=== PATIENT | female | born 1965 | race Caucasian/White ===

== ENCOUNTER 2017-08-10 13:35 | Emergency (ER) | payer OTHER ==
[~2017-08-10 13:35] MED LIST: ASPI-1471 PO; CHOL10005 PO; ESTR0.5T16 PO; ESTR10TA4 VG; FAMO-67 PO; IBUP200C71 PO; IMMUNE SUPPORT PO; LORA-629 PO; PROP10TA58 PO; TURM1POW3 PO; VITA-131 PO; [UNRECOGNIZED DRUG - MIXTURE]; [UNRECOGNIZED DRUG - OTHER] PO
--- NOTE | 2017-08-10 13:48 | ER Report ---
History and Physical Time Seen By MD: 13:47 Hx. of Stated Complaint: Patient reporting a bowel obstruction. HPI/ROS CHIEF COMPLAINT: Abdominal pain, believes she has a small bowel obstruction HISTORY OF PRESENT ILLNESS: 52-year-old female patient presents to emergency room with complaint of is very similar to what obstruction. Since that this started this morning after she ate breakfast. She states that she ate some cereal and vomited. She states she's not been able to eat or drink anything since then. She states the pain is a 10 out of 10. Patient states she has a history of ovarian cancer and has been receiving chemotherapy for this. She states that 6 weeks ago she received chemotherapy and this occurred. She states that her numbers improved and she had more chemotherapy recently. She states that all for abdominal symptoms are today. States last time she had this she is medicated to the hospital for a couple of days. She states that she does not want to have a CAT scan at this time. REVIEW OF SYSTEMS: Respiratory: No cough, no dyspnea. Cardiovascular: No chest pain, no palpitations. Gastrointestinal: As noted above Musculoskeletal: No back pain. Allergies: Coded Allergies: gluten (Verified Allergy, Mild, 06/26/17) Feels better not eating Gluten methimazole (Verified Allergy, Unknown, Hives/Rash, 06/26/17) Home Meds Discontinued Reported Medications Famotidine (FAMOTIDINE) 20 Mg Tablet, 20 MG PO QDAY, TAB 06/26/17 Aspirin (ASPIR 81) 81 Mg Tablet.dr, 81 MG PO QDAY, TAB 06/26/17 [JuJube/ejaio mixture] No Conflict Check, 1 DAILY 01/17/17 [gogi berries] No Conflict Check, 1 TSP PO DAILY 01/17/17 [immune Support] No Conflict Check, 1 CAP PO DAILY 01/17/17 Loratadine (LORATADINE) 10 Mg Tablet, 1 TAB PO DAILY Y for ALLERGY SYMPTOMS 01/17/17 Turmeric (CURCUMIN) 1 Gm Powder, 1000 MG PO DAILY 01/17/17 Vitamin B Complex (VITAMIN B COMPLEX) 1 Each Tablet, 0.5 TAB PO DAILY 01/17/17 Cholecalciferol (Vitamin D3) (VITAMIN D3) 1,000 Unit Tablet, 1 TAB PO DAILY, TAB 01/17/17 Past Medical/Surgical History Patient has a past medical history of ovarian cancer, and frequent alcohol use. Patient has a surgical history of hysterectomy, knee surgery 2, colonoscopy, EGD. Reviewed Nurses Notes: Yes Smoking Status: Never Smoker Hx Substance Use Disorder: No Hx Alcohol Use: Yes (INFREQUENTLY) Constitutional Vital Sign - Last 24 Hours 08/10/17 08/10/17 08/10/17 08/10/17 13:40 13:40 13:45 13:50 Temp 98.7 Pulse 68 69 79 Resp 18 B/P (MAP) 107/69 (82) 107/69 Pulse Ox 90 97 100 97 O2 Delivery Room Air 08/10/17 08/10/17 08/10/17 08/10/17 14:45 14:45 15:15 15:30 Pulse 74 70 B/P (MAP) 103/50 (67) 102/58 (73) Pulse Ox 93 96 O2 Delivery Room Air 08/10/17 08/10/17 08/10/17 08/10/17 15:40 15:45 15:50 15:55 Pulse 69 69 71 B/P (MAP) 101/49 (66) Pulse Ox 94 98 97 96 08/10/17 08/10/17 08/10/17 16:00 16:05 16:10 Pulse 73 69 B/P (MAP) 105/63 (77) Pulse Ox 93 95 96 Intake and Output 08/10/17 08/10/17 08/11/17 15:00 23:00 07:00 Intake Total 700 ml Balance 700 ml Physical Exam General Appearance: The patient is alert, has no immediate need for airway protection and no current signs of toxicity. ENT: Tympanic membranes are pearly-pizarro, auditory canals are patent, mucous membranes are moist. Respiratory: Chest is non tender, lungs are clear to auscultation. Cardiac: regular rate and rhythm Gastrointestinal: Abdomen is mildly distended and tender in the periumbilical region, no masses, bowel sounds hypoactive. Musculoskeletal: Neck: Neck is supple and non tender. Extremities have full range of motion and are non tender. Skin: No rashes or lesions. DIFFERENTIAL DIAGNOSIS: After history and physical exam differential diagnosis was considered for small bowel obstruction, constipation, gastroenteritis, worsening ascites. Medical Decision Making Data Points Result Diagram: 08/10/17 1346 08/10/17 1346 Laboratory Hematology Test 08/10/17 13:46 12/29/17 14:43 Red Blood Count 3.38 M/uL (4.17-5.56) Mean Corpuscular Volume 98.0 fL (80.0-96.0) Mean Corpuscular Hemoglobin 34.0 pg (26.0-33.0) Mean Corpuscular Hemoglobin Concent 34.7 g/dL (32.0-36.0) Red Cell Distribution Width 13.5 % (11.5-14.5) Mean Platelet Volume 6.2 fL (7.2-11.1) Neutrophils (%) (Auto) 87.0 % (39.4-72.5) Lymphocytes (%) (Auto) 9.8 % (17.6-49.6) Monocytes (%) (Auto) 2.6 % (4.1-12.4) Eosinophils (%) (Auto) 0.2 % (0.4-6.7) Basophils (%) (Auto) 0.4 % (0.3-1.4) Nucleated RBC Relative Count (auto) 0.1 /100WBC Neutrophils # (Auto) 4.4 K/uL (2.0-7.4) Lymphocytes # (Auto) 0.5 K/uL (1.3-3.6) Monocytes # (Auto) 0.1 K/uL (0.3-1.0) Eosinophils # (Auto) 0.0 K/uL (0.0-0.5) Basophils # (Auto) 0.0 K/uL (0.0-0.1) Nucleated RBC Absolute Count (auto) 0.01 K/uL Peripheral Blood Smear No Y/N Sodium Level 137 mmol/L (137-145) Potassium Level 3.2 mmol/L (3.5-5.0) Chloride Level 98 mmol/L (98-107) Carbon Dioxide Level 27 mmol/L (22-31) Blood Urea Nitrogen 18 mg/dl (7-18) Creatinine 0.70 mg/dl (0.52-1.04) Glomerular Filtration Rate Calc > 60.0 Random Glucose 108 mg/dl (75-110) Calcium Level 9.6 mg/dl (8.4-10.2) Total Bilirubin 1.1 mg/dl (0.2-1.3) Aspartate Amino Transf (AST/SGOT) 29 U/L (0-35) Alanine Aminotransferase (ALT/SGPT) 32 U/L (0-56) Alkaline Phosphatase 109 U/L (0-126) Total Protein 7.9 gm/dl (6.3-8.2) Albumin 4.1 g/dl (3.5-5.0) Amylase Level 70 U/L (0-110) Lipase 78 U/L (23-300) Urine Color Ciara Urine Clarity Slightly-cloudy Urine pH 5.0 pH (4.8-9.5) Urine Specific [place] 1.028 Urine Protein 30 mg/dL (NEGATIVE) Urine Glucose (UA) Negative mg/dL (NEGATIVE) Urine Ketones 20 mg/dL (NEGATIVE) Urine Blood Negative (NEGATIVE) Urine Nitrite Negative (NEGATIVE) Urine Bilirubin Negative (NEGATIVE) Urine Urobilinogen Negative mg/dL (0.2-1.9) Urine Leukocyte Esterase Trace (NEGATIVE) Urine RBC None /HPF (0-2/HPF) Urine WBC 3 /HPF (0-5/HPF) Urine Squamous Epithelial Cells None /LPF (</=FEW) Urine Calcium Oxalate Crystals Moderate /HPF (NONE) Urine Bacteria Negative /HPF (NONE-FEW) Urine Mucus Few /HPF (NONE-FEW) Chemistry Test 08/10/17 13:46 08/10/17 14:43 White Blood Count 5.0 k/uL (4.5-11.0) Red Blood Count 3.38 M/uL (4.17-5.56) Hemoglobin 11.5 g/dL (12.0-16.0) Hematocrit 33.1 % (34.0-47.0) Mean Corpuscular Volume 98.0 fL (80.0-96.0) Mean Corpuscular Hemoglobin 34.0 pg (26.0-33.0) Mean Corpuscular Hemoglobin Concent 34.7 g/dL (32.0-36.0) Red Cell Distribution Width 13.5 % (11.5-14.5) Platelet Count 272 K/uL (150-450) Mean Platelet Volume 6.2 fL (7.2-11.1) Neutrophils (%) (Auto) 87.0 % (39.4-72.5) Lymphocytes (%) (Auto) 9.8 % (17.6-49.6) Monocytes (%) (Auto) 2.6 % (4.1-12.4) Eosinophils (%) (Auto) 0.2 % (0.4-6.7) Basophils (%) (Auto) 0.4 % (0.3-1.4) Nucleated RBC Relative Count (auto) 0.1 /100WBC Neutrophils # (Auto) 4.4 K/uL (2.0-7.4) Lymphocytes # (Auto) 0.5 K/uL (1.3-3.6) Monocytes # (Auto) 0.1 K/uL (0.3-1.0) Eosinophils # (Auto) 0.0 K/uL (0.0-0.5) Basophils # (Auto) 0.0 K/uL (0.0-0.1) Nucleated RBC Absolute Count (auto) 0.01 K/uL Peripheral Blood Smear No Y/N Glomerular Filtration Rate Calc > 60.0 Calcium Level 9.6 mg/dl (8.4-10.2) Total Bilirubin 1.1 mg/dl (0.2-1.3) Aspartate Amino Transf (AST/SGOT) 29 U/L (0-35) Alanine Aminotransferase (ALT/SGPT) 32 U/L (0-56) Alkaline Phosphatase 109 U/L (0-126) Total Protein 7.9 gm/dl (6.3-8.2) Albumin 4.1 g/dl (3.5-5.0) Amylase Level 70 U/L (0-110) Lipase 78 U/L (23-300) Urine Color Ciara Urine Clarity Slightly-cloudy Urine pH 5.0 pH (4.8-9.5) Urine Specific [place] 1.028 Urine Protein 30 mg/dL (NEGATIVE) Urine Glucose (UA) Negative mg/dL (NEGATIVE) Urine Ketones 20 mg/dL (NEGATIVE) Urine Blood Negative (NEGATIVE) Urine Nitrite Negative (NEGATIVE) Urine Bilirubin Negative (NEGATIVE) Urine Urobilinogen Negative mg/dL (0.2-1.9) Urine Leukocyte Esterase Trace (NEGATIVE) Urine RBC None /HPF (0-2/HPF) Urine WBC 3 /HPF (0-5/HPF) Urine Squamous Epithelial Cells None /LPF (</=FEW) Urine Calcium Oxalate Crystals Moderate /HPF (NONE) Urine Bacteria Negative /HPF (NONE-FEW) Urine Mucus Few /HPF (NONE-FEW) Urinalysis Test 08/10/17 14:43 Urine Color Ciara Urine Clarity Slightly-cloudy Urine pH 5.0 pH (4.8-9.5) Urine Specific [place] 1.028 Urine Protein 30 mg/dL (NEGATIVE) Urine Glucose (UA) Negative mg/dL (NEGATIVE) Urine Ketones 20 mg/dL (NEGATIVE) Urine Blood Negative (NEGATIVE) Urine Nitrite Negative (NEGATIVE) Urine Bilirubin Negative (NEGATIVE) Urine Urobilinogen Negative mg/dL (0.2-1.9) Urine Leukocyte Esterase Trace (NEGATIVE) Urine RBC None /HPF (0-2/HPF) Urine WBC 3 /HPF (0-5/HPF) Urine Squamous Epithelial Cells None /LPF (</=FEW) Urine Calcium Oxalate Crystals Moderate /HPF (NONE) Urine Bacteria Negative /HPF (NONE-FEW) Urine Mucus Few /HPF (NONE-FEW) EKG/Imaging Imaging Exam type: KUB SINGLE VIEW ABDOMEN History: Small bowel obstruction, abdomen pain and cramping Comparison: The liver 2016. Findings: There is a moderate amount of fecal material seen in the colon. Air is seen in a loop of small bowel in the left upper quadrant which appears nonspecific. No gross evidence of organomegaly. There are calcified phleboliths in the pelvis. IMPRESSION: 1. There is a moderate amount of fecal material seen throughout the colon which can be seen with constipation. If a small bowel obstruction remains a strong clinical concern CT of abdomen pelvis recommended Report Dictated By: Lainey Mendez MD at 08/10/2017 2:09 PM Report E-Signed By: Lainey Mendez MD at 08/10/2017 2:11 PM ED Course/Re-evaluation ED Course Patient was admitted to exam room, history and physical were obtained. Differential diagnoses were considered. On examination patient was having significant amounts of discomfort. A CBC, CMP, urinalysis, KUB were done. Lab results were unremarkable, urine was negative. KUB showed moderate amount stool consistent with constipation. I discussed with patient. She talked about doing a paracentesis for improved comfort. I discussed this with Dr. Larsen, surgeon, who felt this would be a little excessive. He recommended going ahead and treating the constipation, and if there's no improvement in the next 24-48 hours the patient returned, ultrasound would ultrasound the abdomen and possibly do a paracentesis. I discussed this with the patient. Patient states she's feeling significantly improved, her pain levels were down considerably. We did give her a cup of coffee which she was able to tolerate without any vomiting. We will go ahead and discharge patient home at this time. I discussed this with the patient who verbalized understanding and agreement. Decision to Disposition Date: Aug 10, 2017 Decision to Disposition Time: 16:03 Depart Departure Latest Vital Signs Vital Signs Date Time Temp Pulse Resp B/P (MAP) Pulse Ox O2 Delivery O2 Flow Rate FiO2 08/10/17 16:10 96 08/10/17 16:05 69 08/10/17 16:00 105/63 (77) 08/10/17 14:45 Room Air 08/10/17 13:40 98.7 18 Impression: Primary Impression: Abdominal pain Additional Impression: Constipation Condition: Improved Disposition: HOME OR SELF-CARE Referrals: JOSÉ PÉREZ MD (PCP) New Scripts No Active Prescriptions or Reported Meds Patient Instructions: Abdominal Pain (ED) Additional Instructions: Limit activity by pain. Increase fluid intake. Continue with walking. Return to the ER if condition worsens. At that time we will do an Ultrasound and see how much ascites we have. Take the Mag citrate to have a bowel movement. Problem Qualifiers Primary Impression: Abdominal pain Abdominal location: generalized Qualified Codes: R10.84 - Generalized abdominal pain Additional Impression: Constipation Constipation type: unspecified constipation type Qualified Codes: K59.00 - Constipation, unspecified CARLA FORREST Aug 10, 2017 13:48
[2017-08-10] MEDS ORDERED: NS(*) 0.9% 1000 ML BAG 1,000 ML IV ONE (13:51)
[2017-08-10] MEDS ORDERED: ONDANSETRON 4 MG/2 ML VIAL IVP ONE (13:55)
[2017-08-10] MEDS ORDERED: MORPHINE 4 MG/ML SYR IVP ONE (13:55)
[2017-08-10 13:59] LABS: PLATELET COUNT, AUTOMATED 272 K/uL (150-450)
--- NOTE | 2017-08-10 14:15 | RADIOLOGY IMAGING REPORT ---
FACILITY: [facility] PATIENT NAME: Laverne Mcadams : 1965 MR: [id number] V: [id number] EXAM DATE: ORDERING PHYSICIAN: CARLA FORREST TECHNOLOGIST: Location: [facility] [place] Patient: Laverne Mcadams : 1965 Visit/Account:[id number] Date of Sevice: 08/10/2017 Exam type: KUB SINGLE VIEW ABDOMEN History: Small bowel obstruction, abdomen pain and cramping Comparison: The liver 2016. Findings: There is a moderate amount of fecal material seen in the colon. Air is seen in a loop of small bowel in the left upper quadrant which appears nonspecific. No gross evidence of organomegaly. There are calcified phleboliths in the pelvis. IMPRESSION: 1. There is a moderate amount of fecal material seen throughout the colon which can be seen with con stipation. If a small bowel obstruction remains a strong clinical concern CT of abdomen pelvis recom mended Report Dictated By: Lainey Mendez MD at 08/10/2017 2:09 PM Report E-Signed By: Lainey Mendez MD at 08/10/2017 2:11 PM WSN:[id number]
[2017-08-10 16:00] VITALS: BP 105/63
[2017-08-10] MEDS ORDERED: MAGNESIUM CITRATE 300 ML BTL PO ONE (16:05)
== END 2017-08-10 16:21 | disposition home or self-care (01) ==
LOC: ER 14:00
DX: K59.00 Constipation, unspecified (principal)
CPT/HCPCS: 74000; 81001; 82150; 83690; 85025; 87088; 96374; 96375; 99284; J2270; J2405; 82040; 82247; 82310; 82374; 82435; 82565; 82947; 84075; 84132; 84155; 84295; 84450; 84460; 84520

== ENCOUNTER 2018-01-16 12:29 | Inpatient (IN) | payer OTHER ==
[~2018-01-16] VITALS: Ht 162.6 cm; Wt 55.8 kg
[2018-01-16] MEDS ORDERED: [UNRECOGNIZED DRUG - CODE] PO (12:48)
[2018-01-16] MEDS ORDERED: BEV100I IV (12:48)
[2018-01-16] MEDS ORDERED: NS(*) 0.9% 1000 ML BAG 1,000 ML IV ONE (12:51)
[2018-01-16] MEDS ORDERED: ONDANSETRON 4 MG/2 ML VIAL IVP ONE (12:55)
--- NOTE | 2018-01-16 12:55 | ER Report ---
History and Physical Time Seen By MD: 12:45 Hx. of Stated Complaint: ABDOMINAL PAINSINCE LAST EVENING. HAS CERVICAL CANCER. THIS PAIN FEELS SIMILAR TO WHEN SHE WAS ADMITTED FOR A BOWEL OBSTRUCTIONS LAST FALL HPI/ROS CHIEF COMPLAINT: Abdominal pain HISTORY OF PRESENT ILLNESS: 52-year-old female comes emergency Department today with periumbilical and infraumbilical abdominal pain which is guaiac last 2 days and decreased bowel movements she's taking laxatives 3 with some mild return patient is a long history of ovarian cancer with metastatic changes consistent with intra-abdominal metastatic cancer she has had a complete hysterectomy and oophorectomy including fallopian tubes she has had both peritoneal chemotherapy as well as IV chemotherapy with her last being somewhat successful she states that she's had small bowel obstructions in the past but has not required surgical intervention last one was about a week or 2 ago where she was able to medically manage as an outpatient. Patient has had no nausea vomiting but has had abdominal pain again localized infraumbilical area dull aching cramping comes and goes relieved with [id number] pain medication and with hot towels patient denies any urinary complaints bladder bowel incontinence REVIEW OF SYSTEMS: Respiratory: No cough, no dyspnea. Cardiovascular: No chest pain, no palpitations. Gastrointestinal: Abdominal pain without vomiting constipation Musculoskeletal: No back pain. Remainder of the 14 system rev: Yes Allergies: Coded Allergies: gluten (Verified Allergy, Mild, 01/16/18) Feels better not eating Gluten methimazole (Verified Allergy, Unknown, Hives/Rash, 01/16/18) Home Meds Reported Medications Creatine Monohydrate (CYTOTINE) 1.5 Gm/15 Ml Liquid, 1.5 GM PO 01/16/18 Bevacizumab (AVASTIN) 100 Mg/4 Ml Injs, 100 MG IV 01/16/18 Reviewed Nurses Notes: Yes Old Medical Records Reviewed: Yes Smoking Status: Never Smoker Hx Substance Use Disorder: No Hx Alcohol Use: Yes (INFREQUENTLY) Constitutional Vital Sign - Last 24 Hours 01/16/18 01/16/18 01/16/18 01/16/18 12:36 12:43 12:44 12:45 Temp 97.5 Pulse 50 54 Resp 16 B/P (MAP) 141/87 (105) 141/87 125/76 (92) Pulse Ox 92 95 O2 Delivery Room Air 01/16/18 01/16/18 01/16/18/6/18 12:59 13:00 13:14 13:15 Pulse 62 83 B/P (MAP) 115/80 (92) 113/89 (97) Pulse Ox 92 92 01/16/18 01/16/18 01/16/18 01/16/18 13:29 13:30 13:44 13:45 Pulse ??? 57 B/P (MAP) ???/??? (1665) 108/85 (93) 107/79 (88) Pulse Ox 96 01/16/18 01/16/18 01/16/18 13:59 14:00 14:14 Pulse 64 B/P (MAP) 118/76 (90) Pulse Ox 93 O2 Flow Rate 2.0 Physical Exam General Appearance: The patient is alert, has no immediate need for airway protection and no current signs of toxicity. [ ] Eyes: Pupils equal and round no injection. Respiratory: Chest is non tender, lungs are clear to auscultation. Cardiac: regular rate and rhythm [ ] Gastrointestinal: Abdomen examination demonstrates a firm to palpation in about a 6 x 10 cm area infra-abdominal umbilical area no rebound with some mild tenderness to palpation decreased bowel sounds around the area otherwise unremarkable exam Musculoskeletal: Neck: Neck is supple and non tender. Extremities have full range of motion and are non tender. Skin: No rashes or lesions. [ ] DIFFERENTIAL DIAGNOSIS: After history and physical exam differential diagnosis was considered for small bowel obstruction colitis and enteritis Medical Decision Making Data Points Result Diagram: 01/16/18 1309 01/16/18 1309 Laboratory Hematology Test 01/16/18 12:38 01/16/18 13:09 Urine Color Ciara Urine Clarity Slightly-cloudy Urine pH 5.0 pH (4.8-9.5) Urine Specific [place] 1.025 Urine Protein 30 mg/dL (NEGATIVE) Urine Glucose (UA) Negative mg/dL (NEGATIVE) Urine Ketones 20 mg/dL (NEGATIVE) Urine Blood Negative (NEGATIVE) Urine Nitrite Negative (NEGATIVE) Urine Bilirubin Negative (NEGATIVE) Urine Urobilinogen Negative mg/dL (0.2-1.9) Urine Leukocyte Esterase Negative (NEGATIVE) Urine RBC 2 /HPF (0-2/HPF) Urine WBC 3 /HPF (0-5/HPF) Urine Squamous Epithelial Cells Moderate /LPF (</=FEW) Urine Bacteria Negative /HPF (NONE-FEW) Urine Hyaline Casts Few /LPF (NONE-FEW) Urine Mucus Few /HPF (NONE-FEW) Red Blood Count 4.50 M/uL (4.17-5.56) Mean Corpuscular Volume 98.0 fL (80.0-96.0) Mean Corpuscular Hemoglobin 34.5 pg (26.0-33.0) Mean Corpuscular Hemoglobin Concent 35.2 g/dL (32.0-36.0) Red Cell Distribution Width 14.8 % (11.5-14.5) Mean Platelet Volume 6.8 fL (7.2-11.1) Neutrophils (%) (Auto) 73.4 % (39.4-72.5) Lymphocytes (%) (Auto) 14.5 % (17.6-49.6) Monocytes (%) (Auto) 8.6 % (4.1-12.4) Eosinophils (%) (Auto) 2.5 % (0.4-6.7) Basophils (%) (Auto) 1.0 % (0.3-1.4) Nucleated RBC Relative Count (auto) 0.1 /100WBC Neutrophils # (Auto) 3.7 K/uL (2.0-7.4) Lymphocytes # (Auto) 0.7 K/uL (1.3-3.6) Monocytes # (Auto) 0.4 K/uL (0.3-1.0) Eosinophils # (Auto) 0.1 K/uL (0.0-0.5) Basophils # (Auto) 0.1 K/uL (0.0-0.1) Nucleated RBC Absolute Count (auto) 0.00 K/uL Prothrombin Time 13.0 seconds (12.0-14.4) Prothromb Time International Ratio 0.98 Activated Partial Thromboplast Time 26 seconds (23-35) Sodium Level 133 mmol/L (137-145) Potassium Level 4.0 mmol/L (3.5-5.0) Chloride Level 96 mmol/L (98-107) Carbon Dioxide Level 21 mmol/L (22-31) Blood Urea Nitrogen 15 mg/dl (7-18) Creatinine 0.90 mg/dl (0.52-1.04) Glomerular Filtration Rate Calc > 60.0 Random Glucose 101 mg/dl (75-110) Calcium Level 9.8 mg/dl (8.4-10.2) Total Bilirubin 1.5 mg/dl (0.2-1.3) Aspartate Amino Transf (AST/SGOT) 32 U/L (0-35) Alanine Aminotransferase (ALT/SGPT) 42 U/L (0-56) Alkaline Phosphatase 105 U/L (0-126) Total Protein 7.6 gm/dl (6.3-8.2) Albumin 4.3 g/dl (3.5-5.0) Lipase 155 U/L (23-300) Chemistry Test 01/16/18 12:38 01/16/18 13:09 Urine Color Ciara Urine Clarity Slightly-cloudy Urine pH 5.0 pH (4.8-9.5) Urine Specific [place] 1.025 Urine Protein 30 mg/dL (NEGATIVE) Urine Glucose (UA) Negative mg/dL (NEGATIVE) Urine Ketones 20 mg/dL (NEGATIVE) Urine Blood Negative (NEGATIVE) Urine Nitrite Negative (NEGATIVE) Urine Bilirubin Negative (NEGATIVE) Urine Urobilinogen Negative mg/dL (0.2-1.9) Urine Leukocyte Esterase Negative (NEGATIVE) Urine RBC 2 /HPF (0-2/HPF) Urine WBC 3 /HPF (0-5/HPF) Urine Squamous Epithelial Cells Moderate /LPF (</=FEW) Urine Bacteria Negative /HPF (NONE-FEW) Urine Hyaline Casts Few /LPF (NONE-FEW) Urine Mucus Few /HPF (NONE-FEW) White Blood Count 5.1 k/uL (4.5-11.0) Red Blood Count 4.50 M/uL (4.17-5.56) Hemoglobin 15.5 g/dL (12.0-16.0) Hematocrit 44.1 % (34.0-47.0) Mean Corpuscular Volume 98.0 fL (80.0-96.0) Mean Corpuscular Hemoglobin 34.5 pg (26.0-33.0) Mean Corpuscular Hemoglobin Concent 35.2 g/dL (32.0-36.0) Red Cell Distribution Width 14.8 % (11.5-14.5) Platelet Count 311 K/uL (150-450) Mean Platelet Volume 6.8 fL (7.2-11.1) Neutrophils (%) (Auto) 73.4 % (39.4-72.5) Lymphocytes (%) (Auto) 14.5 % (17.6-49.6) Monocytes (%) (Auto) 8.6 % (4.1-12.4) Eosinophils (%) (Auto) 2.5 % (0.4-6.7) Basophils (%) (Auto) 1.0 % (0.3-1.4) Nucleated RBC Relative Count (auto) 0.1 /100WBC Neutrophils # (Auto) 3.7 K/uL (2.0-7.4) Lymphocytes # (Auto) 0.7 K/uL (1.3-3.6) Monocytes # (Auto) 0.4 K/uL (0.3-1.0) Eosinophils # (Auto) 0.1 K/uL (0.0-0.5) Basophils # (Auto) 0.1 K/uL (0.0-0.1) Nucleated RBC Absolute Count (auto) 0.00 K/uL Prothrombin Time 13.0 seconds (12.0-14.4) Prothromb Time International Ratio 0.98 Activated Partial Thromboplast Time 26 seconds (23-35) Glomerular Filtration Rate Calc > 60.0 Calcium Level 9.8 mg/dl (8.4-10.2) Total Bilirubin 1.5 mg/dl (0.2-1.3) Aspartate Amino Transf (AST/SGOT) 32 U/L (0-35) Alanine Aminotransferase (ALT/SGPT) 42 U/L (0-56) Alkaline Phosphatase 105 U/L (0-126) Total Protein 7.6 gm/dl (6.3-8.2) Albumin 4.3 g/dl (3.5-5.0) Lipase 155 U/L (23-300) Coagulation Test 01/16/18 13:09 Prothrombin Time 13.0 seconds Prothromb Time International Ratio 0.98 Activated Partial Thromboplast Time 26 seconds Urinalysis Test 01/16/18 12:38 Urine Color Ciara Urine Clarity Slightly-cloudy Urine pH 5.0 pH (4.8-9.5) Urine Specific [place] 1.025 Urine Protein 30 mg/dL (NEGATIVE) Urine Glucose (UA) Negative mg/dL (NEGATIVE) Urine Ketones 20 mg/dL (NEGATIVE) Urine Blood Negative (NEGATIVE) Urine Nitrite Negative (NEGATIVE) Urine Bilirubin Negative (NEGATIVE) Urine Urobilinogen Negative mg/dL (0.2-1.9) Urine Leukocyte Esterase Negative (NEGATIVE) Urine RBC 2 /HPF (0-2/HPF) Urine WBC 3 /HPF (0-5/HPF) Urine Squamous Epithelial Cells Moderate /LPF (</=FEW) Urine Bacteria Negative /HPF (NONE-FEW) Urine Hyaline Casts Few /LPF (NONE-FEW) Urine Mucus Few /HPF (NONE-FEW) ED Course/Re-evaluation ED Course Small bowel obstruction admitted by surgery confirmed on CT scan Decision to Disposition Date: Jan 16, 2018 Decision to Disposition Time: 14:42 Depart Departure Latest Vital Signs Vital Signs Date Time Temp Pulse Resp B/P (MAP) Pulse Ox O2 Delivery O2 Flow Rate FiO2 01/16/18 14:14 2.0 01/16/18 14:00 118/76 (90) 01/16/18 13:59 64 93 01/16/18 12:43 97.5 16 Room Air Impression: Primary Impression: Small bowel obstruction Condition: Improved Disposition: Admitted from ER Referrals: JOSÉ PÉREZ MD (PCP) MYNOR GARIBAY MD Jan 16, 2018 12:55
[2018-01-16 13:22] LABS: PLATELET COUNT, AUTOMATED 311 K/uL (150-450)
[2018-01-16] MEDS ORDERED: IOPAMIDOL 76% 75 ML INFUS BTL 75 ML ONE (13:29)
[2018-01-16 13:38] LABS: INR 0.98
--- NOTE | 2018-01-16 13:54 | RADIOLOGY IMAGING REPORT ---
FACILITY: [facility] PATIENT NAME: Laverne Mcadams : 1965 MR: [id number] V: [id number] EXAM DATE: ORDERING PHYSICIAN: MYNOR GARIBAY TECHNOLOGIST: Location: [facility] [place] Patient: Laverne Mcadams : 1965 Visit/Account:[id number] Date of Sevice: 01/16/2018 2 VIEWS CHEST INDICATION: Abdominal pain. COMPARISON: 06/26/2017 FINDINGS: Tiny calcified nodule seen in the left mid and upper lung characteristic of old granulomatous disease . Subtle asymmetric opacity overlies the right lung base and overlies the anterior margin of the sixt h rib. This was seen on prior study. This could represent overlying osseous and vascular structures o r even a nipple shadow. No effusion or pneumothorax is seen. Heart size and mediastinal contours are normal. IMPRESSION: 1. No radiographic evidence of active disease. 2. No interval change. Report Dictated By: Akbar Gao at 01/16/2018 1:45 PM Report E-Signed By: Akbar Gao at 01/16/2018 1:50 PM WSN:[id number]
[2018-01-16] MEDS ORDERED: HYDROmorphone* 1 MG/ML 1 MG/ML ML IVP ONE (14:00)
--- NOTE | 2018-01-16 14:12 | RADIOLOGY IMAGING REPORT ---
[place] [facility] [place] Laverne Mcadams : 1965 MR: [id number] V: [id number] EXAM DATE: ORDERING PHYSICIAN: MYNOR GARIBAY TECHNOLOGIST: Location: [facility] [place] Patient: Laverne Mcadams : 1965 Visit/Account:[id number] Date of Sevice: 01/16/2018 ABDOMEN/PELVIS WITH CONTRAST HISTORY: pain ro sbo TECHNIQUE: Following administration of IV contrast contiguous axial images acquired through the abdom en/pelvis. Coronal and sagittal reformatting also performed. Dose Lowering Technique One of the following dose optimization techniques was utilized in the performance of this exam: Autom ated exposure control; adjustment of the mA and/or kV according to the patient's size; or use of an i terative reconstruction technique. Specific details can be referenced in the facility's radiology C T exam operational policy. CONTRAST: 75 mL Isovue-370 COMPARISON: June 26, 2017 FINDINGS: Visualized lung bases: Negative. Hepatobiliary: The previously noted 7 mm subcapsular hypodensity lateral inferior right lobe the live r appears unchanged and is best seen on image 173.. Previously noted 9 mm hypodense lesion lateral a spect right lobe the liver also remains unchanged best seen on image 113. There is a 6 mm subcapsula r hypodensity superolateral aspect the right lobe best seen on image 70 which is faintly seen on the prior study and appears relatively unchanged in size. Spleen: Negative. Adrenals: Negative. Pancreas: Negative. Kidneys ureters or bladder: Kidneys appear grossly unremarkable. The bladder is decompressed Genitalia: Hysterectomy GI: There are numerous loops of moderately dilated fluid-filled small bowel in the mid and lower abd omen measuring up to 3.6 cm in diameter.. There is a possible transitional point in the anterior rig ht mid to lower abdomen. The colon and terminal ileum appear decompressed Vessels/spaces/nodes: There is a small amount of abdominal and pelvic ascites . Bones/soft tissues: Negative. Additional findings: None pertinent. IMPRESSION: There are multiple dilated small bowel loops throughout the abdomen with a possible transitional poin t in the anterior right mid to lower abdomen. The colon appears decompressed as does the terminal il eum findings are likely related to a small bowel obstruction Small amount of abdominal and pelvic ascites Small hypodensities in the liver appear unchanged Results were called to MYNOR GARIBAY at 01/16/2018 2:08 PM. Report Dictated By: Lainey Mendez MD at 01/16/2018 1:47 PM Report E-Signed By: Lainey Mendez MD at 01/16/2018 2:08 PM [email or web address]
[2018-01-16 15:27] VITALS: BP 116/78
--- NOTE | 2018-01-16 16:12 | RADIOLOGY IMAGING REPORT ---
FACILITY: [facility] - [place] PATIENT NAME: Laverne Mcadams : 1965 MR: [id number] V: [id number] EXAM DATE: ORDERING PHYSICIAN: MYNOR GARIBAY TECHNOLOGIST: Location: [facility] Patient: Laverne Mcadams : 1965 Visit/Account:[id number] Date of Sevice: 01/16/2018 KUB SINGLE VIEW ABDOMEN HISTORY: NG TUBE PLACEMENT Additional history: SBO COMPARISON: Comparison made to abdomen/pelvis CT performed earlier today. FINDINGS: NG tube appears appropriately positioned in the stomach. Again seen are distended loops of small bow el and absent gas in the colon consistent with history of small bowel obstruction. In reviewing the previous CT scan I believe the obstruction is in fact that the terminal ileum. The appendix can be s een on the previous CT scan and is normal. Prior CT scan demonstrates free fluid which is likely inf lammatory. There is no free air on the prior study. There is mild right-sided hydronephrosis and ureterectasis which terminates in the region of small everardo wel obstruction. This is due to extrinsic compression by the obstructed segment. IMPRESSION: NG tube appears well-positioned. Retained contrast in a mildly distended right renal collecting system which is related to extrinsic c ompression at the level of the GI obstruction. In reviewing the CT actually the area of obstruction is at the terminal ileum (any history of Crohn's disease?). Report Dictated By: Misael Bull MD at 01/16/2018 3:53 PM Report E-Signed By: Misael Bull MD at 01/16/2018 4:07 PM WSN:[email or web address]
[2018-01-16] MEDS ORDERED: ONDANSETRON 4 MG/2 ML VIAL IVP PRN (16:50)
[2018-01-16] MEDS ORDERED: MORPHINE 1 MG/ML 30 ML PCA IV PRN (16:50)
--- NOTE | 2018-01-16 16:59 | General Surgery 1 H&P ---
History of Present Illness Chief Complaint abdominal pain History of Present Illness 52 yo female with a history of metastatic ovarian cancer. she is currently on chemotherapy and had avastin one week ago. she had a franklin and bso in 2017 for her cancer. she had a recurrence and had another debulking procedure in 2017. she developed a sbo in jul that resolved with conservative management. yesterday she developed periumbilical abdominal pain that was quite severe. no emesis. no fever. seen in ed she has normal wbc and a ct which suggests a distal sbo. pt would like to enter a clinical trial for continued treatment for her ovarian cancer. her gynecologic surgeon is in [facility] History Other Past Surgeries: franklin and bso and a debulking operation Home Meds Reported Medications Creatine Monohydrate (CYTOTINE) 1.5 Gm/15 Ml Liquid, 1.5 GM PO 01/16/18 Bevacizumab (AVASTIN) 100 Mg/4 Ml Injs, 100 MG IV 01/16/18 Allergies: Coded Allergies: gluten (Verified Allergy, Mild, 01/16/18) Feels better not eating Gluten methimazole (Verified Allergy, Unknown, Hives/Rash, 01/16/18) Family History: FH: COPD (chronic obstructive pulmonary disease) FATHER FH: Gilbert's disease FATHER FH: arthritis FATHER FH: celiac disease FH: hypothyroidism CHILD CHILD FH: multiple sclerosis BROTHER OR SISTER BROTHER OR SISTER FH: osteoporosis MOTHER BROTHER OR SISTER Graves' disease Review of Systems History of Hypertension?: No History of Diabetes?: No History of DVT?: No Obstructive Sleep Apnea?: No History of Liver Disease?: No History of Kidney Disease?: No Exam Vital Signs Date Time Temp Pulse Resp B/P (MAP) Pulse Ox O2 Delivery O2 Flow Rate FiO2 01/16/18 16:00 99 Nasal Cannula 2.0 01/16/18 15:27 98.7 51 12 116/78 (91) General Appearance: Alert, Awake GI: Other (her abdomen is distended in the lower abdomen with a firmness that is not found above the umbilicus. she states it has been like that for some time.) Medical Decision Making Data Points Result Diagram: 01/16/18 1309 01/16/18 1309 Assessment and Plan Problems: (1) Small bowel obstruction Status: Acute Assessment & Plan: admit , npo iv hydration and analgesia. ng tube and try conservative management. Copies to: CHIKIS CARDONA MD Venous Thromboembolism Antithrombotics Is Pt On Any Antithrombotics?: No CHIKIS CARDONA MD Jan 16, 2018 16:59
[2018-01-16 19:43] VITALS: BP 116/63
[2018-01-16] MEDS: NORMOSOL R SOLN(*) 1000 ML BAG 1,000 ML IV PRN (20:02)
[2018-01-16] MEDS ORDERED: CYCL50CA PO (20:58)
[2018-01-16] MEDS ORDERED: CHOL100058 PO (20:58)
[2018-01-17 00:11] VITALS: BP 130/75
[2018-01-17] MEDS: NORMOSOL R SOLN(*) 1000 ML BAG 1,000 ML IV PRN (02:14)
[2018-01-17 05:34] VITALS: BP 100/66
[2018-01-17 05:48] LABS: PLATELET COUNT, AUTOMATED 233 K/uL (150-450)
[2018-01-17] MEDS ORDERED: NORMOSOL R SOLN(*) 1000 ML BAG 1,000 ML IV PRN (07:06)
--- NOTE | 2018-01-17 07:09 | General Surgery Progress Note ---
Subjective Progress Notes Subjective no pain , no nausea, ng about 175 cc Physical Exam Vital Signs Date Time Temp Pulse Resp B/P (MAP) Pulse Ox O2 Delivery O2 Flow Rate FiO2 01/17/18 05:34 98.0 60 100/66 (77) 97 Nasal Cannula 2.0 01/16/18 20:50 14 General Appearance: Alert, Awake GI: Soft and Non-Tender (no flatus or bm) Result Diagram: 01/17/18 0533 01/16/18 1309 Assessment and Plan Problems: (1) Small bowel obstruction Status: Acute Assessment & Plan: admit , npo iv hydration and analgesia. ng tube and try conservative management. 01/17/18 stable. Exam Sepsis Risk: No Definite Risk CHIKIS CARDONA MD Jan 17, 2018 07:09
[2018-01-17 08:09] VITALS: BP 91/65
[2018-01-17] MEDS ORDERED: PANTOPRAZOLE SOD 40 MG IV VIAL IVP SCH (09:00)
[2018-01-17] MEDS ORDERED: ENOXAPARIN 40 MG/0.4ML SYR SC SCH (09:00)
[2018-01-17 11:36] VITALS: BP 112/62
--- NOTE | 2018-01-17 14:00 | Medical Nutrition Therapy ---
Nutrition Anthropometrics Height (Inches): 64.00 Height (Calculated Centimeters: 162.211877 Weight (Pounds): 123 Weight (Calculated Kilograms): 55.792 BMI: 21 Akira Nutrition Score: Adequate Akira Nutrition Risk Score: 21 Dietary Referral Nutrition Risk Factors: Nutrition Risk Comment: Physical Findings Physical Appearance: BMI 21 WNR Skin Appearance Skin Appearance: Edema Edema Location Modifier: Edema Location: Type of Edema: Degree of Edema: Gastrointestinal Symptoms GI Symtoms: Change in Bowel Pattern Tube Present: NG Bowel Sounds: Recent Bowel Pattern: Stool Characteristics: Nutritional Diagnosis Nutritional Risk Acuity 1: GI Obstruction (SBO) Nutritional Risk Acuity 3: Cancer, Gastritis/Gastroenteritis Past Medical History: Reocurrent carcinoma of ovary, constipation, abdominal pain, small bowl obstruction, cervical cancer Nutritional Acuity: 1-High Nutrition Diagnosis: Inadequate Food Intake, Altered GI Function Nutrition Etiology: Physiological Causes Nutrition Problem/Etiology/Sym: Altered GI function related to physiological causes AEB SBO. Inadequate oral intake related to SBO AEB clear liquid diet and doctor order for ng placement. Energy Requirement: 1643 ([place]- St. Jeor X 1.1 [id number] kcal/day) Protein Requirement: 61 (1.1g/kg help with healing.) Fluid Requirement: 1671 (30ml/kg ) Diet Type: Clear Liquids Nutrition Intervention: Encourage intake, Nutrition support, Change diet Nutrition Monitoring & Eval Nutrition Goals: Eat 50-100% Meal RD Patient Assessment Time: [address] Assessment Type: RD Assessment Patient Nutrition Acuity: 1-High Follow Up Date: Jan 19, 2018 Nutritional Comment: 6/7 Pt admitted for SBO. Pt experienced severe abdominal pain. Pt has hx of SBO, but states she has been able to manage it without surgery. Pt has cervical cancer and is receiving treatment from cancer center. Pt is on a clear liquid diet with no oral intake recorded at this time. Ng tube is ordered and try will conservative management. Continue to monitor pt progress and diet advancement. TRINITY NUÑEZJUSTIN Jan 17, 2018 09:59
--- NOTE | 2018-01-17 14:27 | General Surgery Progress Note ---
Subjective Progress Notes Subjective tolerating clears, no nausea or pain, wants to go home Physical Exam Vital Signs Date Time Temp Pulse Resp B/P (MAP) Pulse Ox O2 Delivery O2 Flow Rate FiO2 01/17/18 14:06 95 01/17/18 11:36 97.9 53 112/62 (79) Room Air 01/17/18 05:34 2.0 01/16/18 20:50 14 Intake and Output 01/18/18 06:59 Intake Total 1702 ml Balance 1702 ml Intake Oral 720 ml IV Total 982 ml # Voids 1 # Bowel Movements 1 GI: Other (had bm) Result Diagram: 01/17/18 0533 01/16/18 1309 Assessment and Plan Problems: (1) Small bowel obstruction Status: Acute Assessment & Plan: admit , npo iv hydration and analgesia. ng tube and try conservative management. 01/17/18 stable. 01/17 had bm, no pain and wants to go home, will discharge Exam Sepsis Risk: No Definite Risk CHIKSI CARDONA MD Jan 17, 2018 14:27
--- NOTE | 2018-01-17 14:28 | Short(Outpt) Discharge Summary ---
Discharge Summary Reason for Hosp/Final Diag: (1) Small bowel obstruction Status: Acute Hospital Course & Plan: admit , npo iv hydration and analgesia. ng tube and try conservative management. 01/17/18 stable. 01/17 had bm, no pain and wants to go home, will discharge Departure Discharge to: Home Discharge Instructions Home Meds Reported Medications Cyclophosphamide (Cyclophosphamide) 50 Mg Capsule, 50 MG PO QDAY, CAPSULE 01/16/18 Cholecalciferol (Vitamin D3) (VITAMIN D) 1,000 Unit Capsule, 1000 UNIT PO, CAPSULE 01/16/18 Bevacizumab (AVASTIN) 100 Mg/4 Ml Injs, 100 MG IV Q3WK 01/16/18 Discontinued Reported Medications Creatine Monohydrate (CYTOTINE) 1.5 Gm/15 Ml Liquid, 1.5 GM PO 01/16/18 Diet: Regular Activity: As Tolerated Special Instructions: Follow up with your regular doctor and be careful of what you eat today. CHIKIS CARDONA MD Jan 17, 2018 14:28
== END 2018-01-17 14:00 | disposition home or self-care (01) | DRG 389 ==
LOC: ER 12:34 → MED 14:44
PROVIDERS: ADMIT Surgery; ATTEND Surgery
PROC: 0D9670Z Drainage of Stomach with Drainage Device, Via Natural or Artificial Opening (ICD-10-PCS; principal; 2018-01-16)
DX: K56.609 Unspecified intestinal obstruction, unspecified as to partial versus complete obstruction (principal); C79.89 Secondary malignant neoplasm of other specified sites; C53.9 Malignant neoplasm of cervix uteri, unspecified; Z90.710 Acquired absence of both cervix and uterus; Z88.8 Allergy status to other drugs, medicaments and biological substances; Z92.21 Personal history of antineoplastic chemotherapy
CPT/HCPCS: 36415; 71046; 74018; 74177; 81001; 82040; 82247; 82310; 82374; 82435; 82565; 82947; 83690; 84075; 84132; 84155; 84295; 84450; 84460; 84520; 85025; 85610; 85730; C9113; J1170; J1650; J2270; J2405; J7030; Q9967

== ENCOUNTER 2018-05-04 10:41 | Observation (INO) | payer OTHER ==
[~2018-05-04] VITALS: Ht 162.6 cm; Wt 53.1 kg
[~2018-05-04 10:41] MED LIST changes: +BEV100I IV; +CHOL100058 PO; +CYCL50CA PO; +IBUP-136 PO; -IBUP200C71 PO; +[UNRECOGNIZED DRUG - CODE] PO
[2018-05-04] MEDS ORDERED: PITA4TAB PO (10:48)
--- NOTE | 2018-05-04 10:54 | ER Report ---
History and Physical Time Seen By MD: 10:51 HPI/ROS CHIEF COMPLAINT: Abdominal pain HISTORY OF PRESENT ILLNESS: This is a 53-year-old female presents to the emergency department for abdominal pain. Patient has a history of ovarian cancer with metastasis. Patient states that she recently had improved tumor markers, has been had improvement, had PET scan which did show marked improvement of cancer. Patient states that last night she began to develop some abdominal pain. Progressively getting worse throughout the course of the night, she did have some small bowel movements, flatus, nausea and some vomiting. Home enema today, which did produce some stool. Patient did have a small bowel obstruction in January, was admitted to the hospital. Patient is concerned that this is a recurrence. Patient has had nausea. No fevers or chills. No chest pain or shortness of breath. No headaches. REVIEW OF SYSTEMS: Constitutional: No fever, no chills. Eyes: No discharge. ENT: No sore throat. Cardiovascular: No chest pain, no palpitations. Respiratory: No cough, no shortness of breath. Gastrointestinal: As above. Genitourinary: No hematuria. Musculoskeletal: No back pain. Skin: No rashes. Neurological: No headache. Allergies: Coded Allergies: gluten (Verified Allergy, Mild, 05/04/18) Feels better not eating Gluten methimazole (Verified Allergy, Unknown, Hives/Rash, 05/04/18) Home Meds Reported Medications Pitavastatin Calcium (LIVALO) 4 Mg Tablet, 4 MG PO QDAY 05/04/18 Cyclophosphamide (Cyclophosphamide) 50 Mg Capsule, 50 MG PO QDAY, CAPSULE 01/16/18 Cholecalciferol (Vitamin D3) (VITAMIN D) 1,000 Unit Capsule, 1000 UNIT PO QDAY, CAPSULE DAILY FOR 2 WEEKS A MONTH 01/16/18 Bevacizumab (AVASTIN) 100 Mg/4 Ml Injs, 100 MG IV Q3WK 01/16/18 Past Medical/Surgical History The patient has a past medical and surgical history of colonoscopies, EGD, ovarian cancer with metastasis, chemotherapy, hysterectomy and salpingo- oophorectomy. Knee surgeries. Reviewed Nurses Notes: Yes Smoking Status: Never Smoker Hx Substance Use Disorder: No Hx Alcohol Use: Yes (INFREQUENTLY) Constitutional Vital Sign - Last 24 Hours 05/04/18 05/04/18 05/04/18 05/04/18 10:41 10:46 10:51 10:57 Temp 98.5 Pulse ? 93 Resp 18 B/P (MAP) 79/61 (67) 79/61 Pulse Ox 98 O2 Delivery Room Air 05/04/18 05/04/18 05/04/18 05/04/18 11:00 11:17 11:21 11:26 Pulse 69 63 B/P (MAP) 117/88 (98) 118/89 (99) Pulse Ox 90 97 05/04/18 05/04/18 05/04/18 05/04/18 11:30 11:31 11:36 11:41 Pulse 62 55 53 B/P (MAP) 126/95 (105) Pulse Ox 100 96 94 05/04/18 05/04/18 05/04/18 05/04/18 11:46 11:51 11:56 12:00 Pulse 70 55 58 B/P (MAP) 112/87 (95) Pulse Ox 84 98 93 05/04/18 05/04/18 05/04/18 05/04/18 12:01 12:06 12:11 12:16 Pulse 56 57 58 ??? Pulse Ox 93 89 96 94 05/04/18 05/04/18 05/04/18 05/04/18 12:16 12:21 12:21 12:26 Pulse ? Pulse Ox 94 05/04/18 05/04/18 05/04/18 05/04/18 12:26 12:30 12:30 12:31 Pulse ??? 53 B/P (MAP) 107/69 (82) 107/69 (82) Pulse Ox 90 05/04/18 05/04/18 05/04/18 05/04/18 12:31 12:36 12:36 12:41 Pulse 53 52 52 51 Pulse Ox 90 89 89 98 05/04/18 05/04/18 05/04/18 05/04/18 12:41 12:45 12:45 12:46 Pulse 51 53 B/P (MAP) 106/69 (81) 106/69 (81) Pulse Ox 98 89 05/04/18 05/04/18 05/04/18 05/04/18 12:46 12:51 12:51 12:56 Pulse 53 55 55 50 Pulse Ox 89 91 91 97 O2 Delivery Nasal Cannula O2 Flow Rate 2 05/04/18 05/04/18 05/04/18 05/04/18 13:01 13:06 13:11 13:15 Pulse 49 52 53 B/P (MAP) 99/71 (80) Pulse Ox 97 97 100 05/04/18 05/04/18 05/04/18 05/04/18 13:16 13:21 13:26 13:30 Pulse 52 52 54 B/P (MAP) 105/71 (82) Pulse Ox 98 98 99 05/04/18 05/04/18 05/04/18 05/04/18 13:35 13:40 13:45 13:50 Pulse 49 49 50 51 B/P (MAP) 102/67 (79) Pulse Ox 98 98 98 97 05/04/18 05/04/18 05/04/18 05/04/18 13:55 14:00 14:05 14:10 Pulse 49 58 53 49 B/P (MAP) 102/74 (83) Pulse Ox 98 100 100 99 05/04/18 05/04/18 05/04/18 05/04/18 14:15 14:20 14:25 14:30 Pulse 60 ? B/P (MAP) 106/66 (79) Pulse Ox 100 05/04/18 05/04/18 05/04/18 05/04/18 14:35 14:40 14:45 14:50 Pulse ? B/P (MAP) ???/??? (1665) 05/04/18 05/04/18 05/04/18 05/04/18 14:55 15:00 15:05 15:10 Pulse ??? 54 64 B/P (MAP) 104/61 (75) Pulse Ox 93 91 05/04/18 05/04/18 05/04/18 05/04/18 15:15 15:20 15:25 15:30 Pulse 59 55 55 60 B/P (MAP) 112/73 (86) 113/57 (75) Pulse Ox 90 89 91 90 05/04/18 05/04/18 05/04/18 15:35 15:40 15:45 Pulse 68 67 70 B/P (MAP) 117/64 (81) Pulse Ox 90 91 91 Physical Exam General Appearance: The patient is alert, has no immediate need for airway pr otection and no signs of toxicity, anxious, uncomfortable, difficulty finding a place to sit or stand. Eyes: Pupils equal and round no pallor or injection. ENT, Mouth: Mucous membranes are moist. Respiratory: There are no retractions, lungs are clear to auscultation. Cardiovascular: Regular rate and rhythm, no murmurs, clicks or rubs. Gastrointestinal: Abdomen is flat, soft, periumbilical pain, through bilateral lower quadrants. no masses, Hyperactive bowel sounds. Dull percussion to suprapubic to infraumbilical. Neurological: Alert and oriented 4. Moving all extremities. Following all comma nds. No focal neuro deficits. Skin: Warm and dry, no rashes. Musculoskeletal: Neck is supple non tender. Extremities are nontender, nonswollen and have full range of motion. DIFFERENTIAL DIAGNOSIS: After history and physical exam differential diagnosis was considered for abdominal pain in a female including but not limited to ovarian cyst, pelvic inflammatory disease, bowel obstruction, metastatic disease, ovarian torsion, urinary tract infection, and appendicitis. Medical Decision Making Data Points Result Diagram: 05/04/18 1055 05/04/18 1136 Laboratory Hematology Test 05/04/18 10:55 05/04/18 11:36 Red Blood Count 4.66 M/uL (4.17-5.56) Mean Corpuscular Volume 102.8 fL (80.0-96.0) Mean Corpuscular Hemoglobin 36.2 pg (26.0-33.0) Mean Corpuscular Hemoglobin Concent 35.2 g/dL (32.0-36.0) Red Cell Distribution Width 14.0 % (11.5-14.5) Mean Platelet Volume 6.7 fL (7.2-11.1) Neutrophils (%) (Auto) 80.4 % (39.4-72.5) Lymphocytes (%) (Auto) 12.1 % (17.6-49.6) Monocytes (%) (Auto) 6.6 % (4.1-12.4) Eosinophils (%) (Auto) 0.3 % (0.4-6.7) Basophils (%) (Auto) 0.6 % (0.3-1.4) Nucleated RBC Relative Count (auto) 0.1 /100WBC Neutrophils # (Auto) 3.9 K/uL (2.0-7.4) Lymphocytes # (Auto) 0.6 K/uL (1.3-3.6) Monocytes # (Auto) 0.3 K/uL (0.3-1.0) Eosinophils # (Auto) 0.0 K/uL (0.0-0.5) Basophils # (Auto) 0.0 K/uL (0.0-0.1) Nucleated RBC Absolute Count (auto) 0.00 K/uL Prothrombin Time 12.0 seconds (12.0-14.4) Prothromb Time International Ratio 0.89 Activated Partial Thromboplast Time 25 seconds (23-35) Sodium Level 137 mmol/L (137-145) Potassium Level 4.5 mmol/L (3.5-5.0) Chloride Level 96 mmol/L (98-107) Carbon Dioxide Level 27 mmol/L (22-31) Blood Urea Nitrogen 16 mg/dl (7-18) Creatinine 1.00 mg/dl (0.52-1.04) Glomerular Filtration Rate Calc 57.8 Random Glucose 127 mg/dl (75-110) Calcium Level 10.3 mg/dl (8.4-10.2) Total Bilirubin 1.7 mg/dl (0.2-1.3) Aspartate Amino Transf (AST/SGOT) 50 U/L (0-35) Alanine Aminotransferase (ALT/SGPT) 57 U/L (0-56) Alkaline Phosphatase 114 U/L (0-126) Total Protein 8.5 g/dl (6.3-8.2) Albumin 4.7 g/dl (3.5-5.0) Lipase 127 U/L (23-300) Chemistry Test 05/04/18 10:55 05/04/18 11:36 White Blood Count 4.8 k/uL (4.5-11.0) Red Blood Count 4.66 M/uL (4.17-5.56) Hemoglobin 16.9 g/dL (12.0-16.0) Hematocrit 47.9 % (34.0-47.0) Mean Corpuscular Volume 102.8 fL (80.0-96.0) Mean Corpuscular Hemoglobin 36.2 pg (26.0-33.0) Mean Corpuscular Hemoglobin Concent 35.2 g/dL (32.0-36.0) Red Cell Distribution Width 14.0 % (11.5-14.5) Platelet Count 340 K/uL (150-450) Mean Platelet Volume 6.7 fL (7.2-11.1) Neutrophils (%) (Auto) 80.4 % (39.4-72.5) Lymphocytes (%) (Auto) 12.1 % (17.6-49.6) Monocytes (%) (Auto) 6.6 % (4.1-12.4) Eosinophils (%) (Auto) 0.3 % (0.4-6.7) Basophils (%) (Auto) 0.6 % (0.3-1.4) Nucleated RBC Relative Count (auto) 0.1 /100WBC Neutrophils # (Auto) 3.9 K/uL (2.0-7.4) Lymphocytes # (Auto) 0.6 K/uL (1.3-3.6) Monocytes # (Auto) 0.3 K/uL (0.3-1.0) Eosinophils # (Auto) 0.0 K/uL (0.0-0.5) Basophils # (Auto) 0.0 K/uL (0.0-0.1) Nucleated RBC Absolute Count (auto) 0.00 K/uL Prothrombin Time 12.0 seconds (12.0-14.4) Prothromb Time International Ratio 0.89 Activated Partial Thromboplast Time 25 seconds (23-35) Glomerular Filtration Rate Calc 57.8 Calcium Level 10.3 mg/dl (8.4-10.2) Total Bilirubin 1.7 mg/dl (0.2-1.3) Aspartate Amino Transf (AST/SGOT) 50 U/L (0-35) Alanine Aminotransferase (ALT/SGPT) 57 U/L (0-56) Alkaline Phosphatase 114 U/L (0-126) Total Protein 8.5 g/dl (6.3-8.2) Albumin 4.7 g/dl (3.5-5.0) Lipase 127 U/L (23-300) Coagulation Test 05/04/18 11:36 Prothrombin Time 12.0 seconds Prothromb Time International Ratio 0.89 Activated Partial Thromboplast Time 25 seconds EKG/Imaging Imaging Location: [facility] - [place], [place] Patient: Laverne Mcadams : 1965 Visit/Account:[id number] Date of Sevice: 05/04/2018 Exam: KUB SINGLE VIEW ABDOMEN Indication: eval for obst, RAD Comparison: 01/16/2018 Findings: Within the left mid abdomen there is a group of dilated loops of small bowel measuring upwards of 4.5 cm. There is a relative possibility of bowel gas seen throughout the remainder of the abdomen. Hemidiaphragms not included on this examination but no secondary signs of pneumoperitoneum are identified. No abnormal masses or calcifications are identified. IMPRESSION: 1. Findings are consistent with small bowel obstruction versus high-grade partial small bowel obstruction. Results were discussed with NORI MADRIGAL at 05/04/2018 12:06 PM. Report Dictated By: Kareem Neumann at 05/04/2018 12:02 PM Report E-Signed By: Kareem Neumann at 05/04/2018 12:06 PM [id number] PROCEDURE: Multiplanar contrast enhanced CT of the abdomen and pelvis with 75 mL intravenous Isovue 370. One of the following dose optimization techniques was utilized in the performance of this exam: Automated exposure control; adjustment of the mA and/or kV according to the patient's size; or use of an iterative reconstruction technique. Specific details can be referenced in the facility's radiology CT exam operational policy. FINDINGS: Visualized thorax: No acute findings. Liver: Scattered subcentimeter hypodensities are indeterminant but unchanged. Gallbladder and biliary system: Cholecystectomy. No bile duct dilation. Spleen: Negative. Pancreas: Negative. Adrenal glands: Negative. Kidneys and bladder: No renal mass or evidence of an obstructive uropathy. Urinary bladder is unremarkable. Vessels: Aorta, portal venous system, and IVC are unremarkable. Major mesenteric vessels are unremarkable. Bowel and mesentery: Similar to the prior studies the proximal and mid small bowel is dilated and fluid-filled with small bowel loops measuring up to 3.2 cm. Also similar to the prior studies is an irregular cluster of distal small bowel in the right lower quadrant which appears to be the transition point for the obstruction. 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 No definite underlying mass lesion is identified although given the history, otherwise occult peritoneal metastatic disease cannot be excluded. The small bowel loops in the right lower quadrant are mildly hyperemic potentially do to venous congestion as there does appear to be extrinsic compression of some of the more distal mesenteric veins. No definite evidence of ischemia is otherwise identified. The colon is relatively decompressed. Pelvic organs: Hysterectomy. No adnexal mass. Lymph nodes: No new or enlarging abdominopelvic lymph nodes. Free air/free fluid: Small amount of simple appearing free fluid in the pelvis. No organized fluid collection. No pneumoperitoneum. Abdominal wall and osseous structures: Abdominal wall is intact. Osseous structures are within normal limits. IMPRESSION: 1. Distal small bowel obstruction which as further described above appears mo rphologically similar to the prior studies. There is a small amount of nonspecific free fluid but no other definite evidence of bowel ischemia at this time. Continued clinical observation with surgical consultation as clinically indicated is recommended. 2. No definite CT findings of metastatic disease. Results were discussed with NORI MADRIGAL at 05/04/2018 1:46 PM. Report Dictated By: Kee Shepard MD at 05/04/2018 12:42 PM Report E-Signed By: Kee Shepard MD at 05/04/2018 1:54 PM WSN:[id number] ED Course/Re-evaluation Clinical Indication for ER IV: Hydration, IV Access ED Course The patient was admitted to a room. A history and physical were obtained. Differential diagnoses were considered. An IV was started. A CBC, CMP were obtained. Patient was given a 1 L normal saline bolus. 6.25 mg IV Phenergan, 4 mg IV morphine. CBC showing H&H 16.9 and 47.9. MCV 102.8, MCH 36.2, platelets 340, calcium 10.3, total bilirubin 1.7, AST 50, ALT 57. KUB showing findings consistent with small bowel obstruction versus high-grade partial small bowel obstruction. I did review the radiology results of the laboratory studies with the patient, I suggested a CT of the abdomen pelvis CT of the abdomen and pelvis showing distal small bowel obstruction. I reviewed the CT results with the patient. I spoke with Dr. Ramirez the surgeon on-call, he's excepted patient on to the medical floor for a small bowel obstruction. Patient is requesting to hold off on the NG tube for at least the next couple of hours, see if she can pr oduce some flatness, Dr. Ramirez is in agreement with this. Patient states that she's had significant relief from her pain, feels that things are starting to move however she still unable to produce gas while in the ER. Patient was admitted to the medical floor, patient had no other concerns or questions at the time of admission. 05/04/2018 12:14:20 pm radiology called with the KUB results, consistent with partial or complete bowel obstruction. Recommendation was a CT abdomen and pel vis, I did review these results with the patient, did recommend a CT of the abdomen and pelvis, she is in agreement with this plan of care. Patient was resting on her right side eyes closed respirations regular, appears to be pain- free at the moment. Patient did wake to voice. Denies pain at this time. 05/04/2018 2:37:25 pm I did review the CT results with the patient, did tell her that I would contact the general surgeon to discuss the case. Patient was in agreement with this. 05/04/2018 3:12:[address] with Dr. Ramirez regarding the patient's case, he is willing to accept the patient for a bowel obstruction. I did tell him I would talk to the patient and then update him on her status. 05/04/2018 3:16:[address] Ramirez has accepted the patient for a small bowel obstruction, patient is requesting to hold off on NG tube for at least 2 hours, Dr. Ramirez is agreeable. Decision to Disposition Date: May 04, 2018 Decision to Disposition Time: 15:16 Depart Departure Latest Vital Signs Vital Signs Date Time Temp Pulse Resp B/P (MAP) Pulse Ox O2 Delivery O2 Flow Rate FiO2 05/04/18 15:45 70 117/64 (81) 91 05/04/18 12:56 Nasal Cannula 2 05/04/18 10:57 98.5 18 Impression: Primary Impression: Small bowel obstruction Condition: Improved Disposition: Admitted from ER Referrals: JOSÉ PÉREZ MD (PCP) NORI MADRIGAL SEAMLESS [employer] May 04, 2018 10:54
[2018-05-04] MEDS ORDERED: NS(*) 0.9% 1000 ML BAG 1,000 ML IV ONE (11:00)
[2018-05-04] MEDS ORDERED: MORPHINE 4 MG/ML SDV IVP ONE (11:00)
[2018-05-04] MEDS ORDERED: PROMETHAZINE 25 MG/ML 1 ML AMP IVP ONE (11:00)
[2018-05-04 11:07] LABS: PLATELET COUNT, AUTOMATED 340 K/uL (150-450)
[2018-05-04] MEDS ORDERED: IOPAMIDOL 76% 75 ML INFUS BTL 0 ML ONE (11:24)
--- NOTE | 2018-05-04 12:10 | RADIOLOGY IMAGING REPORT ---
FACILITY: [facility] PATIENT NAME: Laverne Mcadams : 1965 MR: [id number] V: [id number] EXAM DATE: ORDERING PHYSICIAN: NORI MADRIGAL TECHNOLOGIST: Location: [facility] Patient: Laverne Mcadams : 1965 Visit/Account:[id number] Date of Sevice: 05/04/2018 Exam: KUB SINGLE VIEW ABDOMEN Indication: eval for obst, RAD Comparison: 01/16/2018 Findings: Within the left mid abdomen there is a group of dilated loops of small bowel measuring upwa rds of 4.5 cm. There is a relative possibility of bowel gas seen throughout the remainder of the abdo men. Hemidiaphragms not included on this examination but no secondary signs of pneumoperitoneum are i dentified. No abnormal masses or calcifications are identified. IMPRESSION: 1. Findings are consistent with small bowel obstruction versus high-grade partial small bowel obstru ction. Results were discussed with NORI MADRIGAL at 05/04/2018 12:06 PM. Report Dictated By: Kareem Neumann at 05/04/2018 12:02 PM Report E-Signed By: Kareem Neumann at 05/04/2018 12:06 PM WSN:[id number]
[2018-05-04] MEDS ORDERED: IOPAMIDOL 76% 75 ML INFUS BTL 75 ML ONE (12:23)
--- NOTE | 2018-05-04 13:58 | RADIOLOGY IMAGING REPORT ---
FACILITY: [facility] - [place] PATIENT NAME: Laverne Mcadams : 1965 MR: [id number] V: [id number] EXAM DATE: ORDERING PHYSICIAN: NORI MADRIGAL TECHNOLOGIST: Location: [facility] [place] Patient: Laverne Mcadams : 1965 Visit/Account:[id number] Date of Sevice: 05/04/2018 EXAMINATION: CT abdomen and pelvis with contrast COMPARISON: 01/16/2018 and earlier. HISTORY: Abdominal pain. Evaluate for obstruction. History of ovarian cancer. PROCEDURE: Multiplanar contrast enhanced CT of the abdomen and pelvis with 75 mL intravenous Isovue 3 70. One of the following dose optimization techniques was utilized in the performance of this exam: A utomated exposure control; adjustment of the mA and/or kV according to the patient's size; or use of an iterative reconstruction technique. Specific details can be referenced in the facility's radiolo gy CT exam operational policy. FINDINGS: Visualized thorax: No acute findings. Liver: Scattered subcentimeter hypodensities are indeterminant but unchanged. Gallbladder and biliary system: Cholecystectomy. No bile duct dilation. Spleen: Negative. Pancreas: Negative. Adrenal glands: Negative. Kidneys and bladder: No renal mass or evidence of an obstructive uropathy. Urinary bladder is unrema rkable. Vessels: Aorta, portal venous system, and IVC are unremarkable. Major mesenteric vessels are unremark able. Bowel and mesentery: Similar to the prior studies the proximal and mid small bowel is dilated and flu id-filled with small bowel loops measuring up to 3.2 cm. Also similar to the prior studies is an irre gular cluster of distal small bowel in the right lower quadrant which appears to be the transition po int for the obstruction. Although not typical for an internal hernia or volvulus, the appearance is s uggestive of at least partial malrotation of the distal small bowel potentially around a right lower quadrant adhesion. No definite underlying mass lesion is identified although given the history, other lozano occult peritoneal metastatic disease cannot be excluded. The small bowel loops in the right lowe r quadrant are mildly hyperemic potentially do to venous congestion as there does appear to be extrin sic compression of some of the more distal mesenteric veins. No definite evidence of ischemia is othe rwise identified. The colon is relatively decompressed. Pelvic organs: Hysterectomy. No adnexal mass. Lymph nodes: No new or enlarging abdominopelvic lymph nodes. Free air/free fluid: Small amount of simple appearing free fluid in the pelvis. No organized fluid co llection. No pneumoperitoneum. Abdominal wall and osseous structures: Abdominal wall is intact. Osseous structures are within normal limits. IMPRESSION: 1. Distal small bowel obstruction which as further described above appears morphologically similar to the prior studies. There is a small amount of nonspecific free fluid but no other definite evidence of bowel ischemia at this time. Continued clinical observation with surgical consultation as clinical ly indicated is recommended. 2. No definite CT findings of metastatic disease. Results were discussed with NORI MADRIGAL at 05/04/2018 1:46 PM. Report Dictated By: Kee Shepard MD at 05/04/2018 12:42 PM Report E-Signed By: Kee Shepard MD at 05/04/2018 1:54 PM WSN:[id number]
[2018-05-04 14:37] LABS: INR 0.89
[2018-05-04 16:33] VITALS: BP 118/78
[2018-05-04] MEDS ORDERED: ACETAMINOPHEN 325 MG TAB PO PRN (16:35)
[2018-05-04] MEDS ORDERED: LR(*) 1000 ML BAG 1,000 ML IV PRN ×2 (16:35→16:50)
[2018-05-04] MEDS ORDERED: PROMETHAZINE 25 MG/ML 1 ML AMP IVP PRN (16:35)
[2018-05-04] MEDS ORDERED: ONDANSETRON 4 MG/2 ML VIAL IVP PRN (16:35)
[2018-05-04] MEDS ORDERED: MORPHINE 2 MG/ML SYR IVP PRN (16:35)
[2018-05-04] MEDS: KCL/D1/2NS 20 MEQ 1000 ML 1,000 ML IV PRN (17:00)
--- NOTE | 2018-05-04 17:21 | Gen Surgery History & Physical ---
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 First Dx made in December 2014. Underwent debulking procedure with KALEB, BSO, Omentectomy, Partial liver resection at [facility] by Clerical Support Specialist Onc. Dx as Stage IIIC Treated with several rounds of chemotherapy. In Spring 2016 Underwent liver mass resection (2 out of three resected masses + for same ovarian tumor). Additional chemo. Had recurrent SBO sxs and a rise in CA-125 (20-30) until Aug 2017 when switched to Avastin and high dose lipid statin. Since that time has done better but with occasional SBO (October, December, January) Aug CA-125 down to 7.5 Sunday week was last dosed with Avastin, and CA-125 was 8.5 Over past 2 days developed recurrent SBO sxs, with abd pain, progressively worse overnight with emesis. Today had small BM and flatus but sxs still persistent. Would like to avoid NG tube- last time an NG was placed it took one month for nasal passage to heal (due to Avastin) Bolus one liter in ED and IV Morphine with improvement in Sxs. H/H suggestive of hemoconcentration Has Gilbert's with mild bili elevation. 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 [place] Tob- None Chew- None ETOH- 1-2 month FHX: Mother alive, healthy age 85 Father, alive, healthy age 88 Sisters x 2, Graves Dz and MS Brothers x 7, Celiac Dx x 4/neurologic dz History Home Meds Reported Medications Pitavastatin Calcium (LIVALO) 4 Mg Tablet, 4 MG PO QDAY 05/04/18 Cyclophosphamide (Cyclophosphamide) 50 Mg Capsule, 50 MG PO QDAY, CAPSULE 6/6/18 Cholecalciferol (Vitamin D3) (VITAMIN D) 1,000 Unit Capsule, 1000 UNIT PO QDAY, CAPSULE DAILY FOR 2 WEEKS A MONTH 01/16/18 Bevacizumab (AVASTIN) 100 Mg/4 Ml Injs, 100 MG IV Q3WK 01/16/18 Allergies: Coded Allergies: gluten (Verified Allergy, Mild, 05/04/18) Feels better not eating Gluten methimazole (Verified Allergy, Unknown, Hives/Rash, 05/04/18) Patient History: FH: COPD (chronic obstructive pulmonary disease) FATHER FH: Gilbert's disease FATHER FH: arthritis FATHER FH: celiac disease FH: hypothyroidism CHILD CHILD FH: multiple sclerosis BROTHER OR SISTER BROTHER OR SISTER FH: osteoporosis MOTHER BROTHER OR SISTER Graves' disease Review of Systems Constitutional: No Fever, No Weight Loss, No Weight Gain, No Chills, No Night Sweats Neurological: Weakness; No Syncope, No Confusion, No Dizziness, No Slurred Speech Eyes: No Vision Change, No Loss of Vision, No Photophobia ENT: No Hearing Loss, No Sinus Congestion Cardiovascular: No Chest Pain, No Palpitations, No Orthostatic Hypotension Respiratory: No Shortness of Breath, No Cough, No Wheezing Gastrointestinal: Nausea, Vomiting; No Diarrhea, No Dysphagia, No Constipation, No Early Satiety, No Hematemesis, No Hematochezia, No Melena; Abdominal Pain, Other (Loss of appetite) Genitourinary: No Dysuria, No Hematuria, No Urinary Incontinence Musculoskeletal: No Pain, No Sprain, No Strain, No Impaired Mobility Psychiatric: No Depression, No Anxiety Exam General Appearance: Alert, Awake, No Acute Distress, Afebrile, Other (VS Normal) Neuro: No Gross deficits Eyes: PERRLA, Other (EOMI) ENT: Normal, Moist Mucous Membranes Neck: No Masses Cardiovascular: Normal Rhythm & Peripheral Pulses, Regular Rate and Rhythm, No Edema, No JVD Respiratory: No Respiratory Distress, Clear to Auscultation GI: Abd Soft and Non-Tender, Other (No hernia; Active Bowel Sounds/ Not high pitched; WHSS in midline and RUQ) Musculoskeletal: No Weakness/Pain, Other (Nomal ambulation and gait) Extremities: Soft and Non Tender, Warm, Pulses, Perfused; No Edema Integumentary: Skin Intact without Lesion / Mass; No Generalized Fragile Skin, No Scaly / Dry Skin, No Jaundice, No Pallor, No Cyanosis Psych: Alert & Oriented X3, Appropriate Mood & Affect Medical Decision Making Data Points Result Diagram: 05/05/18 0547 05/05/18 0547 EKG / Imaging Monitor Interpretation: Normal Sinus Rhythm Imaging CT scan with IV contrast: Liver: Scattered subcentimeter hypodensities are indeterminant but unchanged. Gallbladder and biliary system: Cholecystectomy. No bile duct dilation. Spleen: Negative. Pancreas: Negative. Adrenal glands: Negative. Kidneys and bladder: No renal mass or evidence of an obstructive uropathy. Urinary bladder is unremarkable. Vessels: Aorta, portal venous system, and IVC are unremarkable. Major mesenteric vessels are unremarkable. Bowel and mesentery: Similar to the prior studies the proximal and mid small bowel is dilated and fluid-filled with small bowel loops measuring up to 3.2 cm. Also similar to the prior studies is an irregular cluster of distal small bowel in the right lower quadrant which appears to be the transition point for the obstruction. 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 No definite underlying mass lesion is identified although given the history, otherwise occult peritoneal metastatic disease cannot be excluded. The small bowel loops in the right lower quadrant are mildly hyperemic potentially do to venous congestion as there does appear to be extrinsic compression of some of the more distal mesenteric veins. No definite evidence of ischemia is otherwise identified. The colon is relatively decompressed. Pelvic organs: Hysterectomy. No adnexal mass. Lymph nodes: No new or enlarging abdominopelvic lymph nodes. Pre-Admit Course ED Medications Morphine 4 mg Medical Record Review: Yes Assessment and Plan Problems: (1) Hyperlipidemia Status: Chronic Assessment & Plan: Daily statin (2) Dehydration Status: Acute Assessment & Plan: 05/04/18: Hemoconcentrated; LR Bolus x 2 liters; IV Hydration (3) Recurrent carcinoma of ovary Status: Chronic Assessment & Plan: 05/04/18: Cyclophosphamide 50 PO Daily; Last Avastin 5 days ago (4) Small bowel obstruction Status: Acute Assessment & Plan: 05/04/18: CT scan similar to January 2018 with Fecalization of the SB present; small ascites; no ischemia, No mesenteric edema Will hold on NG per pts desire; IVF and bowel rest (5) Liver dysfunction Status: Chronic Assessment & Plan: 05/04/18: Mild elevation in AST/ALT 50/57 and T Bili 1.7, Nl INR, similar over past several months per pt; Monitor Time Spent: > 30 min Venous Thromboembolism VTE Risk Physician Assess for VTE Risk: Yes Patient's VTE Risk: High VTE Diagnostic Test 2 Days Prior to Admit: No Antithrombotics Is Pt On Any Antithrombotics?: Yes Problem Qualifiers (1) Hyperlipidemia: Hyperlipidemia type: unspecified Qualified Codes: E78.5 - Hyperlipidemia, unspecified (2) Recurrent carcinoma of ovary: Laterality: unspecified laterality Qualified Codes: C56.9 - Malignant neoplasm of unspecified ovary GABY DANIEL MD May 04, 2018 17:21
[2018-05-04 19:54] VITALS: BP 115/73
[2018-05-04 23:40] VITALS: BP 109/61
[2018-05-05] MEDS: KCL/D1/2NS 20 MEQ 1000 ML 1,000 ML IV PRN (01:55)
[2018-05-05 05:22] VITALS: BP 104/74
[2018-05-05 06:01] LABS: PLATELET COUNT, AUTOMATED 245 K/uL (150-450)
[2018-05-05 07:30] VITALS: BP 117/80
--- NOTE | 2018-05-05 08:28 | General Surgery Progress Note ---
Subjective Progress Notes Subjective Ambulated; + Flatus; Slept well; Minimal abdominal pain; + BM Patient Complains of: Neurological: No: Syncope, Confusion, Weakness Cardiovascular: No: Chest Pain, Palpitations, Orthostatic Hypotension Respiratory: No: Cough, Congestion, Shortness of Breath, Wheezing Gastrointestinal: Flatus; No Nausea, No Vomiting Genitourinary: No Dysuria, No Hematuria, No Urinary Incontinence Musculoskeletal: No: Pain, Sprain, Strain, Impaired Mobility Physical Exam Vital Signs Date Time Temp Pulse Resp B/P (MAP) Pulse Ox O2 Delivery O2 Flow Rate FiO2 05/05/18 07:53 94 Room Air 05/05/18 07:30 98.1 49 16 117/80 (92) 05/04/18 12:56 2 Intake and Output 05/05/18 07:00 Intake Total 2157 ml Balance 2157 ml Intake Oral 180 ml IV Total 1977 ml # Voids 4 # Bowel Movements 2 General Appearance: Alert, Awake, No Acute Distress, Afebrile Neuro: No Gross deficits Eyes: PERRLA, Other (EOMI) ENT: Normal, Moist Mucous Membranes Cardiovascular: Normal Rhythm & Peripheral Pulses, Regular Rate and Rhythm, No Edema Respiratory: No Respiratory Distress, Clear to Auscultation GI: Soft and Non-Tender, Other (Active Bowel Sounds; No Hernia) Musculoskeletal: No Weakness/Pain Extremities: Soft and Non Tender, Warm, Pulses, Perfused; No Edema Integumentary: Skin Intact without Lesion / Mass Psych: Alert & Oriented X3, Appropriate Mood & Affect Result Diagram: 05/05/18 0547 05/05/18 0547 Monitor Interpretation: Normal Sinus Rhythm Assessment and Plan Problems: (1) Hyperlipidemia Status: Chronic Assessment & Plan: Daily statin- used primarily for cancer tx adjunct (2) Dehydration Status: Acute Assessment & Plan: 05/04/18: Hemoconcentrated; LR Bolus x 2 liters; IV Hydration 05/05/18: Improved- Hgb improved to 14.2; Creatinine decreased to 0.8 (From 1.0); good UO (3) Recurrent carcinoma of ovary Status: Chronic Assessment & Plan: 05/04/18: Cyclophosphamide 50 PO Daily; Last Avastin 5 days ago 05/05/18: WBC decreased to 2.7 but this is more of her baseline (4) Small bowel obstruction Status: Acute Assessment & Plan: 05/04/18: CT scan similar to January 2018 with Fecalization of the SB present; small ascites; no ischemia, No mesenteric edema Will hold on NG per pts desire; IVF and bowel rest (Images of CT scan reviewed with Radiologist) 05/05/18: Sxs resolved; Pain minimal; + flatus and small BM; Advance diet to full liquids; Will attempt to set pt up for Special population Nursing to allow for Floor treatment with IVF Bolus/IV Tylenol vs Toradol, Zofran. Will D/C home per pts desire today if full liquids tolerated (5) Liver dysfunction Status: Chronic Assessment & Plan: 05/04/18: Mild elevation in AST/ALT 50/57 and T Bili 1.7, Nl INR, similar over past several months per pt; Monitor 05/05/18: T Bili decreased to 1.6, Pt with Gilbert's Condition Improved. Will D/C to home if tolerated Full liquids. Pt feels this is in her best interest Time Spent: > 30 min Exam Sepsis Risk: No Definite Risk Problem Qualifiers (1) Hyperlipidemia: Hyperlipidemia type: unspecified Qualified Codes: E78.5 - Hyperlipidemia, unspecified (2) Recurrent carcinoma of ovary: Laterality: unspecified laterality Qualified Codes: C56.9 - Malignant neoplasm of unspecified ovary GABY DANIEL MD May 05, 2018 08:27
[2018-05-05] MEDS ORDERED: ONDA4TAB PO (08:31)
[2018-05-05] MEDS ORDERED: CYCLOPHOSPHAMIDE 50 MG CAPSULE PO SCH (09:00)
[2018-05-05] MEDS ORDERED: ENOXAPARIN 30 MG/0.3 ML SYR SC SCH (09:00)
--- NOTE | 2018-05-05 09:00 | Short(Outpt) Discharge Summary ---
Discharge Summary Reason for Hosp/Final Diag: (1) Hyperlipidemia Status: Chronic Hospital Course & Plan: Daily statin- used primarily for cancer tx adjunct (2) Dehydration Status: Acute Hospital Course & Plan: 05/04/18: Hemoconcentrated; LR Bolus x 2 liters; IV Hydration 05/05/18: Improved- Hgb improved to 14.2; Creatinine decreased to 0.8 (From 1.0); good UO (3) Recurrent carcinoma of ovary Status: Chronic Hospital Course & Plan: 05/04/18: Cyclophosphamide 50 PO Daily; Last Avastin 5 days ago 05/05/18: WBC decreased to 2.7 but this is more of her baseline (4) Small bowel obstruction Status: Acute Hospital Course & Plan: 05/04/18: CT scan similar to January 2018 with Fecalization of the SB present; small ascites; no ischemia, No mesenteric edema Will hold on NG per pts desire; IVF and bowel rest (Images of CT scan reviewed with Radiologist) 05/05/18: Sxs resolved; Pain minimal; + flatus and small BM; Advance diet to full liquids; Will attempt to set pt up for Special population Nursing to allow for Floor treatment with IVF Bolus/IV Tylenol vs Toradol, Zofran. Will D/C home per pts desire today if full liquids tolerated (5) Liver dysfunction Status: Chronic Hospital Course & Plan: 05/04/18: Mild elevation in AST/ALT 50/57 and T Bili 1.7, Nl INR, similar over past several months per pt; Monitor 05/05/18: T Bili decreased to 1.6, Pt with Gilbert's Departure Discharge to: Home Discharge Instructions Home Meds Active Scripts Ondansetron (ZOFRAN ODT) 4 Mg Tab.rapdis, 4 MG PO Q6-8H PRN for NAUSEA, #30 TAB.BRIDGET Prov:GABY DANIEL MD 05/05/18 Reported Medications Pitavastatin Calcium (LIVALO) 4 Mg Tablet, 4 MG PO QDAY 05/04/18 Cyclophosphamide (Cyclophosphamide) 50 Mg Capsule, 50 MG PO QDAY, CAPSULE 01/16/18 Cholecalciferol (Vitamin D3) (VITAMIN D) 1,000 Unit Capsule, 1000 UNIT PO QDAY, CAPSULE DAILY FOR 2 WEEKS A MONTH 01/16/18 Bevacizumab (AVASTIN) 100 Mg/4 Ml Injs, 100 MG IV Q3WK 6/6/18 Diet: Gluten Free (Full Liquids) Activity: As Tolerated Special Instructions: Call Cancer Center to speak with Special Population nurses about a PRN need for managing her partial small bowel Problem Qualifiers (1) Hyperlipidemia: Hyperlipidemia type: unspecified Qualified Codes: E78.5 - Hyperlipidemia, unspecified (2) Recurrent carcinoma of ovary: Laterality: unspecified laterality Qualified Codes: C56.9 - Malignant neoplasm of unspecified ovary GABY DANIEL MD May 05, 2018 09:00
== END 2018-05-05 10:20 | disposition home or self-care (01) ==
LOC: ER 10:58 → INTOOBSV 15:45 → MED 15:45
PROVIDERS: ADMIT Surgery; ATTEND Surgery
DX: K56.609 Unspecified intestinal obstruction, unspecified as to partial versus complete obstruction (principal); E86.0 Dehydration; E78.5 Hyperlipidemia, unspecified; K76.89 Other specified diseases of liver
CPT/HCPCS: 36415; 74018; 74177; 83690; 83735; 85025; 85610; 85730; 96361; 96372; 96374; 96375; 99284; G0378; J1650; J2270; J2550; J3480; J7030; Q9967; 82040; 82247; 82310; 82374; 82435; 82565; 82947; 84075; 84132; 84155; 84295; 84450; 84460; 84520

== ENCOUNTER 2018-07-17 00:42 | Emergency (ER) | payer OTHER ==
[~2018-07-17 00:42] MED LIST changes: +ONDA4TAB PO; +PITA4TAB PO
--- NOTE | 2018-07-17 01:00 | ER Report ---
History and Physical Time Seen By MD: 01:01 Hx. of Stated Complaint: abdominal pain starting 1-1/2 hours [employer]. Hx of SBO. HPI/ROS CHIEF COMPLAINT: abdominal pain HISTORY OF PRESENT ILLNESS: This is a 53 year old female. She is having periumbilical abdominal pain. Feels like a large gas bubble in the central abdomen. Has a history of prior bowel obstructions, but they improve with time and pain/nausea management. She feels the same tonight. Started this evening. Had a normal bowel movement tonight. No cough or shortness of breath. No chest pain. Normal urination. Allergies: Coded Allergies: gluten (Verified Allergy, Mild, 07/17/18) Feels better not eating Gluten methimazole (Verified Allergy, Unknown, Hives/Rash, 07/17/18) Home Meds Active Scripts Ondansetron (ZOFRAN ODT) 4 Mg Tab.rapdis, 4 MG PO Q6-8H PRN for NAUSEA, #30 TAB.BRIDGET Prov:GABY DANIEL MD 05/05/18 Reported Medications Pitavastatin Calcium (LIVALO) 4 Mg Tablet, 4 MG PO QDAY 05/04/18 Cyclophosphamide (Cyclophosphamide) 50 Mg Capsule, 50 MG PO QDAY, CAPSULE 01/16/18 Cholecalciferol (Vitamin D3) (VITAMIN D) 1,000 Unit Capsule, 1000 UNIT PO QDAY, CAPSULE DAILY FOR 2 WEEKS A MONTH 01/16/18 Bevacizumab (AVASTIN) 100 Mg/4 Ml Injs, 100 MG IV Q3WK 01/16/18 Reviewed Nurses Notes: Yes Smoking Status: Never Smoker Hx Substance Use Disorder: No Hx Alcohol Use: Yes (INFREQUENTLY) Constitutional Vital Sign - Last 24 Hours 07/17/18 07/17/18 07/17/18 07/17/18 00:42 00:48 00:51 00:53 Temp 98.7 Pulse ??? 61 Resp 14 B/P (MAP) 141/92 118/100 (106) 141/92 (108) Pulse Ox 92 O2 Delivery Room Air 07/17/18 07/17/18 07/17/18 07/17/18 00:57 01:00 01:12 01:20 Pulse 54 57 B/P (MAP) 148/95 (112) Pulse Ox 91 93 O2 Flow Rate 2.0 12/5/18 07/17/18 07/17/18 07/17/18 01:42 01:57 02:02 02:17 Pulse 57 46 B/P (MAP) 129/83 (98) Pulse Ox 97 99 O2 Delivery Nasal Cannula Nasal Cannula O2 Flow Rate 2 2 Intake and Output 07/16/18 07/16/18 07/17/18 14:58 22:58 06:58 Intake Total 1000 ml Balance 1000 ml Physical Exam General Appearance: Alert, no acute distress. Respiratory: Chest is non tender, lungs are clear to auscultation. Cardiac: regular rate and rhythm Gastrointestinal: Abdomen is soft, with some firmness in central abdomen. Hyp eractive bowel sounds. Tender over araseli-umbilical area. Skin: No rashes or lesions. DIFFERENTIAL DIAGNOSIS: After history and physical exam differential diagnosis was considered for abdominal pain with concern for possible obstruction versus gas pains. Medical Decision Making ED Course/Re-evaluation Clinical Indication for ER IV: IV Access ED Course Discussed with the patient. She would like to try and be more conservative tonight. We gave Phenergan, Morphine and a liter or normal saline. She is feeling better. Abdominal 3 view with question of a dilated loop of small bowel. Patient feels better and would like to return home and see if this improves. She understands there may be an early obstruction and will return if not feeling better. Decision to Disposition Date: Jul 17, 2018 Decision to Disposition Time: 02:01 Depart Departure Latest Vital Signs Vital Signs Date Time Temp Pulse Resp B/P (MAP) Pulse Ox O2 Delivery O2 Flow Rate FiO2 07/17/18 02:17 99 Nasal Cannula 2 07/17/18 02:02 46 07/17/18 01:42 129/83 (98) 07/17/18 00:48 98.7 14 Impression: Primary Impression: Abdominal pain Condition: Improved Disposition: HOME OR SELF-CARE Referrals: JOSÉ PÉREZ MD (PCP) Patient Instructions: Acute Abdominal Pain (ED) Additional Instructions: Rest and increase fluids and activity as discussed. Return if needed for worsening pain or nausea/vomiting or fevers/chills. Problem Qualifiers Primary Impression: Abdominal pain Abdominal location: periumbilical Qualified Codes: R10.33 - Periumbilical pain DEX JENNINGS MD Jul 17, 2018 01:00
[2018-07-17] MEDS ORDERED: PROMETHAZINE 25 MG/ML 1 ML AMP IVP ONE (01:05)
[2018-07-17] MEDS ORDERED: NS(*) 0.9% 1000 ML BAG 1,000 ML IV ONE (01:05)
[2018-07-17] MEDS ORDERED: MORPHINE 4 MG/ML SDV IVP ONE (01:05)
[2018-07-17 01:42] VITALS: BP 129/83
--- NOTE | 2018-07-17 02:11 | RADIOLOGY IMAGING REPORT ---
FACILITY: [facility] [place] PATIENT NAME: Laverne Mcadams : 1965 MR: [id number] V: [id number] EXAM DATE: ORDERING PHYSICIAN: DEX JENNINGS TECHNOLOGIST: Location: [facility] Patient: Laverne Mcadams : 1965 Visit/Account:[id number] Date of Sevice: 07/17/2018 ACUTE ABDOMEN SERIES 3 VIEW HISTORY: Lower abdominal pain. History of ovarian cancer. COMPARISON: 05/04/2018 and studies dating to 06/26/2017. TECHNIQUE: PA upright view of the chest, AP supine and AP upright views of the abdomen. Chest: The lungs are clear. The cardiac and mediastinal silhouettes are within normal limits. Bones a nd soft tissues are unremarkable. Abdomen: The distribution of bowel gas is normal, with bowel in all four quadrants as well as central ly. No free air. There is an air-fluid level within a mildly dilated loop of small bowel in the mid t o lower abdomen. There is mild to moderate stool in colon. There are numerous pelvic phleboliths. No acute osseous abnormality. IMPRESSION: 1. No acute cardiopulmonary process. 2. There is a dilated small bowel loop in the midline mid to lower abdomen with an air-fluid level. F indings are concerning for small bowel obstruction. These findings were discussed by phone with DEX JENNINGS on 07/17/2018 2:07 AM. Report Dictated By: Anum Lazar at 07/17/2018 2:03 AM Report E-Signed By: Anum Lazar at 07/17/2018 2:07 AM WSN:[id number]
[2018-07-18] MEDS ORDERED: IBUP400T13 PO (16:10)
== END 2018-07-17 02:33 | disposition home or self-care (01) ==
LOC: ER 01:19 → CANBEDREQ 02:33 → ER 02:33
DX: R10.33 Periumbilical pain (principal)
CPT/HCPCS: 74022; 96361; 96374; 96375; 99284; J2270; J2550; J7030

== ENCOUNTER 2018-07-17 05:08 | Observation (INO) | payer OTHER ==
[~2018-07-17] VITALS: Ht 162.6 cm; Wt 55.8 kg
[2018-07-17] MEDS ORDERED: NS(*) 0.9% 1000 ML BAG 1,000 ML IV ONE (05:10)
[2018-07-17] MEDS ORDERED: ONDANSETRON 4 MG/2 ML VIAL IVP ONE (05:10)
[2018-07-17] MEDS ORDERED: MORPHINE 4 MG/ML SDV IVP ONE (05:10)
--- NOTE | 2018-07-17 05:12 | ER Report ---
History and Physical Time Seen By MD: 05:13 HPI/ROS CHIEF COMPLAINT: recurrent abdominal pain HISTORY OF PRESENT ILLNESS: This 53 year old female was here earlier tonight with abdominal pain. History of bowel obstructions in the past. [place] better and wanted to try conservative measures. Went home, but when medication wore off, pain returned, so she is back. We will go ahead with CT scan and labs at this time. See prior evaluation a few hours ago. Allergies: Coded Allergies: gluten (Verified Allergy, Mild, 07/17/18) Feels better not eating Gluten methimazole (Verified Allergy, Unknown, Hives/Rash, 07/17/18) Home Meds Active Scripts Ondansetron (ZOFRAN ODT) 4 Mg Tab.rapdis, 4 MG PO Q6-8H PRN for NAUSEA, #30 TAB.BRIDGET Prov:GABY DANIEL MD 05/05/18 Reported Medications Pitavastatin Calcium (LIVALO) 4 Mg Tablet, 4 MG PO QDAY 05/04/18 Cyclophosphamide (Cyclophosphamide) 50 Mg Capsule, 50 MG PO QDAY, CAPSULE 01/16/18 Cholecalciferol (Vitamin D3) (VITAMIN D) 1,000 Unit Capsule, 1000 UNIT PO QDAY, CAPSULE DAILY FOR 2 WEEKS A MONTH 01/16/18 Bevacizumab (AVASTIN) 100 Mg/4 Ml Injs, 100 MG IV Q3WK 01/16/18 Reviewed Nurses Notes: Yes Smoking Status: Never Smoker Hx Substance Use Disorder: No Hx Alcohol Use: Yes (INFREQUENTLY) Constitutional Vital Sign - Last 24 Hours 07/17/18 07/17/18 07/17/18 07/17/18 05:08 05:22 05:23 05:33 Pulse ??? 53 B/P (MAP) 131/92 (105) 116/82 (93) Pulse Ox 91 07/17/18 07/17/18 07/17/18 07/17/18 05:35 05:38 05:40 05:53 Temp 97.8 Pulse 50 45 45 Resp 14 B/P (MAP) 116/82 Pulse Ox 94 100 99 O2 Delivery Room Air O2 Flow Rate 2.0 07/17/18 07/17/18 07/17/18 07/17/18 06:00 06:08 06:13 06:26 Pulse 47 ??? B/P (MAP) 103/71 (82) 101/64 (76) Pulse Ox 98 07/17/18 07/17/18 07/17/18 06:30 07:00 07:13 Pulse 49 B/P (MAP) 115/79 (91) 120/83 (95) Pulse Ox 98 Physical Exam General Appearance: Alert, having distress again because of abdominal pain. Gastrointestinal: Abdomen with pain again in periumbilical area with firmness there, soft and nontender elsewhere. DIFFERENTIAL DIAGNOSIS: After history and physical exam differential diagnosis was considered for what looks like small bowel obstruction. Medical Decision Making Data Points Result Diagram: 07/17/18 0507/17/18 05 Laboratory Hematology Test 07/17/18 00:46 07/17/18 05:25 Urine Color Yellow Urine Clarity Slightly-cloudy Urine pH 5.0 pH (4.8-9.5) Urine Specific Sod 1.016 Urine Protein 30 mg/dL (NEGATIVE) Urine Glucose (UA) Negative mg/dL (NEGATIVE) Urine Ketones Negative mg/dL (NEGATIVE) Urine Blood Negative (NEGATIVE) Urine Nitrite Negative (NEGATIVE) Urine Bilirubin Negative (NEGATIVE) Urine Urobilinogen Negative mg/dL (0.2-1.9) Urine Leukocyte Esterase Trace (NEGATIVE) Urine RBC None /HPF (0-2/HPF) Urine WBC 6 /HPF (0-5/HPF) Urine Squamous Epithelial Cells Many /LPF (</=FEW) Urine Calcium Oxalate Crystals Few /HPF (NONE) Urine Bacteria Few /HPF (NONE-FEW) Urine Mucus Few /HPF (NONE-FEW) Red Blood Count 4.03 M/uL (4.17-5.56) Mean Corpuscular Volume 105.0 fL (80.0-96.0) Mean Corpuscular Hemoglobin 36.7 pg (26.0-33.0) Mean Corpuscular Hemoglobin Concent 35.0 g/dL (32.0-36.0) Red Cell Distribution Width 14.5 % (11.5-14.5) Mean Platelet Volume 6.8 fL (7.2-11.1) Neutrophils (%) (Auto) 73.3 % (39.4-72.5) Lymphocytes (%) (Auto) 17.5 % (17.6-49.6) Monocytes (%) (Auto) 6.5 % (4.1-12.4) Eosinophils (%) (Auto) 1.9 % (0.4-6.7) Basophils (%) (Auto) 0.8 % (0.3-1.4) Nucleated RBC Relative Count (auto) 0.1 /100WBC Neutrophils # (Auto) 2.4 K/uL (2.0-7.4) Lymphocytes # (Auto) 0.6 K/uL (1.3-3.6) Monocytes # (Auto) 0.2 K/uL (0.3-1.0) Eosinophils # (Auto) 0.1 K/uL (0.0-0.5) Basophils # (Auto) 0.0 K/uL (0.0-0.1) Nucleated RBC Absolute Count (auto) 0.00 K/uL Sodium Level 135 mmol/L (137-145) Potassium Level 4.2 mmol/L (3.5-5.0) Chloride Level 99 mmol/L (98-107) Carbon Dioxide Level 27 mmol/L (22-31) Blood Urea Nitrogen 14 mg/dl (7-18) Creatinine 0.80 mg/dl (0.52-1.04) Glomerular Filtration Rate Calc > 60.0 Random Glucose 119 mg/dl (75-110) Calcium Level 9.6 mg/dl (8.4-10.2) Total Bilirubin 1.2 mg/dl (0.2-1.3) Aspartate Amino Transf (AST/SGOT) 51 U/L (0-35) Alanine Aminotransferase (ALT/SGPT) 57 U/L (0-56) Alkaline Phosphatase 81 U/L (0-126) Total Protein 7.6 g/dl (6.3-8.2) Albumin 4.3 g/dl (3.5-5.0) Amylase Level 88 U/L (0-110) Lipase 112 U/L (23-300) Chemistry Test 07/17/18 00:46 07/17/18 05:25 Urine Color Yellow Urine Clarity Slightly-cloudy Urine pH 5.0 pH (4.8-9.5) Urine Specific Sod 1.016 Urine Protein 30 mg/dL (NEGATIVE) Urine Glucose (UA) Negative mg/dL (NEGATIVE) Urine Ketones Negative mg/dL (NEGATIVE) Urine Blood Negative (NEGATIVE) Urine Nitrite Negative (NEGATIVE) Urine Bilirubin Negative (NEGATIVE) Urine Urobilinogen Negative mg/dL (0.2-1.9) Urine Leukocyte Esterase Trace (NEGATIVE) Urine RBC None /HPF (0-2/HPF) Urine WBC 6 /HPF (0-5/HPF) Urine Squamous Epithelial Cells Many /LPF (</=FEW) Urine Calcium Oxalate Crystals Few /HPF (NONE) Urine Bacteria Few /HPF (NONE-FEW) Urine Mucus Few /HPF (NONE-FEW) White Blood Count 3.2 k/uL (4.5-11.0) Red Blood Count 4.03 M/uL (4.17-5.56) Hemoglobin 14.8 g/dL (12.0-16.0) Hematocrit 42.3 % (34.0-47.0) Mean Corpuscular Volume 105.0 fL (80.0-96.0) Mean Corpuscular Hemoglobin 36.7 pg (26.0-33.0) Mean Corpuscular Hemoglobin Concent 35.0 g/dL (32.0-36.0) Red Cell Distribution Width 14.5 % (11.5-14.5) Platelet Count 241 K/uL (150-450) Mean Platelet Volume 6.8 fL (7.2-11.1) Neutrophils (%) (Auto) 73.3 % (39.4-72.5) Lymphocytes (%) (Auto) 17.5 % (17.6-49.6) Monocytes (%) (Auto) 6.5 % (4.1-12.4) Eosinophils (%) (Auto) 1.9 % (0.4-6.7) Basophils (%) (Auto) 0.8 % (0.3-1.4) Nucleated RBC Relative Count (auto) 0.1 /100WBC Neutrophils # (Auto) 2.4 K/uL (2.0-7.4) Lymphocytes # (Auto) 0.6 K/uL (1.3-3.6) Monocytes # (Auto) 0.2 K/uL (0.3-1.0) Eosinophils # (Auto) 0.1 K/uL (0.0-0.5) Basophils # (Auto) 0.0 K/uL (0.0-0.1) Nucleated RBC Absolute Count (auto) 0.00 K/uL Glomerular Filtration Rate Calc > 60.0 Calcium Level 9.6 mg/dl (8.4-10.2) Total Bilirubin 1.2 mg/dl (0.2-1.3) Aspartate Amino Transf (AST/SGOT) 51 U/L (0-35) Alanine Aminotransferase (ALT/SGPT) 57 U/L (0-56) Alkaline Phosphatase 81 U/L (0-126) Total Protein 7.6 g/dl (6.3-8.2) Albumin 4.3 g/dl (3.5-5.0) Amylase Level 88 U/L (0-110) Lipase 112 U/L (23-300) Urinalysis Test 07/17/18 00:46 Urine Color Yellow Urine Clarity Slightly-cloudy Urine pH 5.0 pH (4.8-9.5) Urine Specific Sod 1.016 Urine Protein 30 mg/dL (NEGATIVE) Urine Glucose (UA) Negative mg/dL (NEGATIVE) Urine Ketones Negative mg/dL (NEGATIVE) Urine Blood Negative (NEGATIVE) Urine Nitrite Negative (NEGATIVE) Urine Bilirubin Negative (NEGATIVE) Urine Urobilinogen Negative mg/dL (0.2-1.9) Urine Leukocyte Esterase Trace (NEGATIVE) Urine RBC None /HPF (0-2/HPF) Urine WBC 6 /HPF (0-5/HPF) Urine Squamous Epithelial Cells Many /LPF (</=FEW) Urine Calcium Oxalate Crystals Few /HPF (NONE) Urine Bacteria Few /HPF (NONE-FEW) Urine Mucus Few /HPF (NONE-FEW) EKG/Imaging Imaging ABDOMEN/PELVIS WITH CONTRAST HISTORY: Severe abdominal pain. History of ovarian cancer. COMPARISON: 05/04/2018 and studies dating to 06/26/2017. TECHNIQUE: Axial images were obtained from the lung bases through the symphysis pubis with intravenous contrast. Sagittal and coronal reformats were performed. One of the following dose optimization techniques was utilized in the performance of this exam: Automated exposure control; adjustment of the mA and/ or kV according to the patient's size; or use of an iterative reconstruction technique. Specific details can be referenced in the facility's radiology CT exam operational policy. CONTRAST: 75 mL IV [id number]. FINDINGS: Lower chest: There is minimal atelectasis. Liver: There are too small to characterize low attenuating lesions in the right lobe of the liver that are unchanged from 2017. There is low-attenuation surrounding intrahepatic portal veins, compatible with hypervolemia. Gallbladder/biliary: Normal. Pancreas: Normal. Spleen: Normal. Adrenals: Normal. Kidneys/ureters/bladder: There is mild to moderate right hydronephrosis and hydroureter, secondary to impingement on the lower right ureter by dilated bowel loops. No obstructing or nonobstructing calculus. The left kidney, the ureters, and the bladder are normal. GI/mesentery/peritoneal cavity: There are dilated fluid-filled small bowel loops with the transition the right lower quadrant. There are clustered fluid-filled small bowel loops in the pelvis, as before. The appendix is normal. There is a small amount of reactive free fluid in the leaves of the mesentery. No free air. Vessels: No atherosclerotic disease. No aneurysm. No dissection. Nodes: Normal. Pelvis: There are phleboliths. Uterus and ovaries are absent. Bones/vertebra/soft tissues: There is straightening of the normal lumbar lordos is. There is stable mild wedging of T10-L1, likely physiologic. IMPRESSION: 1. Small bowel obstruction with transition in the right lower quadrant, similar to prior study. 2. Clustered fluid-filled loops of small bowel in the pelvis, similar to prior study, which may be due to multiple adhesions. No visible bowel implants. 3. Small amount of ascites, reactive secondary to small bowel obstruction. 4. Dilated small bowel impinges upon the lower right ureter and causes mild to moderate right hydronephrosis and hydroureter, new from prior study. 5. Stable liver lesions. These findings were discussed by phone with DEX JENNINGS on 07/17/2018 7:03 AM. Report Dictated By: Anum Lazar at 07/17/2018 6:38 AM ED Course/Re-evaluation Clinical Indication for ER IV: Hydration, IV Access ED Course Pain and nausea medicines given. CT scan done which shows small bowel obstruction. See above. Discussed with Dr Larsen. NG tube started. Dr. Yann durand in to see the patient and admit. Decision to Disposition Date: Jul 17, 2018 Decision to Disposition Time: 07:23 Depart Departure Latest Vital Signs Vital Signs Date Time Temp Pulse Resp B/P (MAP) Pulse Ox O2 Delivery O2 Flow Rate FiO2 07/17/18 07:13 49 98 07/17/18 07:00 120/83 (95) 07/17/18 05:40 2.0 07/17/18 05:35 97.8 14 Room Air Impression: Primary Impression: Small bowel obstruction Condition: Condition Unchanged Disposition: Admitted from ER Referrals: JOSÉ PÉREZ MD (PCP) DEX JENNINGS MD Jul 17, 2018 05:12
[2018-07-17 05:43] LABS: PLATELET COUNT, AUTOMATED 241 K/uL (150-450)
[2018-07-17] MEDS ORDERED: IOPAMIDOL 76% 100 ML INFUS BTL 100 ML ONE (05:47)
--- NOTE | 2018-07-17 07:12 | RADIOLOGY IMAGING REPORT ---
FACILITY: [facility] - [place] PATIENT NAME: Laverne Mcadams : 1965 MR: [id number] V: [id number] EXAM DATE: ORDERING PHYSICIAN: DEX JENNINGS TECHNOLOGIST: Location: [facility] - [place] Patient: Laverne Mcadams : 1965 Visit/Account:[id number] Date of Sevice: 07/17/2018 ABDOMEN/PELVIS WITH CONTRAST HISTORY: Severe abdominal pain. History of ovarian cancer. COMPARISON: 05/04/2018 and studies dating to 06/26/2017. TECHNIQUE: Axial images were obtained from the lung bases through the symphysis pubis with intravenou s contrast. Sagittal and coronal reformats were performed. One of the following dose optimization techniques was utilized in the performance of this exam: Autom ated exposure control; adjustment of the mA and/or kV according to the patient's size; or use of an i terative reconstruction technique. Specific details can be referenced in the facility's radiology CT exam operational policy. CONTRAST: 75 mL IV Isovue-370. FINDINGS: Lower chest: There is minimal atelectasis. Liver: There are too small to characterize low attenuating lesions in the right lobe of the liver vania t are unchanged from 2017. There is low-attenuation surrounding intrahepatic portal veins, compatible with hypervolemia. Gallbladder/biliary: Normal. Pancreas: Normal. Spleen: Normal. Adrenals: Normal. Kidneys/ureters/bladder: There is mild to moderate right hydronephrosis and hydroureter, secondary to impingement on the lower right ureter by dilated bowel loops. No obstructing or nonobstructing calcu masoud. The left kidney, the ureters, and the bladder are normal. GI/mesentery/peritoneal cavity: There are dilated fluid-filled small bowel loops with the transition the right lower quadrant. There are clustered fluid-filled small bowel loops in the pelvis, as before . The appendix is normal. There is a small amount of reactive free fluid in the leaves of the mesente ry. No free air. Vessels: No atherosclerotic disease. No aneurysm. No dissection. Nodes: Normal. Pelvis: There are phleboliths. Uterus and ovaries are absent. Bones/vertebra/soft tissues: There is straightening of the normal lumbar lordosis. There is stable mi ld wedging of T10-L1, likely physiologic. IMPRESSION: 1. Small bowel obstruction with transition in the right lower quadrant, similar to prior study. 2. Clustered fluid-filled loops of small bowel in the pelvis, similar to prior study, which may be du e to multiple adhesions. No visible bowel implants. 3. Small amount of ascites, reactive secondary to small bowel obstruction. 4. Dilated small bowel impinges upon the lower right ureter and causes mild to moderate right hydrone phrosis and hydroureter, new from prior study. 5. Stable liver lesions. These findings were discussed by phone with DEX JENNINGS on 07/17/2018 7:03 AM. Report Dictated By: Anum Lazar at 07/17/2018 6:38 AM Report E-Signed By: Anum Lazar at 07/17/2018 7:07 AM WSN:[id number]
--- NOTE | 2018-07-17 08:19 | RADIOLOGY IMAGING REPORT ---
FACILITY: [facility] - [place] PATIENT NAME: Laverne Mcadams : 1965 MR: [id number] V: [id number] EXAM DATE: ORDERING PHYSICIAN: TAMERA MORELOS TECHNOLOGIST: Location: [facility] [place] Patient: Laverne Mcadams : 1965 Visit/Account:[id number] Date of Sevice: 07/17/2018 Supine abdomen, one view. HISTORY: NG placement. COMPARISON: 07/17/2018. An esophagogastric tube tip projects on the gastric body. The esophagogastric tube side hole project s on the gastroesophageal junction. Contrast material is present in a moderately dilated right upper collecting system. Contrast material is present within a nondilated left upper collecting system. Gas is present within the stomach and several nondilated loops of small bowel. No acute bony abnorma lities. The lower pelvis was not completely included. IMPRESSION: The esophagogastric tube tip projects on the gastric body. Moderate right hydronephrosis. Report Dictated By: Odin Shepherd MD at 07/17/2018 8:09 AM Report E-Signed By: Odin Shepherd MD at 07/17/2018 8:14 AM WSN:[id number]
[2018-07-17] MEDS ORDERED: MORPHINE 2 MG/ML SYR IVP ONE (08:30)
--- NOTE | 2018-07-17 08:44 | Gen Surgery History & Physical ---
History of Present Illness Chief Complaint Bowel Obstruction History of Present Illness Ms. Mcadams is a 53yo female who presented yesterday with abdominal pain, distention and nausea. She has had obstructions previously and felt that she wanted to go home after IV hydration. Her symptoms worsened and she return. A CT demonstrated obstruction and I was consulted for admission. Her history is significant for active treatment for recurrent ovarian carcinoma. She has had small bowel obstructions previously and intraperitoneal chemotherapy. Her gynecologic oncologist is in [place], [place]. History Problems: (1) Hyperlipidemia Status: Chronic (2) Recurrent carcinoma of ovary Status: Chronic Home Meds Active Scripts Ondansetron (ZOFRAN ODT) 4 Mg Tab.rapdis, 4 MG PO Q6-8H PRN for NAUSEA, #30 TAB.BRIDGET Prov:GABY DANIEL MD 05/05/18 Reported Medications Pitavastatin Calcium (LIVALO) 4 Mg Tablet, 4 MG PO QDAY 05/04/18 Cyclophosphamide (Cyclophosphamide) 50 Mg Capsule, 50 MG PO QDAY, CAPSULE 01/16/18 Cholecalciferol (Vitamin D3) (VITAMIN D) 1,000 Unit Capsule, 1000 UNIT PO QDAY, CAPSULE DAILY FOR 2 WEEKS A MONTH 01/16/18 Bevacizumab (AVASTIN) 100 Mg/4 Ml Injs, 100 MG IV Q3WK 01/16/18 Allergies: Coded Allergies: gluten (Verified Allergy, Mild, 07/17/18) Feels better not eating Gluten methimazole (Verified Allergy, Unknown, Hives/Rash, 07/17/18) Patient History: FH: COPD (chronic obstructive pulmonary disease) FATHER FH: Gilbert's disease FATHER FH: arthritis FATHER FH: celiac disease FH: hypothyroidism CHILD CHILD FH: multiple sclerosis BROTHER OR SISTER BROTHER OR SISTER FH: osteoporosis MOTHER BROTHER OR SISTER Graves' disease Review of Systems All Systems Reviewed/Normal: Yes, Except as Noted Constitutional: Weight Loss Gastrointestinal: Nausea, Constipation, Abdominal Pain Exam General Appearance: Alert, Awake Neuro: No Gross deficits Eyes: PERRLA Cardiovascular: Normal Rhythm & Peripheral Pulses Respiratory: No Respiratory Distress GI: Other (Distended, sore in the midline, no peritoneal signs) Extremities: Warm Psych: Alert & Oriented X3, Appropriate Mood & Affect Medical Decision Making Data Points Result Diagram: 07/17/1852407/17/18 05 EKG / Imaging Imaging CT Abdomen/Pelvis: SBO with point of obstruction appearing to be in the RLQ with fecalization of SB contents. Large amount of stool throughout the colon. Small amount of free fluid but no free air. No focal bowel wall thickening. Notable dilation of the right ureter without evidence of urolithiasis. Assessment and Plan Problems: (1) Right ureter dilated Status: Acute Assessment & Plan: Expect that this is secondary to adhesions/tumor. Cr is normal. She will need consultation with urology to consider intermediate stent placement. Will follow this admission by laboratory studies. (2) Small bowel obstruction Status: Acute Assessment & Plan: Ms. Mcadams appears to have a recurrent SBO with focus of obstruction in the RLQ. She does not have any specific indication of ischemia. NGT was placed. Will add an enema today due to the amount of obstipation seen. Consider SBFT tomorrow. Discussed all findings and plan with the patient who has expressed her understanding and agreement. Time Spent: < 30 min Venous Thromboembolism VTE Risk Physician Assess for VTE Risk: Yes Patient's VTE Risk: High VTE Diagnostic Test 2 Days Prior to Admit: No Antithrombotics Is Pt On Any Antithrombotics?: No TAMERA MORELOS MD Jul 17, 2018 07:54
[2018-07-17] MEDS: CYCLOPHOSPHAMIDE 50 MG CAPSULE PO SCH (09:00)
[2018-07-17] MEDS ORDERED: PATIENT'S OWN MED PO SCH (09:00)
[2018-07-17 09:07] VITALS: BP 122/81
[2018-07-17] MEDS: KCL/D1/2NS 20 MEQ 1000 ML 1,000 ML IV PRN ×2 (09:30→19:39)
[2018-07-17] MEDS: FAMOTIDINE(*) 20MG/50ML PREMIX 50 ML IVPB SCH ×2 (09:31→21:15)
--- NOTE | 2018-07-17 09:34 | Medical Nutrition Therapy ---
Nutrition Anthropometrics Height (Inches): 64 Weight (Pounds): 125 Weight (Calculated Kilograms): 56.699 BMI: 21.5 Akira Nutrition Score: Akira Nutrition Risk Score: Dietary Referral Nutrition Risk Factors: Nutrition Risk Comment: DOES NOT EAT GLUTEN Physical Findings Physical Appearance: WNL Skin Appearance Skin Appearance: Edema Edema Location Modifier: Edema Location: Type of Edema: Degree of Edema: Gastrointestinal Symptoms GI Symtoms: Tube Present: Bowel Sounds: Recent Bowel Pattern: Stool Characteristics: Nutrition/Food History N/V Nutritional Diagnosis Nutritional Risk Acuity 1: GI Obstruction Nutritional Risk Acuity 3: Cancer, Gastritis/Gastroenteritis Past Medical History: Reocurrent carcinoma of ovary, constipation, abdominal pain, small bowl obstruction, cervical cancer Nutritional Acuity: 1-High Nutrition Diagnosis: Altered GI Function Nutrition Etiology: Physiological Causes Nutrition Problem/Etiology/Sym: Altered Gastrointestinal (GI) Function related to alteration in gastrointestinal tract function secondary to SBO AEB positive SBO diagnosis with CT of the abdomen and abdominal pain, nausea prior to admit. Energy Requirement: 1850 ([place] Jeor: Actual BW X 1.6) Protein Requirement: 68 (Actual BW Kg X .1.2) Fluid Requirement: 1850 Diet Type: NPO/Ice Chips Only Diet Comment To RSA: Gluten free Nutrition Monitoring & Eval Nutrition Goals: Eat 75-100% Meal RD Patient Assessment Time: [address] Assessment Type: RD Assessment Patient Nutrition Acuity: 1-High Nutritional Comment: 07/17/18 Pt admitted for SBO. Also history of recurrent ovarian carcinoma. Normal wt range with BMI of 21.5. Na+ 135, Glu 119, High AST/ALT, Low WBC. Presently NPO/ice chips only. Monitor clinical progression, diet changes, labs, etc. -GAURAV ALBRIGHT Jul 17, 2018 09:34
[2018-07-17] MEDS: MORPHINE 2 MG/ML SYR IVP PRN ×6 (10:26→23:05)
[2018-07-17] MEDS: ONDANSETRON 4 MG/2 ML VIAL IVP PRN (10:26)
--- NOTE | 2018-07-17 11:57 | CONSULTATION ---
EVENT DATE: July 17, 2018 REASON FOR CONSULTATION Right hydroureteronephrosis. HISTORY OF PRESENT ILLNESS The patient is a 53-year-old white female who presented to the emergency room with diffuse periumbilical abdominal pain and was diagnosed with a small bowel obstruction by CT scan. She was also noted to have moderate right hydroureteronephrosis down to the mid right ureter on her scan. A delayed KUB following NG tube placement revealed a mildly dilated ureter down to the mid portion. She had a normal appearing system on the left side. A prior CT scan performed in April appeared normal. Her urinalysis revealed no signs of infection or hematuria. Her creatinine was 0.8. She is now being admitted for observation and treatment for her small bowel obstruction. I discussed her new findings in detail in the emergency room and reviewed her films. I informed her she likely had an extrinsic compression either to recurrent tumor and/or fiber neurosis or adhesions. Options would be primarily retrograde stent placement vs. a percutaneous nephrostomy tube. Other option of observation would likely result in continued obstruction resulting with significant decrease in renal function on that side. PAST MEDICAL HISTORY 1. Stage 3C ovarian cancer with metastatic lesions in liver, status post several rounds of chemotherapy. 2. Lymphocytic colitis. 3. Hyperthyroidism with . PAST SURGICAL HISTORY 1. EGD in 2014. 2. Total abdominal hysterectomy with BSO and omentectomy with a partial liver resection for stage 3C ovarian cancer in Dec, 2014. 3. Exploratory laparotomy with resection of liver mets in mid-2016. 4. Knee surgery times 2. 5. Colonoscopy times 2. 6. Tonsillectomy. 7. Intraperitoneal port placement and removal. CURRENT MEDICATIONS 1. Pentostatin. 2. Vitamin D. 3. Cyclophosphamide. 4. Avastatin. 5. Zofran. ALLERGIES Glutin SOCIAL HISTORY The patient lives in [place], [place]. 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 FAMILY HISTORY Noncontributory. REVIEW OF SYSTEMS The patient denies kidney stones, flank pain, gross hematuria, urinary tract infections, or irritative voiding symptoms. PHYSICAL EXAMINATION GENERAL: The patient is a well-developed, thin, white female in no acute distress. HEENT: Normocephalic, atraumatic. CHEST: Clear to auscultation bilaterally. ABDOMEN: Exam is soft, moderately distended without peritoneal signs. She had no CVAT. EXTREMITIES: Without clubbing, cyanosis, or edema. NEURO: Nonfocal. IMPRESSION This is a 53-year-old white female with stage 3C metastatic ovarian cancer, status post two exploratory laparotomies for her tumor now being admitted for recurrent small bowel obstruction. She is noted to have moderate right hydroureteronephrosis down to the mid ureter. Delayed KUB shows a filling of contrast down to this level consistent with a partial obstruction. After discussion she is considering right ureteral stent placement. Risk and benefits were discussed including, preserving the renal function, however, the exact length and severity of obstruction is unknown at this point. We would perform a retrograde polygram intraoperatively to further assess this before attempting stent placement. She understands that this may be unsuccessful which may require a percutaneous nephrostomy tube. RECOMMENDATIONS We will proceed with anesthetic cystoscopy, right retrograde polygram, and right ureteral stent placement in the morning. STIVEN
[2018-07-17] MEDS: ACETAMINOPHEN(*)1000 MG/100 ML 100 ML IVPB SCH ×3 (12:01→23:07)
[2018-07-17 12:13] VITALS: Ht 162.6 cm; Wt 55.8 kg
[2018-07-17 14:06] VITALS: BP 106/68
--- NOTE | 2018-07-17 18:04 | General Surgery Progress Note ---
Subjective Progress Notes Subjective Feels better this afternoon. 1 small and 1 larger BM after enemas. Less pain though remains distended. Physical Exam Vital Signs Date Time Temp Pulse Resp B/P (MAP) Pulse Ox O2 Delivery O2 Flow Rate FiO2 07/17/18 14:06 98.0 50 16 106/68 (81) 86 Room Air 07/17/18 10:35 1.0 General Appearance: Alert, Awake GI: Other (Distended, sore, no peritoneal signs) Result Diagram: 07/17/1852407/17/18524 Assessment and Plan Problems: (1) Right ureter dilated Status: Acute Assessment & Plan: Expect that this is secondary to adhesions/tumor. Cr is normal. She will need consultation with urology to consider custodial stent placement. Will follow this admission by laboratory studies. 1800: To OR tomorrow for cystoscopy and placement of right ureteral stent. (2) Small bowel obstruction Status: Acute Assessment & Plan: Ms. Mcadams appears to have a recurrent SBO with focus of obstruction in the RLQ. She does not have any specific indication of ischemia. NGT was placed. Will add an enema today due to the amount of obstipation seen. Consider SBFT tomorrow. Discussed all findings and plan with the patient who has expressed her understanding and agreement. 1800: obstruction persists but some results with enemas. pain better controlled. ambulating well in the halls. continue NGT suction. consider SBFT in am. Time Spent: < 30 min Exam Sepsis Risk: No Definite Risk TAMERA MORELOS MD Jul 17, 2018 18:04
[2018-07-17 18:31] VITALS: BP 104/57
[2018-07-17 23:10] VITALS: BP 107/67
[2018-07-18] VITALS (8 sets, daily range): BP systolic 91–110; BP diastolic 53–72
[2018-07-18] MEDS: KCL/D1/2NS 20 MEQ 1000 ML 1,000 ML IV PRN (04:17)
[2018-07-18] MEDS: ONDANSETRON 4 MG/2 ML VIAL IVP PRN (04:18)
[2018-07-18] MEDS: ACETAMINOPHEN(*)1000 MG/100 ML 100 ML IVPB SCH (05:49)
[2018-07-18] MEDS: FAMOTIDINE(*) 20MG/50ML PREMIX 50 ML IVPB SCH (05:50)
[2018-07-18 06:00] LABS: PLATELET COUNT, AUTOMATED 215 K/uL (150-450)
[2018-07-18] MEDS ORDERED: NORMOSOL R SOLN(*) 1000 ML BAG 1,000 ML IV ONE (07:04)
[2018-07-18] MEDS ORDERED: ceFAZolin(*) 1 GM VIAL 1 GM in NS(*) 0.9% 100 ML ADDVANT BAG 100 ML IV ONE (07:15)
[2018-07-18] MEDS ORDERED: fentaNYL CITR 100 MCG/2 ML AMP ONE (07:26)
[2018-07-18] MEDS ORDERED: PROPOFOL EMUL(*) 10MG/ML 20 ML 20 ML ONE (07:27)
[2018-07-18] MEDS ORDERED: LIDOCAINE MPF 1% 5 ML VIAL ONE (07:27)
[2018-07-18] MEDS ORDERED: IOPAMIDOL-200 50 ML VIAL IS ONE (07:33)
[2018-07-18] MEDS ORDERED: ONDANSETRON 4 MG/2 ML VIAL ONE (07:59)
[2018-07-18] MEDS ORDERED: BELLADONNA ALK/OPIUM 60MG SUPP PR ONE (08:21)
[2018-07-18] MEDS: CYCLOPHOSPHAMIDE 50 MG CAPSULE PO SCH (09:00)
--- NOTE | 2018-07-18 09:57 | OPERATIVE REPORT 1 ---
EVENT DATE: July 18, 2018 SURGEON: Yaw Luther MD ANESTHESIOLOGIST: August Miles MD ANESTHESIA: General. PREOPERATIVE DIAGNOSIS Right hydronephrosis. POSTOPERATIVE DIAGNOSIS Right mid ureteral partial obstruction consistent with secondary compression of approximately 1 cm in length just above the iliac vessels. PROCEDURE PERFORMED 1. Cystoscopy. 2. Right retrograde pyelogram. 3. Right internal double-J ureteral stent placement. ESTIMATED BLOOD LOSS Minimal. IV FLUIDS Crystalloids. DRAINS 6-[place] Island[place] x 24 cm Percuflex plus stent on right. FINDINGS Approximately 1 cm area of narrowing in the mid ureter just above the iliac vessels with proximal moderate hydroureteronephrosis and normal distal ureter. COMPLICATIONS None. CONDITION The patient was taken to the recovery room awake and in stable condition. STATEMENT OF MEDICAL NECESSITY The patient is a 53-year-old white female with metastatic ovarian cancer who is now admitted for small bowel obstruction and was noted to have right hydroureteronephrosis on her evaluation by CT scan. This finding was not present on a prior scan approximately 2-1/2 months ago. She denied flank pain or gross hematuria. Her current creatinine is 0.8. A delayed film from her CT scan performed showed ureteral dilation down to the mid ureter just at the pelvic inlet. Options were discussed and she has elected to under evaluation with retrograde pyelogram followed by possible stent placement to relieve the partial obstruction. Most likely etiology is either recurrent extrinsic tumor compression and/or fibrosis and/or adhesions resulting in this finding. DESCRIPTION OF OPERATION PERFORMED The patient was brought to the operating room. After general anesthetic was obtained, she was placed in the dorsal lithotomy position and prepped and draped in the usual sterile manner. Anesthetic cystoscopy was performed with the 21- [place] rigid Dickey sheath and and 30-degree lens. She had a normal appearing urethra without evidence of bladder inflammatory polyps or lesions. Her bladder mucosa was smooth without tumors, masses, or other anomalies. She had split- like ureteral orifices, both of these effluxing clear urine bilaterally. At this point, the right ureteral orifice was cannulated with a 6-[place] open-end access catheter which was advanced approximately 2 cm inside the ureteral orifice. Retrograde pyelogram was performed by injecting 7 cc of contrast material in a retrograde manner with fluoroscopic imaging. Her distal ureter was normal until just above the iliac vessels where approximately a 1 cm area of smooth narrowing was encountered and above this, the ureter was mildly dilated and fairly tortuous. Her calyceal system was moderately blunted by my intraoperative interpretation of this retrograde pyelogram. Following this, a 0.035 Bentson type wire was advanced in the lumen of the access catheter and under fluoroscopic imaging was easily negotiated past the area of narrowing and curled in her renal pelvis. The access catheter was removed and the wire was used to place 6-[place] x 24 cm Percuflex plus stent. The wire was removed, she was noted to have good curling in the renal pelvis by fluoroscopic imaging and good curling in the bladder by direct vision. At this point, the bladder was drained through the cystoscopic sheath. A B&O suppository was given per rectally at the conclusion of the case. She was awakened in the operating room and taken to the recovery area in stable condition. PLAN Will be to allow the patient to return to the floor for continued observation and treatment by general surgery for her partial small bowel obstruction. We will discuss watermelon inspector ureteral stent management exchange in approximately 2-3 months as indicated. STIVEN
--- NOTE | 2018-07-18 10:05 | General Surgery Progress Note ---
Subjective Progress Notes Subjective Feels better today. Several bowel movements, less distention, no nausea. Physical Exam Vital Signs Date Time Temp Pulse Resp B/P (MAP) Pulse Ox O2 Delivery O2 Flow Rate FiO2 07/18/18 09:30 70 16 96 07/18/18 07:27 98.0 99/71 (80) Room Air 07/17/18 23:10 1.0 Intake and Output 07/18/18 06:59 Intake Total 1250 ml Output Total 375 ml Balance 875 ml Intake Oral 0 ml IV Total 1250 ml Output Gastric Drainage Total 375 ml # Voids 3 # Bowel Movements 4 # Emeses 1 General Appearance: Alert, Awake, No Acute Distress Neuro: No Gross deficits Respiratory: No Respiratory Distress GI: Soft and Non-Tender Psych: Alert & Oriented X3, Appropriate Mood & Affect Result Diagram: 07/18/1852707/18/18527 Assessment and Plan Problems: (1) Right ureter dilated Status: Acute Assessment & Plan: Expect that this is secondary to adhesions/tumor. Cr is normal. She will need consultation with urology to consider intermediate teacher stent placement. Will follow this admission by laboratory studies. 1800: To OR tomorrow for cystoscopy and placement of right ureteral stent. 07/18/2018: ureteral stent successfully placed with 1cm length of stenosis just above the iliac vessels (2) Small bowel obstruction Status: Acute Assessment & Plan: Ms. Mcadams appears to have a recurrent SBO with focus of obstruction in the RLQ. She does not have any specific indication of ischemia. NGT was placed. Will add an enema today due to the amount of obstipation seen. Consider SBFT tomorrow. Discussed all findings and plan with the patient who has expressed her understanding and agreement. 1800: obstruction persists but some results with enemas. pain better controlled. ambulating well in the halls. continue NGT suction. consider SBFT in am. 07/18/2018: clinically improved. Checked a KUB that shows one loop of small bowel that remains distended. Discussed proceeding with a SBFT to ensure that the obstruction has resolved before removing the NGT. Time Spent: < 30 min Exam Sepsis Risk: No Definite Risk TAMERA MORELOS MD Jul 18, 2018 10:05
[2018-07-18] MEDS ORDERED: KCL/D1/2NS 20 MEQ 1000 ML 1,000 ML IV PRN (10:07)
[2018-07-18] MEDS ORDERED: DIATRIZOATE MEGL/DIATRIZOA SOD 120 ML SOLN PO ONE (10:17)
[2018-07-18] MEDS ORDERED: HYOSCYAMINE SULF*0.125 MG SUBL SL PRN (11:45)
--- NOTE | 2018-07-18 14:25 | Hospitalist Depart ---
Discharge Summary Reason for Hosp/Final Diag: (1) Right ureter dilated Status: Chronic Hospital Course & Plan: Expect that this is secondary to adhesions/tumor. Cr is normal. She will need consultation with urology to consider long term care social worker stent placement. Will follow this admission by laboratory studies. 1800: To OR tomorrow for cystoscopy and placement of right ureteral stent. 07/18/2018: ureteral stent successfully placed with 1cm length of stenosis just above the iliac vessels (2) Small bowel obstruction Status: Resolved Hospital Course & Plan: Ms. Mcadams appears to have a recurrent SBO with focus of obstruction in the RLQ. She does not have any specific indication of ischemia. NGT was placed. Will add an enema today due to the amount of obstipation seen. Consider SBFT tomorrow. Discussed all findings and plan with the patient who cagle s expressed her understanding and agreement. 1800: obstruction persists but some results with enemas. pain better controlled. ambulating well in the halls. continue NGT suction. consider SBFT in am. 07/18/2018: clinically improved. Checked a KUB that shows one loop of small bowel that remains distended. Discussed proceeding with a SBFT to ensure that the obstruction has resolved before removing the NGT. 1420: SBFT with transit into colon by 2.5 hours. Clinically resolved. Will remove NGT and discharge home. Patient will folllow-up with urology and her medical psychotherapist/oncologist in [place], [place]. Departure Weight (Pounds): 123 Weight (Ounces): 2.0 Result Diagram: 07/18/1852707/18/18527 Condition: Improved Discharge: Home Discharge Code Status: Full Code Time Spent: > 30 min Consults Urology Discharge Instructions Home Meds Active Scripts Ondansetron (ZOFRAN ODT) 4 Mg Tab.rapdis, 4 MG PO Q6-8H PRN for NAUSEA, #30 TAB.BRIDGET Prov:GABY DANIEL MD 05/05/18 Reported Medications Pitavastatin Calcium (LIVALO) 4 Mg Tablet, 4 MG PO QDAY 05/04/18 Cyclophosphamide (Cyclophosphamide) 50 Mg Capsule, 50 MG PO QDAY, CAPSULE 01/16/18 Cholecalciferol (Vitamin D3) (VITAMIN D) 1,000 Unit Capsule, 1000 UNIT PO QDAY, CAPSULE DAILY FOR 2 WEEKS A MONTH 01/16/18 Bevacizumab (AVASTIN) 100 Mg/4 Ml Injs, 100 MG IV Q3WK 01/16/18 Diet: Regular Activity: As Tolerated Venous Thromboembolism Antithrombotics Is Pt On Any Antithrombotics?: No TAMERA MORELOS MD Jul 18, 2018 14:25
--- NOTE | 2018-07-18 15:12 | RADIOLOGY IMAGING REPORT ---
FACILITY: [facility] - [place] PATIENT NAME: Laverne Mcadams : 1965 MR: [id number] V: [id number] EXAM DATE: [id number] ORDERING PHYSICIAN: TAMERA MORELOS TECHNOLOGIST: Location: [facility] [place] Patient: Laverne Mcadams : 1965 Visit/Account:[id number] Date of Sevice: 07/18/2018 Abdomen single view: HISTORY: Obstruction. COMPARISON: 07/17/2018, plain films and CT scan FINDINGS: Supine view was obtained of the abdomen. NG tube is no longer visualized. Right nephroure teral stent is in place and appears to be in good position. Stomach is decompressed. There is a single loop of small bowel in the left upper quadrant which is m ildly prominent, this is a nonspecific finding. There are no other dilated loops of small or large b owel noted. There is no free air. Osseous structures are within normal limits. IMPRESSION: 1. Single loop of mildly prominent small bowel the left upper quadrant, nonspecific finding. Small bowel elsewhere is within normal limits. 2. Interval placement of a right nephroureteral stent in good position. Report Dictated By: Shana Zapata MD at 07/18/2018 3:05 PM Report E-Signed By: Shana Zapata MD at 07/18/2018 3:08 PM WSN:[email or web address]
--- NOTE | 2018-07-18 15:43 | RADIOLOGY IMAGING REPORT ---
FACILITY: [facility] - [place] PATIENT NAME: Laverne Mcadams : 1965 MR: [id number] V: [id number] EXAM DATE: [id number] ORDERING PHYSICIAN: MICHAEL SALES TECHNOLOGIST: Location: [facility] [place] Patient: Laverne Mcadams : 1965 Visit/Account:[id number] Date of Sevice: 07/18/2018 Exam type: RETROGRADE PYELOGRAM History: HEMATURIA, STENT PLACEMENT Comparison: CT abdomen and pelvis July 17, 2018. Findings: 80 portable intraoperative some spot views were submitted over the abdomen and pelvis. The fluorosco py time was 17 seconds. The fluoroscopy dose was 7.72 mGray. Images demonstrate cystoscope over the lower pelvis. Contrast is injected into the right ureter and right renal collecting system. There is moderate right hydronephrosis and moderate dilatation of the right ureter to the level of the righ t iliac crest. Subsequent images demonstrate placement of a right ureteral stent. IMPRESSION: 1. As above Report Dictated By: Lainey Mendez MD at 07/18/2018 3:30 PM Report E-Signed By: Lainey Mendez MD at 07/18/2018 3:38 PM WSN:[email or web address]
[2018-07-18] MEDS ORDERED: IBUP400T13 PO (16:10)
[2018-07-18] MEDS ORDERED: BELLADONNA ALK/OPIUM 60MG SUPP PR PRN (16:30)
--- NOTE | 2018-07-18 18:13 | RADIOLOGY IMAGING REPORT ---
FACILITY: [facility] [place] PATIENT NAME: Laverne Mcadams : 1965 MR: [id number] V: [id number] EXAM DATE: [id number] ORDERING PHYSICIAN: TAMERA MORELOS TECHNOLOGIST: Location: [facility] - [place] Patient: Laverne Mcadams : 1965 Visit/Account:[id number] Date of Sevice: 07/18/2018 Exam type: SMALL BOWEL SERIES History: Small bowel obstruction Comparison: CT abdomen pelvis July 17, 2018. Findings: The patient received 300 mL of a Gastrografin suspension through the esophagogastric tube. Contrast was followed throughout the small bowel to the right-sided the colon. Transit time to the right-side d colon was 2 1/2 hours. There are several minimally dilated loops of small bowel in the mid to left side of the abdomen with no apparent obstruction identified. No fluoroscopy was performed. Inciden tally noted is a right ureteral stent IMPRESSION: 1. Transit time to the right-sided colon was 2 1/2 hours. There were several mildly dilated loops o f small bowel in the mid to left-sided abdomen although no apparent obstruction was identified. Report Dictated By: Lainey Mendez MD at 07/18/2018 6:08 PM Report E-Signed By: Lainey Mendez MD at 07/18/2018 6:10 PM WSN:[email or web address]
[2018-07-19] MEDS ORDERED: LORA-1455 PO (06:20)
== END 2018-07-18 14:26 | disposition home or self-care (01) ==
LOC: ER 05:28 → INTOOBSV 07:56 → MED 07:56 → INTOOBSV 07:57 → OBSVTOIN 07:57
PROVIDERS: ADMIT Surgery; ATTEND Surgery
DX: N13.1 Hydronephrosis with ureteral stricture, not elsewhere classified (principal); K56.50 Intestinal adhesions [bands], unspecified as to partial versus complete obstruction; C56.9 Malignant neoplasm of unspecified ovary; Z92.21 Personal history of antineoplastic chemotherapy; C78.7 Secondary malignant neoplasm of liver and intrahepatic bile duct; Z90.710 Acquired absence of both cervix and uterus
CPT/HCPCS: 36415; 52332; 74018; 74177; 74250; 74420; 81001; 82150; 83690; 85025; 99284; C1769; C2617; G0378; J0131; J0690; J2001; J2270; J2405; J2704; J3010; J3480; J3490; J7030; Q9966; Q9967; 82040; 82247; 82310; 82374; 82435; 82565; 82947; 84075; 84132; 84155; 84295; 84450; 84460; 84520

== ENCOUNTER 2018-07-19 02:21 | Emergency (ER) | payer OTHER ==
[2018-07-17 12:13] VITALS: Wt 54.4 kg
[~2018-07-19 02:21] MED LIST changes: +IBUP400T13 PO
--- NOTE | 2018-07-19 02:24 | ER Report ---
History and Physical Time Seen By MD: 02:24 HPI/ROS CHIEF COMPLAINT: headache HISTORY OF PRESENT ILLNESS: This is a 53 year old female. She has a headache, posterior occipital scalp, base of skull. Present most of the day. Had been released from the hospital here where she was admitted for small bowel obstruction which is recurrent, as well as a new finding of right ureteral stricture requiring a stent. She still has some mild abdominal pain and nausea, but much better. Urinating without problems now. Still mild right flank pain. Has some rigors prior to release from hospital but no fevers, and not having any subsequent problems with these today. She has been having some sinus problems prior to admission, and ended up with an NG tube that irritated her nasal passages, and also had intubation for her ureteral stent. She had Ancef during surgery, and said that she did feel much better after this, and started feeling poorly again yesterday morning. She does not have a history of headaches. She does have a history of ovarian cancer. Has photophobia and sensitivity to loud noises. Bowels working well. Had gastrografin in NG during hospitalization, so having some liquid stools. REVIEW OF SYSTEMS: Constitutional: As above. Eyes: No discharge. No vision changes. ENT: Mild sore throat and sinus congestion as noted. No hearing changes, but can hear her pulse in her ear. Cardiovascular: No chest pain. No palpitations. Respiratory: No cough. No shortness of breath. Gastrointestinal: As above. Genitourinary: No dysuria. No frequency. Musculoskeletal: No back pain. No extremity pain. Skin: No rashes. No bruising. Neurological: No numbness. No weakness. Allergies: Coded Allergies: gluten (Verified Allergy, Mild, 07/19/18) Feels better not eating Gluten methimazole (Verified Allergy, Unknown, Hives/Rash, 07/19/18) Home Meds Active Scripts Lorazepam (ATIVAN) 0.5 Mg Tablet, 0.5 MG PO Q6H PRN for HEADACHE, #8 TAB 0 R efills Prov:DEX JENNINGS MD 07/19/18 Ondansetron (ZOFRAN ODT) 4 Mg Tab.rapdis, 4 MG PO Q6-8H PRN for NAUSEA, #30 TAB.BRIDGET Prov:GABY DANIEL MD 05/05/18 Reported Medications Ibuprofen (IBUPROFEN) 400 Mg Tablet, 1 TAB PO Q6H PRN for PAIN, #20 TAB 07/18/18 Pitavastatin Calcium (LIVALO) 4 Mg Tablet, 4 MG PO QDAY 05/04/18 Cyclophosphamide (Cyclophosphamide) 50 Mg Capsule, 50 MG PO QDAY, CAPSULE 01/16/18 Cholecalciferol (Vitamin D3) (VITAMIN D) 1,000 Unit Capsule, 1000 UNIT PO QDAY, CAPSULE DAILY FOR 2 WEEKS A MONTH 01/16/18 Bevacizumab (AVASTIN) 100 Mg/4 Ml Injs, 100 MG IV Q3WK 01/16/18 Reviewed Nurses Notes: Yes Hx Smoking: No Smoking Status: Never Smoker Hx Substance Use Disorder: No Hx Alcohol Use: Yes (INFREQUENTLY) Constitutional Physical Exam General Appearance: The patient is alert. Mild distress due to the headache. Non-toxic in appearance. Eyes: Pupils are equal, round. Reactive to light. No pallor, injection or icterus. Extraocular movements are intact. ENT: Mucous membranes are moist. Normal oral mucosa. Posterior oropharynx has mild erythema, thin clear post nasal drainage. Nasal mucosa with mild erythema. Normal tympanic membranes and canals. Neck: Supple and non tender. No lymphadenopathy. Respiratory: Breathing easily and unlabored. Lungs are clear to auscultation. Cardiovascular: Regular rate and rhythm. No murmurs, gallops or rubs. Normal capillary refill. No edema. Gastrointestinal: Abdomen is soft, mild discomfort. Nondistended. Normal active bowel sounds. Mild right sided costovertebral angle tenderness with percussion. Neurological: Alert and oriented x3. No focal neurologic deficits. Discomfort with neck flexion, but cannot reproduce pain with palpation. Negative Kernig sign, Negative Brudzinski Skin: Warm and dry. Musculoskeletal: No pain with palpation of the neck. Full range of motion. No tenderness in palpation of the thoracic and lumbar spine. DIFFERENTIAL DIAGNOSIS: After history and physical exam, differential diagnosis was considered for a patient with headache. Would need to consider infectious causes such as sinusitis or meningitis, causes related to her ovarian cancer, other metabolic. Medical Decision Making Data Points Laboratory Hematology Test 07/19/18 02:52 07/19/18 04:40 Red Blood Count 3.55 M/uL (4.17-5.56) Mean Corpuscular Volume 105.2 fL (80.0-96.0) Mean Corpuscular Hemoglobin 36.3 pg (26.0-33.0) Mean Corpuscular Hemoglobin Concent 34.5 g/dL (32.0-36.0) Red Cell Distribution Width 14.2 % (11.5-14.5) Mean Platelet Volume 6.6 fL (7.2-11.1) Neutrophils (%) (Auto) 70.6 % (39.4-72.5) Lymphocytes (%) (Auto) 15.1 % (17.6-49.6) Monocytes (%) (Auto) 12.3 % (4.1-12.4) Eosinophils (%) (Auto) 1.5 % (0.4-6.7) Basophils (%) (Auto) 0.5 % (0.3-1.4) Nucleated RBC Relative Count (auto) 0.1 /100WBC Neutrophils # (Auto) 2.1 K/uL (2.0-7.4) Lymphocytes # (Auto) 0.5 K/uL (1.3-3.6) Monocytes # (Auto) 0.4 K/uL (0.3-1.0) Eosinophils # (Auto) 0.0 K/uL (0.0-0.5) Basophils # (Auto) 0.0 K/uL (0.0-0.1) Nucleated RBC Absolute Count (auto) 0.00 K/uL Peripheral Blood Smear No Y/N Erythrocyte Sedimentation Rate 10 mm/HOUR (0-30) Sodium Level 136 mmol/L (137-145) Potassium Level 4.2 mmol/L (3.5-5.0) Chloride Level 101 mmol/L (98-107) Carbon Dioxide Level 30 mmol/L (22-31) Blood Urea Nitrogen 10 mg/dl (7-18) Creatinine 0.80 mg/dl (0.52-1.04) Glomerular Filtration Rate Calc > 60.0 Random Glucose 93 mg/dl (75-110) Calcium Level 9.0 mg/dl (8.4-10.2) Total Bilirubin 1.2 mg/dl (0.2-1.3) Aspartate Amino Transf (AST/SGOT) 37 U/L (0-35) Alanine Aminotransferase (ALT/SGPT) 41 U/L (0-56) Alkaline Phosphatase 61 U/L (0-126) C-Reactive Protein 6.3 mg/dl (<1.0) Total Protein 6.2 g/dl (6.3-8.2) Albumin 3.4 g/dl (3.5-5.0) CSF Appearance Clear (CLEAR) CSF Color Colorless (COLORLESS) CSF WBC 0 /mm3 (0-5) CSF RBC 1 /mm3 CSF Glucose 55 mg/dl CSF Total Protein 33 mg/dl (15-50) Herpes Simplex Virus Source Csf Herpes Simplex Virus DNA (PCR) Not detected Haemophilus influenzae B Antigen Negative (NEGATIVE) Neisseria meningitidis A/Y Antigen Negative (NEGATIVE) Neisseria meningitidis C/W135 Ag Negative (NEGATIVE) N. meningitidis B/E.coli K1 Ag Negative (NEGATIVE) Group B Streptococcus Antigen Negative (NEGATIVE) Streptococcus pneumoniae Antigen Negative (NEGATIVE) Chemistry Test 07/19/18 02:52 07/19/18 04:40 White Blood Count 3.0 k/uL (4.5-11.0) Red Blood Count 3.55 M/uL (4.17-5.56) Hemoglobin 12.9 g/dL (12.0-16.0) Hematocrit 37.4 % (34.0-47.0) Mean Corpuscular Volume 105.2 fL (80.0-96.0) Mean Corpuscular Hemoglobin 36.3 pg (26.0-33.0) Mean Corpuscular Hemoglobin Concent 34.5 g/dL (32.0-36.0) Red Cell Distribution Width 14.2 % (11.5-14.5) Platelet Count 190 K/uL (150-450) Mean Platelet Volume 6.6 fL (7.2-11.1) Neutrophils (%) (Auto) 70.6 % (39.4-72.5) Lymphocytes (%) (Auto) 15.1 % (17.6-49.6) Monocytes (%) (Auto) 12.3 % (4.1-12.4) Eosinophils (%) (Auto) 1.5 % (0.4-6.7) Basophils (%) (Auto) 0.5 % (0.3-1.4) Nucleated RBC Relative Count (auto) 0.1 /100WBC Neutrophils # (Auto) 2.1 K/uL (2.0-7.4) Lymphocytes # (Auto) 0.5 K/uL (1.3-3.6) Monocytes # (Auto) 0.4 K/uL (0.3-1.0) Eosinophils # (Auto) 0.0 K/uL (0.0-0.5) Basophils # (Auto) 0.0 K/uL (0.0-0.1) Nucleated RBC Absolute Count (auto) 0.00 K/uL Peripheral Blood Smear No Y/N Erythrocyte Sedimentation Rate 10 mm/HOUR (0-30) Glomerular Filtration Rate Calc > 60.0 Calcium Level 9.0 mg/dl (8.4-10.2) Total Bilirubin 1.2 mg/dl (0.2-1.3) Aspartate Amino Transf (AST/SGOT) 37 U/L (0-35) Alanine Aminotransferase (ALT/SGPT) 41 U/L (0-56) Alkaline Phosphatase 61 U/L (0-126) C-Reactive Protein 6.3 mg/dl (<1.0) Total Protein 6.2 g/dl (6.3-8.2) Albumin 3.4 g/dl (3.5-5.0) CSF Appearance Clear (CLEAR) CSF Color Colorless (COLORLESS) CSF WBC 0 /mm3 (0-5) CSF RBC 1 /mm3 CSF Glucose 55 mg/dl CSF Total Protein 33 mg/dl (15-50) Herpes Simplex Virus Source Csf Herpes Simplex Virus DNA (PCR) Not detected Haemophilus influenzae B Antigen Negative (NEGATIVE) Neisseria meningitidis A/Y Antigen Negative (NEGATIVE) Neisseria meningitidis C/W135 Ag Negative (NEGATIVE) N. meningitidis B/E.coli K1 Ag Negative (NEGATIVE) Group B Streptococcus Antigen Negative (NEGATIVE) Streptococcus pneumoniae Antigen Negative (NEGATIVE) Microbiology Microbiology Date/Time Source Procedure Growth Status 07/19/18 04:40 Cerebrospinal Fluid Gram Stain - Final Complete 07/19/18 04:40 Cerebrospinal Fluid CSF Culture - Final No growth after 3 days Complete EKG/Imaging Imaging HEAD W/O CONTRAST HISTORY: Headache. COMPARISON: None. TECHNIQUE: Axial images were obtained from the skull base to the vertex without contrast. Sagittal and coronal reformats were performed. One of the following dose optimization techniques was utilized in the performance of this exam: Automated exposure control; adjustment of the mA and/or kV according to the patient's size; or use of an iterative reconstruction technique. Specific details can be referenced in the facility's radiology CT exam operational policy. CONTRAST: None. FINDINGS: Brain: No intracranial hemorrhage, mass, or edema. Ventricles and sulci: Sulci are normal. Ventricular size and configuration is normal. Osseous structures: Intact. Paranasal sinuses and mastoids: Normal. Orbits and soft tissues: Normal. IMPRESSION: 1. No acute intracranial abnormality. Report Dictated By: Anum Lazar at 07/19/2018 3:29 AM ED Course/Re-evaluation Clinical Indication for ER IV: Hydration, IV Access ED Course Initially treated with Toradol, Phenergan and Benadryl. She had very little improvement. Labs with a leukopenia, but no absolute. Otherwise normal. Because of continued headache pain in a patient that does not get headaches. After further discussion, the patient and I elected to go ahead with a lumbar puncture. This was normal with a normal pressure. Clear fluid. Gave Ativan 0.5mg after this and she was able to sleep and the pain in the head decreased. Labs unremarkable. Home with some Ativan to use as needed for stress and to help with the headache pain. Re-evaluation Procedure: Lumbar puncture. Indication: Headache. After verbal informed consent from patient explaining the risks including infection, bleeding, and neurologic damage, a lumbar puncture was performed after the patient was prepped and draped in the usual fashion. The back was anesthetized with 1% lidocaine. Approximately 4 cc of clear fluid was obtained. Opening pressure was normal. There were no complications. The procedure was performed by myself. Decision to Disposition Date: Jul 19, 2018 Decision to Disposition Time: 06:19 Depart Departure Latest Vital Signs Impression: Primary Impression: Headache Condition: Improved Disposition: HOME OR SELF-CARE Referrals: JOSÉ PÉREZ MD (PCP) New Scripts Lorazepam (ATIVAN) 0.5 Mg Tablet 0.5 MG PO Q6H PRN for HEADACHE, #8 TAB 0 Refills Prov: DEX JENNINGS MD 07/19/18 Patient Instructions: Acute Headache (ED) Additional Instructions: Uncertain cause of headache tonight. Suspect that this was partly due to the stress of your recent illness and hospit alizations. You can take your pain medicines that you have as needed. Rest and increase fluid intake. You can also take Ativan 0.5mg one every 6 hours as needed. Problem Qualifiers Primary Impression: Headache Headache type: unspecified Headache chronicity pattern: acute headache Intractability: not intractable Qualified Codes: R51 - Headache DEX JENNINGS MD Jul 19, 2018 02:24
[2018-07-19] MEDS ORDERED: diphenhydrAMINE 50 MG/ML VIAL IVP ONE (02:45)
[2018-07-19] MEDS ORDERED: PROMETHAZINE 25 MG/ML 1 ML AMP IVP ONE (02:45)
[2018-07-19] MEDS ORDERED: NS(*) 0.9% 500 ML BAG 500 ML IV ONE (02:45)
[2018-07-19] MEDS ORDERED: KETOROLAC 30 MG/ML VIAL IVP ONE (02:45)
[2018-07-19 03:08] LABS: PLATELET COUNT, AUTOMATED 190 K/uL (150-450)
--- NOTE | 2018-07-19 03:38 | RADIOLOGY IMAGING REPORT ---
FACILITY: [facility] - [place], [place] PATIENT NAME: Laverne Mcadams : 1965 MR: [id number] V: [id number] EXAM DATE: ORDERING PHYSICIAN: DEX JENNINGS TECHNOLOGIST: Location: [facility] [place] Patient: Laverne Mcadams : 1965 Visit/Account:[id number] Date of Sevice: 07/19/2018 HEAD W/O CONTRAST HISTORY: Headache. COMPARISON: None. TECHNIQUE: Axial images were obtained from the skull base to the vertex without contrast. Sagittal an d coronal reformats were performed. One of the following dose optimization techniques was utilized in the performance of this exam: Autom ated exposure control; adjustment of the mA and/or kV according to the patient's size; or use of an i terative reconstruction technique. Specific details can be referenced in the facility's radiology CT exam operational policy. CONTRAST: None. FINDINGS: Brain: No intracranial hemorrhage, mass, or edema. Ventricles and sulci: Sulci are normal. Ventricular size and configuration is normal. Osseous structures: Intact. Paranasal sinuses and mastoids: Normal. Orbits and soft tissues: Normal. IMPRESSION: 1. No acute intracranial abnormality. Report Dictated By: Anum Lazar at 07/19/2018 3:29 AM Report E-Signed By: Anum Lazar at 07/19/2018 3:35 AM WSN:[id number]
[2018-07-19] MEDS ORDERED: LORazepam 2 MG/ML VIAL IVP ONE (04:20)
[2018-07-19] MEDS ORDERED: LORA-1455 PO (06:20)
[2018-07-19] MEDS ORDERED: LORazepam 0.5 MG TAB PO ONE (06:20)
[2018-07-19 06:30] VITALS: BP 110/73
== END 2018-07-19 06:49 | disposition home or self-care (01) ==
LOC: ER 02:51
DX: R51 Headache (principal)
CPT/HCPCS: 62270; 70450; 82945; 84157; 85025; 85651; 86140; 87070; 87205; 87529; 87899; 89050; 96374; 96375; 99285; J1200; J1885; J2060; J2550; J7040; 82040; 82247; 82310; 82374; 82435; 82565; 82947; 84075; 84132; 84155; 84295; 84450; 84460; 84520

== ENCOUNTER 2018-08-22 01:40 | Day surgery (SDC) | payer OTHER ==
[2018-07-17 12:13] VITALS: Ht 162.6 cm; Wt 49.0 kg
--- NOTE | 2018-08-21 22:21 | HISTORY AND PHYSICAL ---
DATE OF ADMISSION: August 22, 2018 CHIEF COMPLAINT Right hydronephrosis secondary to midureteral partial obstruction. HISTORY OF PRESENT ILLNESS Patient is a 53-year-old white female who was found to have right hydronephrosis in early July, after presenting with a partial bowel obstruction. At that time, she was taken to the operating room and underwent right retrograde pyelogram, which showed some ureteral narrowing of approximately 1 cm in length just above the iliac vessels, which appeared to be most consistent with an external compression. At that time, she underwent right internal double-J ureteral stent placement with a 6-Kyrgyz x 24 cm Percuflex stent. She had a followup CT scan performed on 10 August, which showed a resolution of her hydronephrosis. When seen in the clinic, she was complaining of significant stent discomfort with gross hematuria, and these symptoms were greatly limiting her quality of life. She stated she could no longer exercise or run as she had before. She was also having significant overactive bladder symptoms, which were refractory to anticholinergics. At this point, we had an extensive discussion concerning the options at this point. It appeared to me that her ureter was significantly obstructed from a partial obstruction, likely related to fibrous adhesions or recurrent tumor. The patient is currently on Avastin, and this would increase her risk for poor wound healing for any type of definitive surgical procedure, either done open, laparoscopically or endoscopically. Discussion of a simple balloon dilatation was also undertaken, but this would be unlikely to be successful if this was truly an extrinsic factor causing her obstruction. The other option would be to just simply remove the stent and follow her clinically. In the worst-case scenario, this partial obstruction would progress and result in significant decreased renal function on this right side. We did discuss she has a fairly stiff stent in the right ureter, and perhaps by replacing this with a smaller, more supple ureteral stent, we would significantly alleviate her symptoms. We therefore have decided to proceed with this option at this time. PAST MEDICAL HISTORY 1. Stage IIIC ovarian cancer with metastatic lesions to liver, status post several rounds of chemotherapy. 2. Lymphocytic colitis. 3. Hypertension with . PAST SURGICAL HISTORY 1. EGD in 2004. 2. Total abdominal hysterectomy with BSO and omentectomy with partial liver resection, December 2014, for ovarian cancer. 3. Exploratory laparotomy with resection of liver metastases in mid 2016. 4. Knee surgery x2. 5. Colonoscopy x2. 6. Tonsillectomy. 7. Intraperitoneal port placement and removal for chemotherapy. CURRENT MEDICATIONS 1. Avastin. 2. Cyclophosphamide. 3. Vitamin D. 4. Zofran. 5. Pitavastatin. 6. Ativan. ALLERGIES GLUTEN. 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 She has three children and is . FAMILY HISTORY Noncontributory. REVIEW OF SYSTEMS Patient denies bleeding disorder, chronic headaches, chest pain, productive cough, fever, chills, or change in vision. PHYSICAL EXAMINATION GENERAL: Patient is a thin white female in no acute distress. HEENT: Normocephalic, atraumatic. CHEST: Clear to auscultation bilaterally. CARDIOVASCULAR: Regular rate and rhythm. ABDOMEN: Soft, nontender. No masses are palpated. GENITOURINARY: Deferred to the OR. EXTREMITIES: Without clubbing, cyanosis, or edema. NEUROLOGIC: Nonfocal. IMPRESSION A 53-year-old white female with a history of metastatic ovarian cancer, now with a mid right ureteral partial obstruction, likely from extrinsic compression, who currently has an indwelling ureteral stent with resolution of her hydronephrosis. She is having significant ureteral stent discomfort, greatly limiting her quality of life. PLAN We will perform anesthetic cystoscopy with removal of the current stent and replacement with a smaller, more supple ureteral stent. We are hopeful that this will greatly alleviate her ureteral stent discomfort symptoms as well as still being functional enough to provide drainage of her right system. STIVEN
[~2018-08-22] VITALS: Ht 162.6 cm; Wt 49.0 kg
[~2018-08-22 01:40] MED LIST changes: +LORA-1455 PO
[2018-08-22] MEDS ORDERED: LEVOFLOXACIN/D5W*500 MG/100 ML 100 ML IVPB ONE (11:30)
[2018-08-22] MEDS ORDERED: FAMOTIDINE 20 MG TAB PO ONE (11:30)
[2018-08-22] MEDS ORDERED: LIDOCAINE/SOD BICARB 8.4% SYR ID ONE (11:30)
[2018-08-22] MEDS ORDERED: MIDAZOLAM 2 MG/2 ML VIAL IVP PRN (11:30)
[2018-08-22] MEDS ORDERED: NORMOSOL R SOLN(*) 1000 ML BAG 1,000 ML IV PRN (11:30)
[2018-08-22 12:04] VITALS: BP 115/78
[2018-08-22] MEDS ORDERED: DEXAMETHASONE SOD PHOS 10MG/ML ONE (12:22)
[2018-08-22] MEDS ORDERED: KETAMINE HCL-NS 50 MG/5 ML SYR ONE (12:22)
[2018-08-22] MEDS ORDERED: LIDOCAINE MPF 1% 5 ML VIAL ONE (12:22)
[2018-08-22] MEDS ORDERED: ONDANSETRON 4 MG/2 ML VIAL ONE (12:22)
[2018-08-22] MEDS ORDERED: fentaNYL CITR 100 MCG/2 ML AMP ONE (12:22)
[2018-08-22] MEDS ORDERED: PROPOFOL EMUL(*) 10MG/ML 20 ML 20 ML ONE (12:22)
[2018-08-22] MEDS ORDERED: IOPAMIDOL-200 50 ML VIAL IS ONE (13:19)
[2018-08-22] MEDS ORDERED: BELLADONNA ALK/OPIUM 60MG SUPP PR ONE (13:19)
[2018-08-22] MEDS ORDERED: KETOROLAC 30 MG/ML VIAL ONE (13:39)
[2018-08-22 14:01] VITALS: BP 95/61
[2018-08-22] MEDS ORDERED: TAMS0.4C25 PO (14:18)
[2018-08-22] MEDS ORDERED: OXYB10TA21 PO (14:19)
[2018-08-22] MEDS ORDERED: PHEN200T32 PO (14:19)
[2018-08-22 14:30] VITALS: BP 103/67
[2018-08-22 14:35] VITALS: BP 111/81
[2018-08-22 14:37] VITALS: BP 111/87
--- NOTE | 2018-08-22 14:57 | OPERATIVE REPORT 1 ---
EVENT DATE: August 22, 2018 SURGEON: Yaw Luther MD ANESTHESIOLOGIST: Christopher Mandujano MD ANESTHESIA: General. PREOPERATIVE DIAGNOSIS Right indwelling ureteral stent secondary to right mid ureteral partial obstruction, likely from extrinsic compression. POSTOPERATIVE DIAGNOSIS Right indwelling ureteral stent secondary to right mid ureteral partial obstruction, likely from extrinsic compression. PROCEDURES PERFORMED 1. Cystoscopy. 2. Right double J stent removal. 3. Right double J stent replacement. ESTIMATED BLOOD LOSS Minimal. IV FLUIDS Crystalloids. DRAINS 5-Guatemalan x 24 cm Polaris Ultra Microvasive stent on right. COMPLICATIONS None. CONDITION The patient was taken to recovery room awake and in stable condition. STATEMENT OF MEDICAL NECESSITY The patient is a 53-year-old white female who was noted to have right hydronephrosis, which was found to be secondary to a 1 cm area of ureteral narrowing just above the iliac vessels, likely from extrinsic compression. She underwent right stent placement with a 6-Guatemalan x 24 cm Percuflex Plus stent approximately six weeks ago. Followup CT scan showed resolution of her hydronephrosis. However, she has had significant ureteral stent discomfort, which has greatly affected her quality of life. Options were discussed. She is now returning to the operating room for plans of exchange of a smaller diameter softer stent. DESCRIPTION OF OPERATION PERFORMED The patient was brought to the operating room and after general anesthetic was obtained, she was placed in the dorsal lithotomy position and prepped and draped in the usual sterile manner. Anesthetic cystoscopy was performed with the 21- Guatemalan rigid Dickey sheath and a 30-degree lens. She had a normal-appearing urethra without evidence of stricture or bladder neck inflammatory polyp. Upon entering the bladder, the stent was seen emanating from the right ureteral orifice. There was a mild biofilm associated with the distant stent but no encrustation. The stent was grasped at its distal end and brought out through the meatus. The lumen was then cannulated with a double-end floppy wire, which advanced up to the upper pole of calyx under fluoroscopic imaging. The right stent was removed and this wire was backloaded into the cystoscope using a 6- Guatemalan open-end access catheter and then this wire was used to place a 5-Guatemalan x 24 cm Polaris Ultra Microvasive stent. On removing of the wire, she was noted to have good curling in the renal pelvis by fluoroscopy and good curling in the bladder by direct vision. The patient's bladder was drained through the cystoscopic sheath. She was given a B and O suppository, awakened in the operating room and taken to the recovery area in stable condition. PLAN We will allow the patient to be discharged home today on Ditropan, Pyridium and Flomax as needed. We will plan to see her in the Urology Clinic in 2-4 weeks with a followup ultrasound to ensure adequate upper tract drainage and to check her symptoms. STVIEN
--- NOTE | 2018-08-22 15:30 | RADIOLOGY IMAGING REPORT ---
FACILITY: [facility] - [place] PATIENT NAME: Laverne Mcadams : 1965 MR: [id number] V: [id number] EXAM DATE: ORDERING PHYSICIAN: MICHAEL SALES TECHNOLOGIST: [place] [facility] [place]ne Mc[place] : 1965 Visit/Account:[id number] Date of Sevice: 08/22/2018 C-ARM FLUORO 1 HR HISTORY: HEMATURIA/STONE Intraoperative films FINDINGS: Study demonstrates cannulization with wire manipulation of the right ureter. Placement of a right ur eteral stent. IMPRESSION: Intraoperative films as described. Please refer to procedural note for complete elucidation. Fluoroscopic time of 0.6 minutes. AK 2.3mGy Report Dictated By: Ronald Silverman MD at 08/22/2018 3:25 PM Report E-Signed By: Ronald Silverman MD at 08/22/2018 3:27 PM WSN:[email or web address]
== END 2018-08-22 15:00 | disposition home or self-care (01) ==
LOC: OR 01:40
PROVIDERS: ATTEND Urology
DX: N13.1 Hydronephrosis with ureteral stricture, not elsewhere classified (principal); Z85.43 Personal history of malignant neoplasm of ovary
CPT/HCPCS: 52332; 76000; 81001; 87088; J1100; J1885; J1956; J2001; J2405; J2704; C2671; J3010; J3490; Q9966

== ENCOUNTER → 2018-09-02 | Outpatient (CLI) | payer OTHER ==
[2018-07-17 12:13] VITALS: BMI 21.4
[~2018-09-02] MED LIST changes: +OXYB10TA21 PO; +PHEN200T32 PO; +TAMS0.4C25 PO
== END ==
LOC: LAB 16:35
PROVIDERS: ATTEND Urology
DX: N39.0 Urinary tract infection, site not specified (principal); R82.79 Other abnormal findings on microbiological examination of urine
CPT/HCPCS: 81001; 87088

== ENCOUNTER → 2018-09-07 | Outpatient (REF) | payer OTHER ==
[2018-07-17 12:13] VITALS: BMI 21.4
== END ==
LOC: LAB 09:57
PROVIDERS: ATTEND Emergency Medicine
DX: Z02.9 Encounter for administrative examinations, unspecified (principal)

== ENCOUNTER → 2018-09-13 | Outpatient (CLI) | payer OTHER ==
[2018-07-17 12:13] VITALS: BMI 21.4
--- NOTE | 2018-09-13 15:52 | RADIOLOGY IMAGING REPORT ---
FACILITY: [facility] - [place] PATIENT NAME: Laverne Mcadams : 1965 MR: [id number] V: [id number] EXAM DATE: ORDERING PHYSICIAN: MICHAEL SALES TECHNOLOGIST: Location: [facility] Patient: Laverne Mcadams : 1965 Visit/Account:[id number] Date of Sevice: 09/13/2018 KIDNEYS EXAMINATION: Renal ultrasound. History: Stent in right kidney, history of ovarian cancer COMPARISON STUDIES: CT on pelvis July 17, 2018 FINDINGS: Kidneys: Right kidney- 11.16 x 3.7 x 5 cm. There is a mild right hydronephrosis although improved when compared to the prior CT. Resistive inde x on the right is 0.58 Left kidney- 10.8 x 4.2 x 4.7 cm. No evidence of hydronephrosis. Resistive index 0.59 Uniform and symmetric blood flow in each kidney by Doppler ultrasound. Bladder: Prevoid volume 139 mL. Post void residual 18 mL.. Bilateral ureteral jets are identified. The distal portion of the ureteral stent is identified within the right-sided the bladder. Abdominal aorta and IVC: Aorta and IVC are patent by Doppler ultrasound. IMPRESSION: There is a mild right hydronephrosis although improved when compared to the recent CT scan No evidence of left hydronephrosis Report Dictated By: Lainey Mendez MD at 09/13/2018 3:44 PM Report E-Signed By: Lainey Mendez MD at 09/13/2018 3:47 PM WSN:[email or web address]
== END ==
LOC: US 00:41
PROVIDERS: ATTEND Urology
DX: N13.39 Other hydronephrosis (principal)
CPT/HCPCS: 76705

== ENCOUNTER → 2018-11-08 | Outpatient (CLI) | payer OTHER ==
[2018-07-17 12:13] VITALS: BMI 21.4
--- NOTE | 2018-11-08 09:12 | RADIOLOGY IMAGING REPORT ---
FACILITY: [facility] PATIENT NAME: Laverne Mcadams : 1965 MR: [id number] V: [id number] EXAM DATE: [id number] ORDERING PHYSICIAN: MICHAEL SALES TECHNOLOGIST: Location: [facility] Patient: Laverne Mcadams : 1965 Visit/Account:[id number] Date of Sevice: 11/08/2018 KIDNEYS COMPARISON: September 13, 2018. HISTORY: Right renal stent. Right hydronephrosis status post stent placement. TECHNIQUE: Ultrasound of the kidneys and bladder was performed. Color Doppler images of the aorta a nd IVC were also obtained. FINDINGS: RIGHT KIDNEY: Normal size, 11.4 cm bipolar length. Normal echotexture. No shadowing calculus, per inephric fluid or mass. There is mild pelvocaliectasis without significant change compared to the pr evious exam. The proximal margin of the stent is seen is an echogenic nodular focus in the right roldan al pelvis. Normal intrarenal resistive index of 0.60. LEFT KIDNEY: Normal size, 10.2 cm bipolar length. Normal echotexture. No hydronephrosis, calculus or perinephric fluid. No appreciable masses. Normal intrarenal resistive index of 0.65. BLADDER: Unremarkable but almost empty, estimated volume only 35 mL. Bilateral ureteral jets were d ocumented during the study.. No visible wall thickening, mass, or calculus. The distal end of the s tent is in the right bladder. ABDOMINAL AORTA AND IVC: Patent by Doppler ultrasound. IMPRESSION: 1. Mild right pelvocaliectasis, very similar to September 13, 2018. The right renal stent extends fro m the renal pelvis to the right bladder. 2. Normal left kidney and nearly empty bladder. Report Dictated By: Terrence Cyr at 11/08/2018 9:04 AM Report E-Signed By: Terrence Cyr at 11/08/2018 9:07 AM WSN:[email or web address]
== END ==
LOC: US 01:25
PROVIDERS: ATTEND Urology
DX: N13.30 Unspecified hydronephrosis (principal)
CPT/HCPCS: 76705

== ENCOUNTER 2018-11-25 01:16 | Day surgery (SDC) | payer OTHER ==
[2018-07-17 12:13] VITALS: Ht 162.6 cm; Wt 50.8 kg
--- NOTE | 2018-11-22 12:52 | HISTORY AND PHYSICAL ---
DATE OF ADMISSION: November 25, 2018 CHIEF COMPLAINT Right indwelling ureteral stent secondary to mid-ureteral partial obstruction. HISTORY OF PRESENT ILLNESS The patient is a 53-year-old white female who was found to have right hydronephrosis in early July after proceeding with a partial bowel obstruction. At that time, she was taken to the operating room and underwent a retrograde pyelogram which showed approximately 1 cm area of narrowing just above the iliac vessels. She underwent placement of a 6 x 24 cm Percuflex stent. A follow up CT scan showed resolution of her hydronephrosis. She was subsequently taken to the operating room on August 22, 2018 and underwent stent exchange. This time she was left with a 5-Khmer x 24 cm Polaris Ultra stent. This was done secondary to the significant stent discomfort she was having with the stiffer Percuflex Plus. When seen in the Urology clinic in follow up, she was doing significantly better as far as her stent discomfort. Her creatinine in early November was 0.9. A follow up ultrasound was obtained on the 08 of November which showed a mild right pelvis caliectasis similar to her ultrasound September 13, 2018. These findings were discussed and now she is being returned to the operating room for planned double-J ureteral stent exchange. PAST MEDICAL HISTORY * Stage 3C ovarian cancer with metastatic lesion to liver, status post chemotherapy. * Lymphocytic colitis. * Hypertension with . PAST SURGICAL HISTORY * EGD 2004. * Total abdominal hysterectomy with BSO and omentectomy with partial liver resection December 2014. * Exploratory laparotomy with resection of liver mets mid-2016. * Knee surgery times 2. * Colonoscopy times 2. * Tonsillectomy. * Intracranial port placement and removal with chemotherapy. * Cystoscopy with right retrograde and double-J stent placement on right July 18, 2018. * Stent exchange on right August 22, 2018. ALLERGIES Gluten CURRENT MEDICATIONS * Cyclophosphamide. * Vitamin D. * Zofran. * Ativan. * Avastin. * Pitavastatin. SOCIAL HISTORY The patient lives in [place], [place] as well as [place]. She is with three children and is employed at a medical [employer] . FAMILY HISTORY Noncontributory. REVIEW OF SYSTEMS The patient denies chest pain, shortness of breath, productive cough, fever, chills, chronic headaches. PHYSICAL EXAMINATION GENERAL: Patient is a thin white female in no acute distress. HEENT: Normocephalic, atraumatic. CHEST: Clear to auscultation bilaterally. CARDIOVASCULAR: Regular rate and rhythm. ABDOMEN: Soft, nontender. No masses are palpated. GENITOURINARY: Deferred to the OR. EXTREMITIES: Without clubbing, cyanosis, or edema. NEUROLOGIC: Nonfocal. IMPRESSION This is a 53-year-old white female with a right mid-ureteral obstruction likely secondary to extrinsic compression from prior ovarian cancer treatment with current indwelling ureteral stent for 3 months. PLAN We will perform anesthetic cystoscopy with right stent exchange. MTDD
[~2018-11-25] VITALS: Ht 162.6 cm; Wt 50.8 kg
[2018-11-25 09:34] VITALS: BP 111/73
[2018-11-25] MEDS ORDERED: LIDOCAINE MPF 1% 5 ML VIAL ONE (10:35)
[2018-11-25] MEDS ORDERED: PROPOFOL EMUL(*) 10MG/ML 20 ML 60 ML ONE (10:35)
[2018-11-25] MEDS ORDERED: IOPAMIDOL-200 50 ML VIAL IS ONE (11:16)
[2018-11-25] MEDS ORDERED: BELLADONNA ALK/OPIUM 60MG SUPP PR ONE (11:20)
[2018-11-25 11:40] VITALS: BP 96/69
[2018-11-25] MEDS ORDERED: FAMOTIDINE 20 MG TAB PO ONE (11:40)
[2018-11-25] MEDS ORDERED: MIDAZOLAM 2 MG/2 ML VIAL IVP PRN (11:40)
[2018-11-25] MEDS ORDERED: ceFAZolin(*) 1 GM VIAL 1 GM in NS(*) 0.9% 100 ML MINI-BAG 100 ML IVPB ONE (11:40)
[2018-11-25] MEDS ORDERED: NORMOSOL R SOLN(*) 1000 ML BAG 1,000 ML IV PRN (11:40)
[2018-11-25] MEDS ORDERED: LIDOCAINE/SOD BICARB 8.4% SYR ID ONE (11:40)
[2018-11-25 11:55] VITALS: BP 88/67
[2018-11-25 12:00] VITALS: BP_SYST 105; BP_SYST 112; BP_DIAS 64; BP_DIAS 72
--- NOTE | 2018-11-25 12:00 | RADIOLOGY IMAGING REPORT ---
FAC[place] [facility] [place] NAME: Laverne Mcadams : 1965 MR: [id number] V: [id number] EXAM DATE: [id number] ORDERING PHYSICIAN: MICHAEL SALES TECHNOLOGIST: Location: [facility] [place] Patient: Laverne Mcadams : 1965 Visit/Account:[id number] Date of Sevice: 11/25/2018 EXAMINATION: OR fluoroscopy films abdomen 10 views HISTORY: Stent exchange. COMPARISON: 08/22/2018. FLUOROSCOPY TIME: 21 seconds. DOSE: Cumulative dose (Ka,r) was 7.5 mGy. FINDINGS: These images are not labeled right or left. There is a ureteral stent present, presumed t o be on the right. There is retrograde placement of a wire into the ureter, with ureteral stent exch alex in progress. IMPRESSION: Ureteral stent exchange in progress. Please see the performing physician's notes for full details. Report Dictated By: Veronica Adan MD at 11/25/2018 11:55 AM Report E-Signed By: Veronica Adan MD at 11/25/2018 11:57 AM WSN:[id number]
[2018-11-25 12:01] VITALS: BP 112/75
[2018-11-25] MEDS ORDERED: PHENAZOPYRIDINE 200 MG TAB PO ONE (12:15)
--- NOTE | 2018-11-25 12:23 | OPERATIVE REPORT 1 ---
EVENT DATE: November 25, 2018 SURGEON: Yaw Luther MD ANESTHESIOLOGIST: Christopher Mandujano MD ANESTHESIA: General. PREOPERATIVE DIAGNOSIS Indwelling right double-J ureteral stents secondary to right intraureteral partial obstruction. POSTOPERATIVE DIAGNOSIS Indwelling right double-J ureteral stents secondary to right intraureteral partial obstruction. PROCEDURE PERFORMED 1. Cystoscopy. 2. Grasping and removal of right double-J ureteral stent. 3. Replacement of right double-J ureteral stent. ESTIMATED BLOOD LOSS Minimal. IV FLUIDS Crystalloids. DRAINS 5-Belgian x 24 cm Polaris microinvasive stent on right. COMPLICATIONS None. CONDITION Patient was taken to the recovery room awake and in stable condition. STATEMENT OF MEDICAL NECESSITY Patient is a 53-year old white female who was found to have right hydroureteronephrosis nephrosis in early July and underwent subsequent retrograde, which showed an approximate 1 cm area of narrowing just above the iliac vessels. She subsequently underwent placement of a 6 x 24 Percuflex stent and subsequently had that changed to a 5-Belgian x 24 Polaris on August 22. She is now being brought back to the operating room for scheduled stent exchange. DESCRIPTION OF PROCEDURE Patient was brought to the operating room. After general anesthetic was obtained, she was placed in the dorsal lithotomy position and prepped and draped in the usual sterile manner. Anesthetic cystoscopy was performed with the 21- Belgian Dickey sheath with a 30-degree lens. She had a normal appearing urethra without evidence of stricture or bladder neck inflammatory polyps. Upon entering her bladder, the stent was seen emanating from the right ureteral orifice. There was some very mild encrustation along the stent with a moderate amount of bile film appearing material. The stent was grasped at its distal end and brought out the meatus. The stent was cannulated with a double floppy sensor wire, which was advanced up the lumen of the stent under fluoroscopic imaging through the upper pole of calyx. The stent was then removed. The wire was back-loaded into the cystoscopic sheath and then used to place a 5-Belgian x 24 cm Polaris stent. The wire was removed. She was noted to have good curling in the renal pelvis by fluoroscopy and good curling in the bladder by direct vision. The patient's bladder was drained through the cystoscopic sheath. A B and O suppository was given at the conclusion of the case. She was awakened in the operating room and taken to the recovery area in stable condition. PLAN Allow patient to be discharged home today on her previous medicines on a p.r.n. basis. We will plan to see in the Urology Clinic in approximately two to three months with a followup imaging test to evaluate the right upper system and then to schedule stent exchange or further investigation. STIVEN
== END 2018-11-25 12:40 | disposition home or self-care (01) ==
LOC: OR 01:16
PROVIDERS: ATTEND Urology
DX: N13.2 Hydronephrosis with renal and ureteral calculous obstruction (principal); N13.5 Crossing vessel and stricture of ureter without hydronephrosis
CPT/HCPCS: 52332; 76000; 87088; C1769; C2617; J0690; J2001; J2704; Q9966

== ENCOUNTER 2018-12-23 19:04 | Observation (INO) | payer OTHER ==
[2018-07-17 12:13] VITALS: Ht 162.6 cm; Wt 55.0 kg
[~2018-12-23] VITALS: Ht 162.6 cm; Wt 55.0 kg
--- NOTE | 2018-12-23 19:20 | ER Report ---
History and Physical Time Seen By MD: 19:20 HPI/ROS CHIEF COMPLAINT: abdominal pain HISTORY OF PRESENT ILLNESS: This is a 53 year old female. History of ovarian cancer as well bowel obstructions. Today had a small bowel movement in the morning, then increasing pain through the day. Not passing gas or stools since the morning. Worsening pain and firm area in the right lower abdomen. Nausea present. No fevers. Normal urination. Allergies: Coded Allergies: gluten (Verified Allergy, Mild, 11/21/18) Feels better not eating Gluten methimazole (Verified Allergy, Unknown, Hives/Rash, 11/21/18) Home Meds Active Scripts Ondansetron (ZOFRAN ODT) 4 Mg Tab.rapdis, 4 MG PO Q6-8H PRN for NAUSEA, #30 TAB.BRIDGET Prov:GABY DANIEL MD 05/05/18 Reported Medications Ibuprofen (IBUPROFEN) 400 Mg Tablet, 1 TAB PO Q6H PRN for PAIN, #20 TAB 07/18/18 Pitavastatin Calcium (LIVALO) 4 Mg Tablet, 4 MG PO QDAY 05/04/18 Cyclophosphamide (Cyclophosphamide) 50 Mg Capsule, 50 MG PO QDAY, CAPSULE 01/16/18 Cholecalciferol (Vitamin D3) (VITAMIN D) 1,000 Unit Capsule, 1000 UNIT PO QDAY, CAPSULE DAILY FOR 2 WEEKS A MONTH 01/16/18 Bevacizumab (AVASTIN) 100 Mg/4 Ml Injs, 100 MG IV Q3WK 01/16/18 Discontinued Reported Medications Phenazopyridine Hcl (PHENAZOPYRIDINE HCL) 200 Mg Tablet, 200 MG PO TID PRN for BLADDER SPASMS, TAB 08/22/18 Reviewed Nurses Notes: Yes Hx Smoking: No Smoking Status: Never Smoker Hx Substance Use Disorder: No Hx Alcohol Use: Yes (INFREQUENTLY) Constitutional Vital Sign - Last 24 Hours 12/23/18 12/23/18 12/23/18 12/23/18 19:13 19:16 19:30 19:34 Temp 98.1 Pulse 73 73 Resp 17 B/P (MAP) 148/91 148/91 (110) 135/90 (105) Pulse Ox 100 86 O2 Delivery Room Air 12/23/18 12/23/18 12/23/18 12/23/18 20:00 20:04 20:59 21:00 Pulse 69 68 B/P (MAP) 125/96 (106) 115/55 (75) Pulse Ox 86 92 O2 Delivery Nasal Cannula O2 Flow Rate 1 12/23/18 12/23/18 12/23/18 12/23/18 21:00 21:18 21:29 21:30 Pulse 65 B/P (MAP) 115/55 (75) 105/70 (82) Pulse Ox 91 O2 Delivery Nasal Cannula O2 Flow Rate 1.0 1 12/23/18 21:35 Pulse 59 Pulse Ox 94 Intake and Output 12/23/18 12/23/18 12/24/18 15:00 23:00 07:00 Intake Total 1000 ml Balance 1000 ml Physical Exam General Appearance: The patient is alert. No acute distress. Eyes: Pupils are equal, round. No pallor, injection or icterus. ENT: Mucous membranes are moist. Respiratory: Lungs are clear to auscultation. Cardiovascular: Regular rate and rhythm. No murmurs, gallops or rubs. Normal capillary refill. Gastrointestinal: Abdomen has firm area in right lower, some distention. Painful to palpation in this area. Hyperactive bowel wounds. Neurological: Alert and oriented x3. Skin: Warm and dry. No rashes. DIFFERENTIAL DIAGNOSIS: After history and physical exam, differential diagnosis was considered for abdominal pain with distention concerning for recurrent bowel obstruction Medical Decision Making Data Points Result Diagram: 12/23/18194812/23/181948 Laboratory Hematology Test 12/23/18 19:14 12/23/18 19:49 Urine Color Yellow Urine Clarity Slightly-cloudy Urine pH 6.0 pH (4.8-9.5) Urine Specific [place] 1.019 Urine Protein 100 mg/dL (NEGATIVE) Urine Glucose (UA) Negative mg/dL (NEGATIVE) Urine Ketones Trace mg/dL (NEGATIVE) Urine Blood Large (NEGATIVE) Urine Nitrite Negative (NEGATIVE) Urine Bilirubin Negative (NEGATIVE) Urine Urobilinogen Negative mg/dL (0.2-1.9) Urine Leukocyte Esterase Trace (NEGATIVE) Urine RBC 106 /HPF (0-2/HPF) Urine WBC 17 /HPF (0-5/HPF) Urine Squamous Epithelial Cells Many /LPF (</=FEW) Urine Bacteria Few /HPF (NONE-FEW) Urine Mucus Few /HPF (NONE-FEW) Red Blood Count 4.39 M/uL (4.17-5.56) Mean Corpuscular Volume 102.5 fL (80.0-96.0) Mean Corpuscular Hemoglobin 35.7 pg (26.0-33.0) Mean Corpuscular Hemoglobin Concent 34.8 g/dL (32.0-36.0) Red Cell Distribution Width 14.1 % (11.5-14.5) Mean Platelet Volume 6.5 fL (7.2-11.1) Neutrophils (%) (Auto) 71.7 % (39.4-72.5) Lymphocytes (%) (Auto) 17.7 % (17.6-49.6) Monocytes (%) (Auto) 7.2 % (4.1-12.4) Eosinophils (%) (Auto) 2.5 % (0.4-6.7) Basophils (%) (Auto) 0.9 % (0.3-1.4) Nucleated RBC Relative Count (auto) 0.2 /100WBC Neutrophils # (Auto) 2.8 K/uL (2.0-7.4) Lymphocytes # (Auto) 0.7 K/uL (1.3-3.6) Monocytes # (Auto) 0.3 K/uL (0.3-1.0) Eosinophils # (Auto) 0.1 K/uL (0.0-0.5) Basophils # (Auto) 0.0 K/uL (0.0-0.1) Nucleated RBC Absolute Count (auto) 0.01 K/uL Sodium Level 133 mmol/L (137-145) Potassium Level 4.3 mmol/L (3.5-5.0) Chloride Level 93 mmol/L (98-107) Carbon Dioxide Level 27 mmol/L (22-31) Blood Urea Nitrogen 14 mg/dl (7-18) Creatinine 0.80 mg/dl (0.52-1.04) Glomerular Filtration Rate Calc > 60.0 Random Glucose 88 mg/dl (75-110) Lactate 1.9 mmol/L (0.7-2.1) Calcium Level 10.6 mg/dl (8.4-10.2) Total Bilirubin 1.4 mg/dl (0.2-1.3) Aspartate Amino Transf (AST/SGOT) 57 U/L (0-35) Alanine Aminotransferase (ALT/SGPT) 53 U/L (0-56) Alkaline Phosphatase 88 U/L (0-126) Total Protein 8.0 g/dl (6.3-8.2) Albumin 4.9 g/dl (3.5-5.0) Chemistry Test 12/23/18 19:14 12/23/18 19:49 Urine Color Yellow Urine Clarity Slightly-cloudy Urine pH 6.0 pH (4.8-9.5) Urine Specific [place] 1.019 Urine Protein 100 mg/dL (NEGATIVE) Urine Glucose (UA) Negative mg/dL (NEGATIVE) Urine Ketones Trace mg/dL (NEGATIVE) Urine Blood Large (NEGATIVE) Urine Nitrite Negative (NEGATIVE) Urine Bilirubin Negative (NEGATIVE) Urine Urobilinogen Negative mg/dL (0.2-1.9) Urine Leukocyte Esterase Trace (NEGATIVE) Urine RBC 106 /HPF (0-2/HPF) Urine WBC 17 /HPF (0-5/HPF) Urine Squamous Epithelial Cells Many /LPF (</=FEW) Urine Bacteria Few /HPF (NONE-FEW) Urine Mucus Few /HPF (NONE-FEW) White Blood Count 3.9 k/uL (4.5-11.0) Red Blood Count 4.39 M/uL (4.17-5.56) Hemoglobin 15.7 g/dL (12.0-16.0) Hematocrit 45.0 % (34.0-47.0) Mean Corpuscular Volume 102.5 fL (80.0-96.0) Mean Corpuscular Hemoglobin 35.7 pg (26.0-33.0) Mean Corpuscular Hemoglobin Concent 34.8 g/dL (32.0-36.0) Red Cell Distribution Width 14.1 % (11.5-14.5) Platelet Count 301 K/uL (150-450) Mean Platelet Volume 6.5 fL (7.2-11.1) Neutrophils (%) (Auto) 71.7 % (39.4-72.5) Lymphocytes (%) (Auto) 17.7 % (17.6-49.6) Monocytes (%) (Auto) 7.2 % (4.1-12.4) Eosinophils (%) (Auto) 2.5 % (0.4-6.7) Basophils (%) (Auto) 0.9 % (0.3-1.4) Nucleated RBC Relative Count (auto) 0.2 /100WBC Neutrophils # (Auto) 2.8 K/uL (2.0-7.4) Lymphocytes # (Auto) 0.7 K/uL (1.3-3.6) Monocytes # (Auto) 0.3 K/uL (0.3-1.0) Eosinophils # (Auto) 0.1 K/uL (0.0-0.5) Basophils # (Auto) 0.0 K/uL (0.0-0.1) Nucleated RBC Absolute Count (auto) 0.01 K/uL Glomerular Filtration Rate Calc > 60.0 Lactate 1.9 mmol/L (0.7-2.1) Calcium Level 10.6 mg/dl (8.4-10.2) Total Bilirubin 1.4 mg/dl (0.2-1.3) Aspartate Amino Transf (AST/SGOT) 57 U/L (0-35) Alanine Aminotransferase (ALT/SGPT) 53 U/L (0-56) Alkaline Phosphatase 88 U/L (0-126) Total Protein 8.0 g/dl (6.3-8.2) Albumin 4.9 g/dl (3.5-5.0) Urinalysis Test 12/23/18 19:14 Urine Color Yellow Urine Clarity Slightly-cloudy Urine pH 6.0 pH (4.8-9.5) Urine Specific [place] 1.019 Urine Protein 100 mg/dL (NEGATIVE) Urine Glucose (UA) Negative mg/dL (NEGATIVE) Urine Ketones Trace mg/dL (NEGATIVE) Urine Blood Large (NEGATIVE) Urine Nitrite Negative (NEGATIVE) Urine Bilirubin Negative (NEGATIVE) Urine Urobilinogen Negative mg/dL (0.2-1.9) Urine Leukocyte Esterase Trace (NEGATIVE) Urine RBC 106 /HPF (0-2/HPF) Urine WBC 17 /HPF (0-5/HPF) Urine Squamous Epithelial Cells Many /LPF (</=FEW) Urine Bacteria Few /HPF (NONE-FEW) Urine Mucus Few /HPF (NONE-FEW) EKG/Imaging Imaging CT ABDOMEN PELVIS W/ CON History: 53-year-old female ovarian carcinoma, abdominal pain and a history of small bowel obstruction in the past. Technique: CT images were obtained through the abdomen and pelvis with intravenous contrast using: Isovue-370 75 mls. Coronal and sagittal reformations were then created. One of the following dose optimization techniques was utilized in the performance of this exam: Automated exposure control; adjustment of the mA and/or kV according to the patient's size; or use of an iterative reconstruction technique. Specific details can be referenced in the facility's radiology CT exam operational policy. Comparison study: CT scan July 17, 2018. Findings: Lung bases: Negative Liver: There is no finding of focal lesion in the liver to suggest metastatic disease. Again noted are tiny low-density lesions that are too small to characterize. There is no hepatic or portal vein thrombosis. Biliary: The gallbladder is unremarkable and there is no gallstone disease or biliary ductal dilatation. Spleen: Negative. Adrenals: Negative Pancreas: Negative. Kidneys/genitourinary/retroperitoneum: There is an internal nephroureteral stent on the right side in satisfactory position. There is no hydronephrosis on the left side.. Bowel/peritoneum/mesentery: The stomach is dilated with fluid. There are numerous loops of jejunum and ileum that are also dilated. Dilatation of bowel extends all the way to the right lower quadrant where there is a transition point similar to that noted on the prior exam. In this region there is equalization of small bowel contents again consistent with small bowel obstruction. Pelvic/genital urinary: Bladder is unremarkable. Vessels: Negative. Lymph node: Negative. Body wall/bones: Negative Peritoneal cavity: No findings of ascites or pneumoperitoneum. IMPRESSION: 1. In this patient with history of ovarian carcinoma there is again noted to be a small bowel obstruction. There are numerous dilated loops of jejunum and ileum and there is again a transition point in the right lower quadrant where the patient has sacralization of small bowel contents. There is a small amount of reactive free fluid in the mesentery. The stomach is also markedly dilated. 2. Internal nephroureteral stent on the right side. Results were called to DEX JENNINGS M.D. At 12/23/2018 8:59 PM. Report Dictated By: Gomez Lozoya MD at 12/23/2018 8:53 PM ED Course/Re-evaluation Clinical Indication for ER IV: IV Access ED Course Labs obtained, patient sent for CT scan, given Zofran and Dilaudid to try and help pain and nausea. She felt much better after this. CT shows evidence of recurrent bowel obstruction. Discussed the case with Dr. Silverio, who accepted the patient for admission. Decision to Disposition Date: December 23, 2018 Decision to Disposition Time: 21:19 Depart Departure Latest Vital Signs Vital Signs Date Time Temp Pulse Resp B/P (MAP) Pulse Ox O2 Delivery O2 Flow Rate FiO2 12/23/18 21:35 59 94 12/23/18 21:30 105/70 (82) 12/23/18 21:29 Nasal Cannula 1 12/23/18 19:13 98.1 17 Impression: Primary Impression: Small bowel obstruction Condition: Condition Unchanged Disposition: Admitted from ER Referrals: JOSÉ PÉREZ MD (PCP) DEX JENNINGS MD December 23, 2018 19:20
[2018-12-23] MEDS ORDERED: NS(*) 0.9% 1000 ML BAG 1,000 ML IV ONE (19:40)
[2018-12-23] MEDS ORDERED: HYDROMORPHONE HCL 1 MG/ML SYRINGE IVP ONE (19:40)
[2018-12-23] MEDS ORDERED: ONDANSETRON 4 MG/2 ML VIAL IVP ONE (19:40)
[2018-12-23 20:08] LABS: PLATELET COUNT, AUTOMATED 301 K/uL (150-450)
[2018-12-23] MEDS ORDERED: IOPAMIDOL 76% 100 ML INFUS BTL 100 ML ONE (20:24)
--- NOTE | 2018-12-23 21:03 | RADIOLOGY IMAGING REPORT ---
FACILITY: [facility] PATIENT NAME: Laverne Mcadams : 1965 MR: [id number] V: [id number] EXAM DATE: ORDERING PHYSICIAN: DEX JENNINGS TECHNOLOGIST: Location: [facility] Patient: Laverne Mcadams : 1965 Visit/Account:[id number] Date of Sevice: 12/23/2018 CT ABDOMEN PELVIS W/ CON History: 53-year-old female ovarian carcinoma, abdominal pain and a history of small bowel obstructio n in the past. Technique: CT images were obtained through the abdomen and pelvis with intravenous contrast using: I sovue-370 75 mls. Coronal and sagittal reformations were then created. One of the following dose optimization techniques was utilized in the performance of this exam: Autom ated exposure control; adjustment of the mA and/or kV according to the patient's size; or use of an i terative reconstruction technique. Specific details can be referenced in the facility's radiology C T exam operational policy. Comparison study: CT scan July 17, 2018. Findings: Lung bases: Negative Liver: There is no finding of focal lesion in the liver to suggest metastatic disease. Again noted ar e tiny low-density lesions that are too small to characterize. There is no hepatic or portal vein thr ombosis. Biliary: The gallbladder is unremarkable and there is no gallstone disease or biliary ductal dilatat ion. Spleen: Negative. Adrenals: Negative Pancreas: Negative. Kidneys/genitourinary/retroperitoneum: There is an internal nephroureteral stent on the right side in satisfactory position. There is no hydronephrosis on the left side.. Bowel/peritoneum/mesentery: The stomach is dilated with fluid. There are numerous loops of jejunum an d ileum that are also dilated. Dilatation of bowel extends all the way to the right lower quadrant wh ere there is a transition point similar to that noted on the prior exam. In this region there is equa lization of small bowel contents again consistent with small bowel obstruction. Pelvic/genital urinary: Bladder is unremarkable. Vessels: Negative. Lymph node: Negative. Body wall/bones: Negative Peritoneal cavity: No findings of ascites or pneumoperitoneum. IMPRESSION: 1. In this patient with history of ovarian carcinoma there is again noted to be a small bowel obstruc tion. There are numerous dilated loops of jejunum and ileum and there is again a transition point in the right lower quadrant where the patient has sacralization of small bowel contents. There is a smal l amount of reactive free fluid in the mesentery. The stomach is also markedly dilated. 2. Internal nephroureteral stent on the right side. Results were called to DEX JENNINGS M.D. At 12/23/2018 8:59 PM. Report Dictated By: Gomez Lozoya MD at 12/23/2018 8:53 PM Report E-Signed By: Gomez Lozoya MD at 12/23/2018 8:59 PM WSN:[id number]
[2018-12-23 22:30] VITALS: BP 114/67
[2018-12-23] MEDS ORDERED: MORPHINE 1 MG/ML 30 ML PCA IV PRN (23:10)
[2018-12-23] MEDS ORDERED: ONDANSETRON 4 MG/2 ML VIAL IVP PRN (23:10)
[2018-12-23] MEDS ORDERED: NS(*) 0.9% 1000 ML BAG 1,000 ML IV PRN (23:10)
[2018-12-24] MEDS ORDERED: MORPHINE 50 MG/50 ML PCA BAG IV PRN ×2 (00:20→07:35)
[2018-12-24] MEDS ORDERED: PCA LOCKBOX KEYS XX ONE (00:26)
[2018-12-24 03:02] VITALS: BP 104/63
[2018-12-24 07:40] VITALS: BP 95/59
--- NOTE | 2018-12-24 08:41 | Short(Outpt) Discharge Summary ---
Discharge Summary Reason for Hosp/Final Diag: (1) Small bowel obstruction Status: Resolved Hospital Course & Plan: 12/24/18: Admitted for management of SBO with IV fluids and bowel rest. Pt feeling better this morning and started herself on clear diet which she has tolerated and she reports that she's feeling back to normal and she wishes to be discharged this morning. Will d/c to home. (2) Recurrent carcinoma of ovary Status: Chronic Departure Discharge to: Home, Self Care Discharge Instructions Home Meds Active Scripts Ondansetron (ZOFRAN ODT) 4 Mg Tab.rapdis, 4 MG PO Q6-8H PRN for NAUSEA, #30 TAB.BRIDGET Prov:GABY DANIEL MD 05/05/18 Reported Medications Ibuprofen (IBUPROFEN) 400 Mg Tablet, 1 TAB PO Q6H PRN for PAIN, #20 TAB 07/18/18 Pitavastatin Calcium (LIVALO) 4 Mg Tablet, 4 MG PO QDAY 05/04/18 Cyclophosphamide (Cyclophosphamide) 50 Mg Capsule, 50 MG PO QDAY, CAPSULE 01/16/18 Cholecalciferol (Vitamin D3) (VITAMIN D) 1,000 Unit Capsule, 1000 UNIT PO QDAY, CAPSULE DAILY FOR 2 WEEKS A MONTH 01/16/18 Bevacizumab (AVASTIN) 100 Mg/4 Ml Injs, 100 MG IV Q3WK 01/16/18 Discontinued Reported Medications Phenazopyridine Hcl (PHENAZOPYRIDINE HCL) 200 Mg Tablet, 200 MG PO TID PRN for BLADDER SPASMS, TAB 08/22/18 Diet: Regular Activity: As Tolerated Problem Qualifiers (1) Recurrent carcinoma of ovary: Laterality: unspecified laterality Qualified Codes: C56.9 - Malignant neoplasm of unspecified ovary NAV FORREST MD December 24, 2018 08:41
--- NOTE | 2018-12-24 08:47 | Gen Surgery History & Physical ---
History of Present Illness Chief Complaint Abdominal pain History of Present Illness 53yo female with recurrent ovarian cancer and h/o recurring SBOs presents to the ER with increased abdominal bloating and pain c/w another SBO. CT confirms SBO with transition point in RLQ. No other pertinent findings on CT such as mets, peritoneal caking, etc. Pt thinks symptoms started after she at half a pear. She's had herself on a low residual diet to prevent these obstructions and she feels it's been working as she hasn't had an SBO in "15 weeks" where she had 3 within a month prior to her diet modification. She thinks the pear had too much fiber for her intestines to tolerate. History Problems: (1) Liver dysfunction Status: Chronic (2) Hyperlipidemia Status: Chronic (3) Recurrent carcinoma of ovary Status: Chronic Home Meds Active Scripts Ondansetron (ZOFRAN ODT) 4 Mg Tab.rapdis, 4 MG PO Q6-8H PRN for NAUSEA, #30 TAB.BRIDGET Prov:GABY DANIEL MD 05/05/18 Reported Medications Ibuprofen (IBUPROFEN) 400 Mg Tablet, 1 TAB PO Q6H PRN for PAIN, #20 TAB 07/18/18 Pitavastatin Calcium (LIVALO) 4 Mg Tablet, 4 MG PO QDAY 05/04/18 Cyclophosphamide (Cyclophosphamide) 50 Mg Capsule, 50 MG PO QDAY, CAPSULE 01/16/18 Cholecalciferol (Vitamin D3) (VITAMIN D) 1,000 Unit Capsule, 1000 UNIT PO QDAY, CAPSULE DAILY FOR 2 WEEKS A MONTH 01/16/18 Bevacizumab (AVASTIN) 100 Mg/4 Ml Injs, 100 MG IV Q3WK 01/16/18 Discontinued Reported Medications Phenazopyridine Hcl (PHENAZOPYRIDINE HCL) 200 Mg Tablet, 200 MG PO TID PRN for BLADDER SPASMS, TAB 08/22/18 Allergies: Coded Allergies: gluten (Verified Allergy, Mild, 11/21/18) Feels better not eating Gluten methimazole (Verified Allergy, Unknown, Hives/Rash, 11/21/18) Patient History: FH: COPD (chronic obstructive pulmonary disease) FATHER FH: Gilbert's disease FATHER FH: arthritis FATHER FH: celiac disease FH: hypothyroidism CHILD CHILD FH: multiple sclerosis BROTHER OR SISTER BROTHER OR SISTER FH: osteoporosis MOTHER BROTHER OR SISTER Graves' disease Review of Systems All Systems Reviewed/Normal: Yes, Except as Noted Gastrointestinal: Abdominal Pain Exam General Appearance: Alert, Awake, No Acute Distress, Afebrile Neuro: No Gross deficits Eyes: PERRLA GI: Abd Soft and Non-Tender Extremities: Warm, Perfused Psych: Alert & Oriented X3, Appropriate Mood & Affect Medical Decision Making Data Points Result Diagram: 12/23/18194812/23/181948 Assessment and Plan Problems: (1) Small bowel obstruction Status: Acute Assessment & Plan: 12/24/18: Admitted for management of SBO with IV fluids and bowel rest. Pt doesn't want and NG tube. Will hold off on NG tube and will place if N/V occur. 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 Start with conservative management. Pt agreeable with this plan. (2) Recurrent carcinoma of ovary Status: Chronic Condition Stable. Time Spent: < 30 min Venous Thromboembolism VTE Risk Physician Assess for VTE Risk: Yes Patient's VTE Risk: Low VTE Diagnostic Test 2 Days Prior to Admit: No Antithrombotics Is Pt On Any Antithrombotics?: No Problem Qualifiers (1) Recurrent carcinoma of ovary: Laterality: unspecified laterality Qualified Codes: C56.9 - Malignant neoplasm of unspecified ovary NAV FORREST MD December 24, 2018 08:46
== END 2018-12-24 08:38 | disposition home or self-care (01) ==
LOC: ER 19:35 → MED 21:56 → INTOOBSV 21:56 → UNDOADMOB 21:56 → UNDODISOB 12-24 09:10
PROVIDERS: ADMIT Surgery; ATTEND Surgery
DX: K56.609 Unspecified intestinal obstruction, unspecified as to partial versus complete obstruction (principal); Z85.43 Personal history of malignant neoplasm of ovary
CPT/HCPCS: 74177; 81001; 83605; 85025; 96361; 96374; 96375; 99284; G0378; J1170; J2405; J7030; Q9967; 82040; 82247; 82310; 82374; 82435; 82565; 82947; 84075; 84132; 84155; 84295; 84450; 84460; 84520

== ENCOUNTER 2019-01-29 17:40 | Emergency (ER) | payer OTHER ==
[2018-07-17 12:13] VITALS: Wt 49.9 kg
--- NOTE | 2019-01-29 18:05 | ER Report ---
History and Physical Time Seen By MD: 18:04 Hx. of Stated Complaint: patient had abdominal surgery on sunday of last week. she reports an increase in abdominal and back pain. she is also reporting shortness of breath when she lays down and tachycardia. HPI/ROS CHIEF COMPLAINT: abdominal pain HISTORY OF PRESENT ILLNESS: This is a 53 year old female. She had surgery in [place] last Sunday and had take down of adhesions, partial colectomy and re- anastamosis and replacement of right ureteral stent. Having abdominal and back pain. Nausea today, not drinking very much oral intake, food or liquid. No fevers or chills. Feeling short of breath, more so with lying down. She has been passing gas and having bowel movements, although not a large amount because of decreased oral intake. Has been urinating a little less as well. Allergies: Coded Allergies: gluten (Verified Allergy, Mild, 11/21/18) Feels better not eating Gluten methimazole (Verified Allergy, Unknown, Hives/Rash, 11/21/18) Home Meds Active Scripts Ondansetron (ZOFRAN ODT) 4 Mg Tab.rapdis, 4 MG PO Q6-8H PRN for NAUSEA, #30 TAB.BRIDGET Prov:GABY DANIEL MD 05/05/18 Reported Medications Ibuprofen (IBUPROFEN) 400 Mg Tablet, 1 TAB PO Q6H PRN for PAIN, #20 TAB 07/18/18 Pitavastatin Calcium (LIVALO) 4 Mg Tablet, 4 MG PO QDAY 05/04/18 Cyclophosphamide (Cyclophosphamide) 50 Mg Capsule, 50 MG PO QDAY, CAPSULE 01/16/18 Cholecalciferol (Vitamin D3) (VITAMIN D) 1,000 Unit Capsule, 1000 UNIT PO QDAY, CAPSULE DAILY FOR 2 WEEKS A MONTH 01/16/18 Bevacizumab (AVASTIN) 100 Mg/4 Ml Injs, 100 MG IV Q3WK 01/16/18 Reviewed Nurses Notes: Yes Hx Smoking: No Smoking Status: Never Smoker Hx Substance Use Disorder: No Hx Alcohol Use: Yes (INFREQUENTLY) Constitutional Vital Sign - Last 24 Hours 01/29/19 01/29/19 01/29/19 01/29/19 17:48 17:50 17:55 18:10 Temp 98.1 Pulse 116 86 99 Resp 24 B/P (MAP) 107/80 107/80 (89) Pulse Ox 92 98 94 O2 Delivery Room Air 01/29/19 01/29/19 01/29/19 01/29/19 18:25 18:32 18:40 19:00 Pulse 88 91 B/P (MAP) 112/82 (92) 119/92 (101) Pulse Ox 95 98 01/29/19 01/29/19 01/29/19 01/29/19 19:25 19:30 19:30 19:45 Pulse 73 77 B/P (MAP) 106/76 (86) 106/76 (86) Pulse Ox 96 100 99 01/29/19 01/29/19 01/29/19 01/29/19 20:00 20:15 20:30 21:45 Pulse 86 84 76 B/P (MAP) 114/81 (92) 110/84 (93) Pulse Ox 99 99 95 01/29/19 01/29/19 01/29/19 01/29/19 22:00 22:15 22:20 22:50 Pulse 69 75 74 70 Pulse Ox 95 93 93 93 Intake and Output 01/29/19 01/29/19 01/30/19 15:01 23:01 07:01 Intake Total 1000 ml 1000 ml Balance 1000 ml 1000 ml Physical Exam General Appearance: The patient is alert. No acute distress. Eyes: Pupils are equal, round. No pallor, injection or icterus. ENT: Mucous membranes are a little dry but otherwise with Normal oral mucosa. Posterior oropharynx is normal. Respiratory: Breathing easily and unlabored. Lungs are clear to auscultation. Cardiovascular: Regular rate and rhythm. No murmurs, gallops or rubs. Normal capillary refill. No edema. Gastrointestinal: Abdomen is soft with some midline discomfort. Incision is healing well without signs of infection. Area of pain seems worst in the midline just to the left side of the proximal incision. Nondistended. Normal active bowel sounds. Neurological: Alert and oriented Skin: Warm and dry. No rashes. DIFFERENTIAL DIAGNOSIS: After history and physical exam, differential diagnosis was considered for a patient with abdominal pain and with shortness of breath after recent abdominal surgery. Medical Decision Making Data Points Result Diagram: 01/29/19 1755 01/29/19 1755 Laboratory Hematology Test 01/29/19 00:00 01/29/19 17:55 01/29/19 19:20 B-Type Natriuretic Peptide 22 pg/ml (0-100) Red Blood Count 3.80 M/uL (4.17-5.56) Mean Corpuscular Volume 101.0 fL (80.0-96.0) Mean Corpuscular Hemoglobin 35.8 pg (26.0-33.0) Mean Corpuscular Hemoglobin Concent 35.4 g/dL (32.0-36.0) Red Cell Distribution Width 13.3 % (11.5-14.5) Mean Platelet Volume 6.8 fL (7.2-11.1) Neutrophils (%) (Auto) 66.6 % (39.4-72.5) Lymphocytes (%) (Auto) 17.1 % (17.6-49.6) Monocytes (%) (Auto) 11.2 % (4.1-12.4) Eosinophils (%) (Auto) 4.2 % (0.4-6.7) Basophils (%) (Auto) 0.9 % (0.3-1.4) Nucleated RBC Relative Count (auto) 0.2 /100WBC Neutrophils # (Auto) 3.2 K/uL (2.0-7.4) Lymphocytes # (Auto) 0.8 K/uL (1.3-3.6) Monocytes # (Auto) 0.5 K/uL (0.3-1.0) Eosinophils # (Auto) 0.2 K/uL (0.0-0.5) Basophils # (Auto) 0.0 K/uL (0.0-0.1) Nucleated RBC Absolute Count (auto) 0.01 K/uL Sodium Level 134 mmol/L (137-145) Potassium Level 3.6 mmol/L (3.5-5.0) Chloride Level 98 mmol/L (98-107) Carbon Dioxide Level 21 mmol/L (22-31) Blood Urea Nitrogen 25 mg/dl (7-18) Creatinine 1.10 mg/dl (0.52-1.04) Glomerular Filtration Rate Calc 51.8 Random Glucose 112 mg/dl (75-110) Calcium Level 9.9 mg/dl (8.4-10.2) Total Bilirubin 1.2 mg/dl (0.2-1.3) Aspartate Amino Transf (AST/SGOT) 32 U/L (0-35) Alanine Aminotransferase (ALT/SGPT) 40 U/L (0-56) Alkaline Phosphatase 138 U/L (0-126) Troponin I < 0.012 ng/ml Total Protein 7.6 g/dl (6.3-8.2) Albumin 4.1 g/dl (3.5-5.0) Amylase Level 80 U/L (0-110) Lipase 269 U/L (23-300) Urine Color Yellow Urine Clarity Slightly-cloudy Urine pH 5.0 pH (4.8-9.5) Urine Specific Laura 1.054 Urine Protein 30 mg/dL (NEGATIVE) Urine Glucose (UA) Negative mg/dL (NEGATIVE) Urine Ketones Negative mg/dL (NEGATIVE) Urine Blood Large (NEGATIVE) Urine Nitrite Negative (NEGATIVE) Urine Bilirubin Negative (NEGATIVE) Urine Urobilinogen Negative mg/dL (0.2-1.9) Urine Leukocyte Esterase Trace (NEGATIVE) Urine RBC 62 /HPF (0-2/HPF) Urine WBC 12 /HPF (0-5/HPF) Urine Squamous Epithelial Cells Many /LPF (</=FEW) Urine Bacteria Few /HPF (NONE-FEW) Urine Mucus Few /HPF (NONE-FEW) Chemistry Test 01/29/19 00:00 01/29/19 17:55 01/29/19 19:20 B-Type Natriuretic Peptide 22 pg/ml (0-100) White Blood Count 4.8 k/uL (4.5-11.0) Red Blood Count 3.80 M/uL (4.17-5.56) Hemoglobin 13.6 g/dL (12.0-16.0) Hematocrit 38.4 % (34.0-47.0) Mean Corpuscular Volume 101.0 fL (80.0-96.0) Mean Corpuscular Hemoglobin 35.8 pg (26.0-33.0) Mean Corpuscular Hemoglobin Concent 35.4 g/dL (32.0-36.0) Red Cell Distribution Width 13.3 % (11.5-14.5) Platelet Count 426 K/uL (150-450) Mean Platelet Volume 6.8 fL (7.2-11.1) Neutrophils (%) (Auto) 66.6 % (39.4-72.5) Lymphocytes (%) (Auto) 17.1 % (17.6-49.6) Monocytes (%) (Auto) 11.2 % (4.1-12.4) Eosinophils (%) (Auto) 4.2 % (0.4-6.7) Basophils (%) (Auto) 0.9 % (0.3-1.4) Nucleated RBC Relative Count (auto) 0.2 /100WBC Neutrophils # (Auto) 3.2 K/uL (2.0-7.4) Lymphocytes # (Auto) 0.8 K/uL (1.3-3.6) Monocytes # (Auto) 0.5 K/uL (0.3-1.0) Eosinophils # (Auto) 0.2 K/uL (0.0-0.5) Basophils # (Auto) 0.0 K/uL (0.0-0.1) Nucleated RBC Absolute Count (auto) 0.01 K/uL Glomerular Filtration Rate Calc 51.8 Calcium Level 9.9 mg/dl (8.4-10.2) Total Bilirubin 1.2 mg/dl (0.2-1.3) Aspartate Amino Transf (AST/SGOT) 32 U/L (0-35) Alanine Aminotransferase (ALT/SGPT) 40 U/L (0-56) Alkaline Phosphatase 138 U/L (0-126) Troponin I < 0.012 ng/ml Total Protein 7.6 g/dl (6.3-8.2) Albumin 4.1 g/dl (3.5-5.0) Amylase Level 80 U/L (0-110) Lipase 269 U/L (23-300) Urine Color Yellow Urine Clarity Slightly-cloudy Urine pH 5.0 pH (4.8-9.5) Urine Specific Laura 1.054 Urine Protein 30 mg/dL (NEGATIVE) Urine Glucose (UA) Negative mg/dL (NEGATIVE) Urine Ketones Negative mg/dL (NEGATIVE) Urine Blood Large (NEGATIVE) Urine Nitrite Negative (NEGATIVE) Urine Bilirubin Negative (NEGATIVE) Urine Urobilinogen Negative mg/dL (0.2-1.9) Urine Leukocyte Esterase Trace (NEGATIVE) Urine RBC 62 /HPF (0-2/HPF) Urine WBC 12 /HPF (0-5/HPF) Urine Squamous Epithelial Cells Many /LPF (</=FEW) Urine Bacteria Few /HPF (NONE-FEW) Urine Mucus Few /HPF (NONE-FEW) Urinalysis Test 01/29/19 19:20 Urine Color Yellow Urine Clarity Slightly-cloudy Urine pH 5.0 pH (4.8-9.5) Urine Specific Laura 1.054 Urine Protein 30 mg/dL (NEGATIVE) Urine Glucose (UA) Negative mg/dL (NEGATIVE) Urine Ketones Negative mg/dL (NEGATIVE) Urine Blood Large (NEGATIVE) Urine Nitrite Negative (NEGATIVE) Urine Bilirubin Negative (NEGATIVE) Urine Urobilinogen Negative mg/dL (0.2-1.9) Urine Leukocyte Esterase Trace (NEGATIVE) Urine RBC 62 /HPF (0-2/HPF) Urine WBC 12 /HPF (0-5/HPF) Urine Squamous Epithelial Cells Many /LPF (</=FEW) Urine Bacteria Few /HPF (NONE-FEW) Urine Mucus Few /HPF (NONE-FEW) EKG/Imaging EKG Interpretation 12 lead EKG: Rhythm: Normal sinus rhythm, rate 92 [place]: normal QRS: Narrow complex ST segments: Nonspecific flattening of the T waves but no ST elevation or depression noted Imaging COMPUTED TOMOGRAPHY ANGIOGRAM OF THE CHEST, ABDOMEN, AND PELVIS with CONTRAST DATE OF EXAM: 01/29/2019. INDICATION: . abd, back pain short of breath, s/p recent bowel resection. . TECHNIQUE: Contiguous axial CT images were obtained through the chest, abdomen, and pelvis after the administration of 75 cc Isovue-370. Coronal and sagittal reformatted images were submitted. MIP reconstructions were submitted COMPARISON: CT abdomen and pelvis December 23, 2018.. FINDINGS:Negative for pulmonary arterial embolus. Contrast phase timing results in better opacification of the pulmonary arteries than on the aorta. There is no aneurysm, and there is no clear evidence of dissection. The thoracic arch is suboptimally opacified. The abdominal aorta is better opacified. The celiac axis is well opacified. The JAMIE and SMA are well opacified as are both renal arteries. Thyroid: Grossly unremarkable. Thoracic inlet: No adenopathy. Heart and great vessels: Heart size is normal. Mediastinum and ronnie: No mediastinal or hilar adenopathy. Lungs and pleura: No effusion, consolidation, or pneumothorax. Breast and axilla: Unremarkable by CT. Liver and hepatic vasculature: The liver is grossly unremarkable. Gallbladder and bile ducts: The gallbladder is not definitively identified. There is low density fluid in gallbladder fossa. There is also fluid tracking within the right paracolic gutter. Spleen: Normal Pancreas: Normal Adrenals: Normal Kidneys, ureters and bladder: A double-J nephroureteral stent has proximal pigtail at the renal pelvis and downstream pigtail within the bladder. Minimal prominence of the collecting system on the right. The bladder is incompletely filled. Retroperitoneum and aorta: Normal caliber aorta as above. GI tract, mesentery and peritoneum: Anastomosis involving the colon in the right lower quadrant is patent. There is a suggestion of sigmoid colonic wall thickening which is nonspecific and may be related to recent surgery. Minimal free air anteriorly within the abdomen and subcutaneous soft tissues is probably residual from recent surgery. Uterus and adnexa: Surgically absent uterus. Bones and soft tissues: No acute osseous abnormality. IMPRESSION: 1. No evidence of abdominal aortic aneurysm or dissection, and the major arterial vasculature of the abdomen is patent. 2. Fluid in the region of the gallbladder fossa and right paracolic gutter is likely residual from recent surgery and does not appear organized. 3. Colonic wall thickening near the anastomosis and of the sigmoid colon is nonspecific but is likely secondary to recent surgery. 4. Properly positioned at nephroureteral stent on the right with minimal prominence of the collecting system. 5. Small volume of free air in the abdomen and subcutaneous soft tissues is likely residual from recent surgery. 6. Negative for pulmonary arterial embolus. One of the following dose optimization techniques was utilized in the performance of this exam: Automated exposure control; adjustment of the mA and/or kV according to the patient's size; or use of an iterative reconstruction technique. Specific details can be referenced in the facility's radiology CT exam operational policy. Report Dictated By: Marycruz Rao MD at 01/29/2019 7:49 PM ED Course/Re-evaluation Clinical Indication for ER IV: Hydration, IV Access ED Course Labs were obtained after IV placed. Discussed the blood work with the patient. Normal CBC. Slightly increased BUN and creatinine at 25 and 1.1. Bicarbonate a little low at 21 and sodium a little low at 134. Liver function tests negative. Amylase and lipase negative. Patient initially unable to give a urine sample because of being dehydrated. I went in and reviewed all these labs with the patient. EKG with no acute changes, also discussed this with the patient. CT angiogram of the chest, abdomen and pelvis was done. No acute abnormality o ther than postsurgical changes. No evidence of pulmonary embolism or other vascular problem. I reviewed the scan with the patient. She did express dissatisfaction with her care tonight. She is concerned about kidney function and not getting IV fluids after the IV contrast. Waiting for CT scan results taking longer than expected and I did not want to give the fluids given her shortness of breath until final CT available. Gave 2 liters of IV fluids at this time now that the results are available. She has Zofran at home and will continue to use this. She will continue with oral hydration. Follow-up with her surgeon as planned. Decision to Disposition Date: Jan 29, 2019 Decision to Disposition Time: 21:16 Depart Departure Latest Vital Signs Vital Signs Date Time Temp Pulse Resp B/P (MAP) Pulse Ox O2 Delivery O2 Flow Rate FiO2 01/29/19 22:50 70 93 01/29/19 20:30 110/84 (93) 01/29/19 17:48 98.1 24 Room Air Impression: Primary Impression: Abdominal pain Condition: Improved Disposition: HOME OR SELF-CARE Referrals: JOSÉ PÉREZ MD (PCP) Patient Instructions: Abdominal Pain (ED) Additional Instructions: We did not find a specific cause for abdominal pain tonight. Continue to work on hydration as you have been doing. Zofran as needed for nausea. Follow-up if worsening symptoms. Problem Qualifiers Primary Impression: Abdominal pain Abdominal location: unspecified location Qualified Codes: R10.9 - Unspecified abdominal pain DEX JENNINGS MD Jan 29, 2019 18:05
[2019-01-29 18:33] LABS: PLATELET COUNT, AUTOMATED 426 K/uL (150-450)
[2019-01-29] MEDS ORDERED: NS(*) 0.9% 50 ML BAG 50 ML ONE (19:04)
[2019-01-29] MEDS ORDERED: IOPAMIDOL 76% 100 ML INFUS BTL 100 ML ONE (19:04)
--- NOTE | 2019-01-29 19:29 | EKG ---
FACILITY: [facility] - [place] PATIENT NAME: REMI STRICKLAND : [id number] MR: [id number] V: [id number] EXAM DATE: ORDERING PHYSICIAN: DEX JENNINGS TECHNOLOGIST: IVANNA Test Reason : SOB Blood Pressure : / mmHG Vent. Rate : 092 BPM Atrial Rate : 092 BPM P-R Int : 124 ms QRS Dur : 072 ms QT Int : 366 ms P-R-T Axes : 071 081 -47 degrees QTc Int : 452 ms Normal sinus rhythm T inversion consistent with inferior ischemia vs normal variant No previous ECGs available Confirmed by ELAN HUTSON ([id number]) on 01/29/2019 11:20:30 PM Referred By: Confirmed By:ELAN HUTSON
--- NOTE | 2019-01-29 20:16 | RADIOLOGY IMAGING REPORT ---
FACILITY: [facility] - [place] PATIENT NAME: Laverne Mcadams : 1965 MR: [id number] V: [id number] EXAM DATE: ORDERING PHYSICIAN: DEX JENNINGS TECHNOLOGIST: Location: [facility] Patient: Laverne Mcadams : 1965 Visit/Account:[id number] Date of Sevice: 01/29/2019 COMPUTED TOMOGRAPHY ANGIOGRAM OF THE CHEST, ABDOMEN, AND PELVIS with CONTRAST DATE OF EXAM: 01/29/2019. INDICATION: . abd, back pain short of breath, s/p recent bowel resection. . TECHNIQUE: Contiguous axial CT images were obtained through the chest, abdomen, and pelvis after the administration of 75 cc Isovue-370. Coronal and sagittal reformatted images were submitted. MIP nida nstructions were submitted COMPARISON: CT abdomen and pelvis December 23, 2018.. FINDINGS:Negative for pulmonary arterial embolus. Contrast phase timing results in better opacificati on of the pulmonary arteries than on the aorta. There is no aneurysm, and there is no clear evidence of dissection. The thoracic arch is suboptimally opacified. The abdominal aorta is better opacified. The celiac axis is well opacified. The JAMIE and SMA are well opacified as are both renal arteries. Thyroid: Grossly unremarkable. Thoracic inlet: No adenopathy. Heart and great vessels: Heart size is normal. Mediastinum and ronnie: No mediastinal or hilar adenopathy. Lungs and pleura: No effusion, consolidation, or pneumothorax. Breast and axilla: Unremarkable by CT. Liver and hepatic vasculature: The liver is grossly unremarkable. Gallbladder and bile ducts: The gallbladder is not definitively identified. There is low density flu id in gallbladder fossa. There is also fluid tracking within the right paracolic gutter. Spleen: Normal Pancreas: Normal Adrenals: Normal Kidneys, ureters and bladder: A double-J nephroureteral stent has proximal pigtail at the renal pelv is and downstream pigtail within the bladder. Minimal prominence of the collecting system on the righ t. The bladder is incompletely filled. Retroperitoneum and aorta: Normal caliber aorta as above. GI tract, mesentery and peritoneum: Anastomosis involving the colon in the right lower quadrant is pa tent. There is a suggestion of sigmoid colonic wall thickening which is nonspecific and may be relate d to recent surgery. Minimal free air anteriorly within the abdomen and subcutaneous soft tissues is probably residual from recent surgery. Uterus and adnexa: Surgically absent uterus. Bones and soft tissues: No acute osseous abnormality. IMPRESSION: 1. No evidence of abdominal aortic aneurysm or dissection, and the major arterial vasculature of the abdomen is patent. 2. Fluid in the region of the gallbladder fossa and right paracolic gutter is likely residual from re cent surgery and does not appear organized. 3. Colonic wall thickening near the anastomosis and of the sigmoid colon is nonspecific but is likely secondary to recent surgery. 4. Properly positioned at nephroureteral stent on the right with minimal prominence of the collecting system. 5. Small volume of free air in the abdomen and subcutaneous soft tissues is likely residual from rece nt surgery. 6. Negative for pulmonary arterial embolus. One of the following dose optimization techniques was utilized in the performance of this exam: Autom ated exposure control; adjustment of the mA and/or kV according to the patient's size; or use of an i terative reconstruction technique. Specific details can be referenced in the facility's radiology C T exam operational policy. Report Dictated By: Marycruz Rao MD at 01/29/2019 7:49 PM Report E-Signed By: Marycruz Rao MD at 01/29/2019 8:10 PM WSN:[id number]
[2019-01-29 20:30] VITALS: BP 110/84
[2019-01-29] MEDS ORDERED: NS(*) 0.9% 1000 ML BAG 1,000 ML IV ONE ×2 (21:10)
== END 2019-01-29 23:06 | disposition home or self-care (01) ==
LOC: ER 18:14
DX: R10.9 Unspecified abdominal pain (principal)
CPT/HCPCS: 71275; 74174; 81001; 82150; 83690; 83880; 84484; 85025; 93005; 96360; 96361; 99284; J7030; J7050; Q9967; 82040; 82247; 82310; 82374; 82435; 82565; 82947; 84075; 84132; 84155; 84295; 84450; 84460; 84520